=== PATIENT | male | born 1945 | race Caucasian/White ===

== ENCOUNTER 2023-05-15 14:44 | Outpatient (AMB) | payer MEDICARE, SELFPAY ==
[2023-05-15 14:51] VITALS: BP 114/64; PULSE 66; O2SAT 95; BMI 27.2
--- NOTE | 2023-05-15 14:51 | A.OFFVIS_ITS ---
Intake Vital Signs 05/15/23 14:51 Height 5 ft 9 in Weight 184 lb 1.376 oz BMI 27.2 BP 114/64 Blood Pressure Location Rt brachial Position Sitting Pulse 66 Pulse Source Pulse Oximeter Pulse Oximetry (%) 95 Oxygen Delivery Method Room Air Intake Visit Reasons: Abnormal CT scan Regional Director Of Admissions Required: No Transportation Maintenance Specialist: Transportation Maintenance Specialist offered & declined Accompanied by: Self / Same As Patient Allergies No Known Allergies Allergy (Verified 05/15/23 14:55) Medication List - Last Reconciled 05/15/23 by Jana Simpson LPN albuterol sulfate 90 mcg/actuation (ProAir HFA) 2 puffs inhalation Q4H PRN azathioprine 100 mg PO DAILY budesonide-formoterol 80-4.5 mcg/actuation (Symbicort) 2 puffs inhalation BID doxycycline hyclate 100 mg PO BID loratadine (Children's Claritin) 5 mg PO DAILY pantoprazole 40 mg PO DAILY HPI HPI Comments History of Present Illness Details The patient is here for pulmonary evaluation. 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 back in 2017 the patient developed worsening respiratory symptoms after surgery did require 2 bronchoscopy done at [facility]. He did have a endobronchial biopsy demonstrating evidence of eosinophilia along with chronic inflammation with Charcot layden crystals suggestive of the diagnosis of asthma. Over the summer the patient worsening respiratory symptoms. finally his symptoms became so significant that he decided to go to the ER back in March 2023 to be assess for the worsening symptoms. The patient states that this is the 1st time that he is actually seat urgent medical care for his respiratory status because he was so concerned. He did undergo a chest x-ray demonstrating his chronic findings primarily with parenchymal disease in the left hemithorax. Evidence of hyperinflation as well. He was treated with doxycycline and also prednisone. Overall the patient is doing better. Right now he is back to his baseline. In the meantime I did review his last CT scan from January 2023 demonstrating the cystic like area on his left hemithorax associated with bronchiectasis and he also has evidence of chronic bronchitis throughout. As far as his blood work his eosinophils were significantly elevated at 900. patient is known to have significant allergies although he has not had allergy testing some time. Base of the bronchiectatic changes need to consider conditions such as allergic bronchopulmonary mycosis. Will go ahead and request blood work in addition to allergy testing. The patient also undergo pulmonary function studies. In view of his bronchiectatic changes the patient does need a nebulizer for both bronchodilation also pulmonary hygiene. The patient also has a flutter valve already. Therefore he will start the nebulized therapy once or twice a day followed by the flutter valve for pulmonary toilet. He will try to provide a sputum both AFB and Gram staining culture. If the patient continues to be symptomatic and we can not provide a sputum then will consider bronchoscopy at that point. 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 Asthma Allergies Chronic allergic rhinitis Bronchiectasis Social History (Updated 05/15/23 @ 14:56 by Jana Simpson LPN) Patient Tobacco Use Status: Former Tobacco user Tobacco use type: Cigarette Cigarette Packs Per Day: 1 Years Smoked: 20 Review of Systems Const Denies fatigue and Denies fever(s) Eyes Denies change in vision ENT Reports nasal congestion and Reports nasal discharge Card Denies chest pain and Reports dyspnea on exertion Resp Reports chest congestion, Reports cough, Reports dyspnea on exertion and Reports wheezing GI Reports no additional complaints Musc Reports no additional complaints Skin/Breast Denies rash Neuro Reports no additional complaints Endo Denies fatigue Rob/Lymph Denies lymphadenopathy Aller/Immun Reports wheezing Physical Exam Vital Signs: Last Vital Signs Pulse 66 05/15/23 14:51 BP 114/64 05/15/23 14:51 Pulse Ox 95 05/15/23 14:51 Oxygen Delivery Method Room Air 05/15/23 14:51 BMI result Body Mass Index 27.2 Const General: comfortable HEENT Head: Yes normocephalic Neck Neck: Yes supple Chest Chest palpation & inspection: normal inspection of the chest Resp Effort & Inspection: normal respiratory effort Auscultation: no rhonchi, wheezes and diminished lung sounds Cardio Rate: regular rate Rhythm: regular rhythm Heart sounds: S1 normal heart sound present and S2 normal heart sound present GI Palpation (GI): Soft to palpation Skin General skin exam: no rashes or lesions noted Extrem General: Yes no clubbing, cyanosis or edema Office Procedures Flu Questionnaire Does the patient have a severe egg allergy?: No Does the patient have severe life threatening allergies?: No Does the patient have a fever or illness today?: No Has the patient ever had Guillain-[place] Syndrome?: No Has the patient ever had any past reaction to a flu shot?: No Immunizations flu vacc [id number] 6mos up(PF) 60 mcg(15 mcgx4)/0.5 mL IM syringe Performing Provider: Davide Guerrero MD Performing Location: [facility] Administered by: Radha Marcano LPN on 05/15/23 15:42 Dose Route Admin Location Dispensed Lot Number Expiration Date NDC Campaign Marketing Manager 0.5 mL IM Right Deltoid 0.5 mL [id number] 01/18/24 31925-399-69 [employer] VIS Given Date VIS Provided VIS Publication Date 05/15/23 Single Vaccine 21 Eligibility Eligibility Date Funding Source Not [facility] Eligible 05/15/23 Private Results Reviewed Results Reviewed: personally reviewed CT chest 02/09 with cystic lung disease and bronchiectasis; CXR 04/12 unchanged Assessment & Plan Assessment & Plan (1) Bronchiectasis: Code(s): J47.9 - Bronchiectasis, uncomplicated Qualifiers: Bronchiectasis type: uncomplicated Qualified Code(s): J47.9 - Bronchiectasis, uncomplicated (2) Chronic allergic rhinitis: Code(s): J30.9 - Allergic rhinitis, unspecified (3) Allergies: Code(s): T78.40XA - Allergy, unspecified, initial encounter Qualifiers: Encounter type: initial encounter Qualified Code(s): T78.40XA - Allergy, unspecified, initial encounter (4) Asthma: Code(s): J45.909 - Unspecified asthma, uncomplicated Qualifiers: Asthma severity: severe Asthma persistence: persistent Asthma complication type: uncomplicated Qualified Code(s): J45.50 - Severe persistent asthma, uncomplicated (5) Congenital cystic disease of lung: Code(s): Q33.0 - Congenital cystic lung Plan Nebulizer provided Albuterol BID followed by flutter valve for CPT continue symbicort Sputum cx for gs and afb bloodwork/allergy testing PFTs alpha 1 testing consider sweat test in the future F/U 2 months Orders: Orders Sputum Cult + Gram stain Today J47.9 - Bronchiectasis, uncomplicated Acid-fast Culture + Smear Today J47.9 - Bronchiectasis, uncomplicated Erythrocyte Sedimentation Rate Today J30.9 - Allergic rhinitis, unspecified, J45.909 - Unspecified asthma, uncomplicated, J47.9 - Bronchiectasis, uncomplicated, T78.40XA - Allergy, unspecified, initial encounter T Spot TB Today J30.9 - Allergic rhinitis, unspecified, J45.909 - Unspecified asthma, uncomplicated, J47.9 - Bronchiectasis, uncomplicated, T78.40XA - Allergy, unspecified, initial encounter PFT pulmonary function test Today J47.9 - Bronchiectasis, uncomplicated Influenza [id number] Immunization Today Z23 - Encounter for immunization Rast Allergen Today J30.9 - Allergic rhinitis, unspecified, J45.909 - Unspecified asthma, uncomplicated, J47.9 - Bronchiectasis, uncomplicated, T78.40XA - Allergy, unspecified, initial encounter Complete Blood Count Auto Diff Today J30.9 - Allergic rhinitis, unspecified, J45.909 - Unspecified asthma, uncomplicated, J47.9 - Bronchiectasis, uncomplicated, T78.40XA - Allergy, unspecified, initial encounter Basic Metabolic Panel Today J30.9 - Allergic rhinitis, unspecified, J45.909 - Unspecified asthma, uncomplicated, J47.9 - Bronchiectasis, uncomplicated, T78.40XA - Allergy, unspecified, initial encounter Hypersensitive Pneumonitis Prf Today J30.9 - Allergic rhinitis, unspecified, J45.909 - Unspecified asthma, uncomplicated, J47.9 - Bronchiectasis, uncomplicated, R91.8 - Other nonspecific abnormal finding of lung field, T78.40XA - Allergy, unspecified, initial encounter Immunoglobulin E Today J30.9 - Allergic rhinitis, unspecified, J45.909 - Unspecified asthma, uncomplicated, J47.9 - Bronchiectasis, uncomplicated, T78.40XA - Allergy, unspecified, initial encounter Immunoglobulins,IgG IgA IgM Today J30.9 - Allergic rhinitis, unspecified, J45.909 - Unspecified asthma, uncomplicated, J47.9 - Bronchiectasis, uncomplicated, T78.40XA - Allergy, unspecified, initial encounter NAIDA Reflex Titer and Pattern Today J30.9 - Allergic rhinitis, unspecified, J45.909 - Unspecified asthma, uncomplicated, J47.9 - Bronchiectasis, uncomplicated, T78.40XA - Allergy, unspecified, initial encounter Medications: New albuterol sulfate 2.5 mg (3 mL) inhalation BID 30 days 180 mL 11RF J44.89 - Other specified chronic obstructive pulmonary disease Coding Level of Care Code New Pt Level 5 (33300) Diagnoses Bronchiectasis without complication J47.9 Bronchiectasis type: uncomplicated Chronic allergic rhinitis J30.9 Allergy, initial encounter T78.40XA Encounter type: initial encounter Severe persistent asthma without complication J45.50 Asthma severity: severe Asthma persistence: persistent Asthma complication type: uncomplicated Congenital cystic disease of lung Q33.0 Time Spent (min) 60
== END 2023-05-15 15:31 | disposition home or self-care (01) ==
PROVIDERS: PCP Internal Medicine; Referring Provider Internal Medicine; Visit Provider Hospitalist
DX: J45.50 Severe persistent asthma, uncomplicated (principal); J30.9 Allergic rhinitis, unspecified; T78.40XA Allergy, unspecified, initial encounter; Q33.0 Congenital cystic lung
CPT/HCPCS: 99205

== ENCOUNTER → 2023-05-15 14:44 | Outpatient (BNVA) | payer MEDICARE, SELFPAY | PROVIDERS: PCP Internal Medicine; Referring Provider Internal Medicine; Visit Provider Hospitalist | DX: Z23 Encounter for immunization (principal); Q33.0 Congenital cystic lung; J47.9 Bronchiectasis, uncomplicated; J30.9 Allergic rhinitis, unspecified; J45.50 Severe persistent asthma, uncomplicated; T78.40XD Allergy, unspecified, subsequent encounter | CPT/HCPCS: 90471; 90686 ==

== ENCOUNTER 2023-05-16 10:10 | Outpatient (REF) | payer MEDICARE, SELFPAY ==
[2023-05-16 10:33] LABS: MANUAL DIFF FLAG NO
[2023-05-16 10:55] LABS: Basophils Percent Auto 0.6 % (0-2); Eosinophils Absolute Auto 0.4 X10*3/uL (0.0-0.4); Eosinophils Percent Auto 7.2 % (0-4); Hematocrit 37.2 % (42.0-52.0); Hemoglobin 12.5 g/dl (14.0-18.0); Imm Gran Abs Auto 0.03 X10*3/uL (0.00-0.03); Imm Gran Pct Auto 0.6 % (0.0-0.4); Lymphocytes Absolute Auto 0.6 X10*3/uL (1.2-4.9); Lymphocytes Percent Auto 12.8 % (20-40); Mean Corpuscular HGB Conc 33.6 g/dl (31.0-36.0); Mean Corpuscular Hemoglobin 31.4 pg (27.0-33.0); Mean Corpuscular Volume 93.5 fL (80.0-98.0); Mean Platelet Volume 9.3 fL (9.4-12.4); Monocytes Absolute Auto 0.4 X10*3/uL (0.1-1.2); Neutrophils Absolute Auto 3.4 x10*3/uL (2.0-8.3); Neutrophils Percent Auto 70.8 % (45-73); Platelet Count 218 X10*3/uL (160-400); Red Blood Count 3.98 X10*6/uL (4.60-5.80); Red Cell Distribution Width 13.7 % (11.0-16.0); White Blood Count 4.9 X10*3/uL (4.8-10.8)
[2023-05-16 11:37] LABS: Erythrocyte Sedimentation Rate 14 MM/HR (0-15)
[2023-05-16 11:41] LABS: Anion Gap 12 (12-20); Blood Urea Nitrogen 25 mg/dL (9-16); Calcium 8.7 mg/dL (8.4-10.2); Carbon Dioxide 24 mmol/L (22-29); Chloride 110 mmol/L (96-108); Estimated Glomerular Filt Rate > 60; Glucose Random 152 mg/dL (60-115); Potassium 3.8 mmol/L (3.3-5.1); Sodium 142 mmol/L (135-145)
[2023-05-18 19:34] LABS: TS Negative Control Passed; TS Panel A 0; TS Panel B 0; TS Positive Control Passed; TSpotTB Negative (Negative)
[2023-05-19 15:33] LABS: Anti Nuclear Antibody Screen NEGATIVE (NEGATIVE)
[2023-05-20 06:44] LABS: Immunoglobulin E 287 kU/L (<OR=114)
[2023-05-20 10:53] LABS: IgA 166 mg/dL (70-320); IgG 1087 mg/dL (600-1540); IgM 21 mg/dL (50-300)
[2023-05-23 13:14] LABS: Asperg fumigatus Precip Abs NEGATIVE (NEGATIVE); Micropoly faeni Abs NEGATIVE (NEGATIVE); Pigeon serum Abs NEGATIVE (NEGATIVE); Saccharo pora viridis Abs NEGATIVE (NEGATIVE); Thermo candidus Abs NEGATIVE (NEGATIVE); Thermoa vulgaris #1 NEGATIVE (NEGATIVE)
== END 2023-05-16 10:11 | disposition home or self-care (01) ==
LOC: HO.LAB 10:10
PROVIDERS: PCP Internal Medicine; Visit Provider Hospitalist
DX: J47.9 Bronchiectasis, uncomplicated (principal); T78.40XA Allergy, unspecified, initial encounter; J45.909 Unspecified asthma, uncomplicated; R91.8 Other nonspecific abnormal finding of lung field
CPT/HCPCS: 36415; 80048; 82784; 82785; 85025; 85652; 86003; 86038; 86331; 86481; 86606; 86609; 87070; 87116; 87205; 87206

== ENCOUNTER → 2023-06-18 14:24 | Outpatient (REF) | payer MEDICARE, SELFPAY ==
--- NOTE | 2023-06-18 14:28 | CA_ITS ---
Transthoracic Echocardiogram Amended Patient (Last, First, Middle): Vinicio Shahid, Gender: Male Date of : 1945 Age: 77 Procedure Date: 06/18/2023 Procedure Type: Transthoracic Echocardiogram Location: OP Height: 172.72 cm Weight: 86.18 kg BSA: 2.00 m2 Heart Rate: bpm BP: 116 / 68 mmHg Dividend Clerk: SB Referring MD: Davide Guerrero MD Detector Car Operator: Elan Puri MD Symptoms: I27.20 - Pulmonary hypertension, unspecified Study Quality: Adequate ECG Rhythm: NSR with atrial flutter Conclusions: - 1. Severe LV systolic dysfunction with LVEF of 25-30% with pseudonormal filling pattern 2. Mild aortic regurgitation 3. Mildly dilated ascending aorta at 4 cm 4. Trivial pericardial effusion Findings Left Ventricle Normal left ventricular cavity size. There is normal left ventricular wall thickness. The left ventricular systolic function is severely decreased. The visually estimated ejection fraction is between 25-30%. There is severe global hypokinesis. Spectral Doppler is indicative of a pseudonormal filling pattern. Peak GLS is -10.3% which is severely reduced. Right Ventricle Normal right ventricular cavity size. There is borderline right ventricular systolic function. Atria The left atrium is normal in size. Interatrial shunt cannot be excluded. The right atrium is normal in size. Aortic Valve Normal aortic valve structure and function. There is no aortic valve stenosis. There is mild aortic valve regurgitation. Mitral Valve There is mild anterior mitral leaflet thickening. There is mild mitral annular calcification. There is mild mitral valve regurgitation. There is no mitral valve stenosis. Pulmonic Valve The pulmonic valve is likely normal. Tricuspid Valve Normal tricuspid valve structure. Tricuspid regurgitation envelope is inadequate for calculation of right ventricular systolic pressure. Normal right atrial pressure. Great Vessels The pulmonary artery was not well visualized. There is mild dilatation of the ascending aorta measuring 4.00 cm. Venous The inferior vena cava is normal in size and collapses greater than 50% with inspiration. Pericardium/Pleural There is a trivial loculated pericardial effusion overlying the left ventricle. Prior Study Comparison No prior study available for comparison. Intermittent atrial flutter noted during the study. . Dr. Guerrero informed of the results Measurements 2D Linear Measurements IVSd: 1.23 0.6-0.9/0.6-1.0 cm LVIDd: 5.28 3.9-5.3/4.2-5.9 cm LVIDd Index: 2.64 2.4-3.2/2.2-3.1 cm/m2 LVIDs: 3.60 2.0-3.6 cm LVPWd: 0.89 0.7-1.1 cm LA Diam: 4.60 2.7-3.8/3.0-4.0 cm LAIDs Index: 2.30 1.5-2.3 cm/m2 LV Mass: 268.52 67-162/88-224 g LV Mass Index: 134.26 43-95/49-115 g/m2 LVOT Diam: 2.30 3.0+(-)1.3 cm 2D Volumes LA Vol: 24.10 2D Systolic Function EF 4C: 29.80 >55% EF 2C: 31.30 >55% EF BiP: 29.70 >55% Mitral Valve MV Pk E: 1.11 MV PK A: 0.83 MV Decel Time: 135.00 E/A: 1.30 E'Lateral: 4.68 E'Medial: 4.35 E/E' Med: 25.50 E/E' Lat: 23.70 PHT: 40.00 MVA PHT: 5.50 Decel Rolette: 8.23 Aortic Valve AoV Pk Aston: 1.05 AoV Pk Grad: 4.00 ARUN: 3.52 LVOT LVOT Pk Aston: 0.84 LVOT Mn Aston: 0.63 LVOT VTI: 0.20 LVOT Pk Grad: 3.00 LVOT Mn Grad: 2.00 LVOT Diam: 2.30 LVOT Area: 4.15 Diastolic Function MV Pk E: 1.11 MV Pk A: 0.83 E/A: 1.30 E'Medial: 4.35 E/E' Med: 25.50 E' Laterial: 4.68 E/E' Lat: 23.70 Right Ventricle TAPSE (mm): 17.80 TVS' Aston: 10.70 Tricuspid Valve TR Pk Aston: 2.76 TR Pk Grad: 31.00 RA Press: 3.00 Great Vessels Aorta Sinus of Valsalva: 3.50 2.0-3.5 cm Ao Asc: 4.00 2.1-3.4 cm Pulmonary Valve PV Pk Aston: 1.06 Peak PV Grad: 4.00 Updated in Other Vendor System with Status of Final Elan Puri MD electronically signed on 06/19/2023 12:48:38 PM with status of Final
== END ==
LOC: HO.CARD 14:24
PROVIDERS: PCP Internal Medicine; Visit Provider Hospitalist
DX: I27.20 Pulmonary hypertension, unspecified (principal)
CPT/HCPCS: 93306; 93356

== ENCOUNTER → 2023-06-18 14:28 | Outpatient (BNV) | payer MEDICARE, SELFPAY | PROVIDERS: PCP Internal Medicine; Visit Provider Internal Medicine Cardiovascular Disease | DX: I35.1 Nonrheumatic aortic (valve) insufficiency (principal); I34.0 Nonrheumatic mitral (valve) insufficiency; I48.92 Unspecified atrial flutter | CPT/HCPCS: 93306 ==

== ENCOUNTER 2023-06-20 09:56 | Outpatient (REF) | payer MEDICARE, SELFPAY ==
--- NOTE | 2023-06-20 11:41 | PFT_ITS ---
Indication: Bronchiectasis Spirometry [FEV1 to FVC 53%; FEV1 1.71 L which is 107% predicted; FVC 3.22 L which is not wearing 5% predicted. No significant response to bronchodilators noted. Maximum voluntary ventilation 53% predicted] Lung Volumes [Total lung capacity 91% predicted; residual volume 114% predicted] Diffusion Capacity [DLCO 70% predicted] Comparison [None] Interpretation [There is an obstructive ventilatory defect consistent with mild COPD. No significant response to bronchodilators noted. Moderate decrease in the maximum voluntary ventilation secondary to likely deconditioning. Lung volumes with a trend of air trapping noted. There is also mild diffusion impairment. Clinical correlation warranted.] MTDD
== END 2023-06-20 09:57 | disposition home or self-care (01) ==
LOC: HO.RESP 09:56
PROVIDERS: PCP Internal Medicine; Visit Provider Hospitalist
DX: J47.9 Bronchiectasis, uncomplicated (principal)
CPT/HCPCS: 94010; 94727; 94729

== ENCOUNTER 2023-06-24 13:45 | Outpatient (REF) | payer MEDICARE, SELFPAY ==
[2023-06-24 15:39] LABS: INTERNATIONAL NORM RATIO 0.9 (0.9-1.1); Prothrombin Time 11.1 SEC (11.1-13.3)
[2023-06-24 15:43] LABS: Hematocrit 40.5 % (42.0-52.0); Hemoglobin 13.3 g/dl (14.0-18.0); Mean Corpuscular HGB Conc 32.8 g/dl (31.0-36.0); Mean Corpuscular Hemoglobin 30.7 pg (27.0-33.0); Mean Corpuscular Volume 93.5 fL (80.0-98.0); Mean Platelet Volume 9.1 fL (9.4-12.4); Platelet Count 240 X10*3/uL (160-400); Red Blood Count 4.33 X10*6/uL (4.60-5.80); Red Cell Distribution Width 13.2 % (11.0-16.0)
[2023-06-24 15:49] LABS: Anion Gap 12 (12-20); Blood Urea Nitrogen 21 mg/dL (9-16); Calcium 9.2 mg/dL (8.4-10.2); Carbon Dioxide 28 mmol/L (22-29); Chloride 106 mmol/L (96-108); Estimated Glomerular Filt Rate > 60; Glucose Random 110 mg/dL (60-115); Potassium 4.3 mmol/L (3.3-5.1); Sodium 142 mmol/L (135-145)
== END 2023-06-24 13:46 | disposition home or self-care (01) ==
LOC: HO.LAB 13:45
PROVIDERS: PCP Internal Medicine; Visit Provider Internal Medicine Cardiovascular Disease
DX: I42.9 Cardiomyopathy, unspecified (principal)
CPT/HCPCS: 36415; 80048; 85027; 85610; 93005; 99202

== ENCOUNTER 2023-06-24 13:45 | Outpatient (AMB) | payer MEDICARE, SELFPAY ==
[2023-06-24 13:57] VITALS: BP 130/82; PULSE 83; BMI 27.3
--- NOTE | 2023-06-24 13:57 | MHC.OFFVIS ---
Intake Vital Signs 06/24/23 13:57 Height 5 ft 9 in Weight 185 lb 3.013 oz BMI 27.3 BP 130/82 Blood Pressure Location Lt brachial Position Sitting Pulse 83 Intake Visit Reasons: PATENTS EXAMINER/ Cesar/ severe LV dysfunction Intake Note: New patient severe LV Dysfunction c/o sob Cardiothoracic Anesthesia Technician Required: No Allergies No Known Allergies Allergy (Verified 05/15/23 14:55) Medication List - Last Reconciled 06/24/23 by Elan Puri MD albuterol sulfate 90 mcg/actuation (ProAir HFA) 2 puffs inhalation Q4H PRN albuterol sulfate 2.5 mg (3 mL) inhalation BID 30 days azathioprine 100 mg PO DAILY budesonide-formoterol 80-4.5 mcg/actuation (Symbicort) 2 puffs inhalation BID loratadine (Children's Claritin) 5 mg PO DAILY pantoprazole 40 mg PO DAILY HPI HPI Comments History of Present Illness Details Thank you for referring Vinicio in cardiology consultation today for abnormal echocardiogram showing severe LV systolic dysfunction. Patient is a 77-year-old male with prior history of asthma/COPD overlap syndrome for long time he says since he was very young and did not have access to medications. He has had chronic shortness of breath for many many years. More recently was started on nebulizer treatment although he does not notice any improvement in his symptoms. He has no recent worsening in his symptoms but was advised echocardiogram to evaluate for pulmonary hypertension which showed severe LV systolic dysfunction with LVEF of 25-30% with pseudonormal filling pattern mild aortic regurgitation. There is no significant pulmonary hypertension noted. Patient has not noticed any heart failure symptoms. Denies any orthopnea, PND, abdominal distension, leg edema. He continues to have exertional shortness of breath doing activities in the yd. NYHA class 2. He denies any exertional chest pain. Although he says that since knowing about the findings he has notice that his heart rate often is elevated on his smart watch without any apparent reason. Does not have any symptoms of palpitations. He does not recall having prior cardiac issues including prior myocardial infarction. He said he had workup done with stress test more than 6 years ago which was as per him normal. No family history of cardiomyopathy or congestive heart failure although his father had CT at age 47. He drinks about 1 beer a day. 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 Asthma Allergies Chronic allergic rhinitis Bronchiectasis Social History Patient Tobacco Use Status: Former Tobacco user Tobacco use type: Cigarette Cigarette Packs Per Day: 1 Years Smoked: 20 Review of Systems Const Denies chills, Denies daytime sleepiness, Denies fatigue, Denies fever(s), Denies frequent falls, Denies poor appetite, Denies snoring, Denies stops breathing during sleep, Denies weakness, Denies weight gain and Denies weight loss Eyes Denies loss of vision ENT Denies dizziness and Denies hearing loss Card Denies chest pain, Denies claudication, Denies leg edema, Denies lightheadedness, Denies palpitations, Denies dyspnea, Denies dyspnea on exertion and Denies orthopnea Resp Denies cough, Denies excessive phlegm production, Denies dyspnea, Denies dyspnea on exertion, Denies snoring and Denies wheezing GI Denies abdominal pain, Denies hematochezia, Denies change in bowel habits, Denies nausea and Denies vomiting Denies dysuria and Denies urinary frequency Musc Denies arthralgias, Denies muscle weakness, Denies numbness and Denies other (frequent falls) Skin/Breast Denies nail changes and Denies rash Neuro Denies Abnormal speech present, Denies dizziness, Denies frequent falls, Denies loss of vision, Denies memory loss, Denies numbness and Denies weakness Psych Denies depression and Denies memory loss Endo Denies fatigue and Denies palpitations Rob/Lymph Reports easy bruising and Reports other (anemia) Aller/Immun Denies wheezing Physical Exam Vital Signs: Last Vital Signs Pulse 83 06/24/23 13:57 BP 130/82 06/24/23 13:57 BMI result Body Mass Index 27.3 Const General: cooperative, comfortable, no acute distress, alert, awake and Physically active Nutritional Appearance: overweight Orientation/consciousness: patient oriented x3 Limitations: no limitations HEENT Head: Yes normocephalic and Yes atraumatic Neck Neck: Yes trachea midline, Yes supple and Yes no JVD Resp Effort & Inspection: normal respiratory effort Auscultation: clear to auscultation bilaterally and diminished lung sounds Cardio Jugular venous distension: no JVD Rate: regular rate Rhythm: regular rhythm Heart sounds: S1 normal heart sound present, S2 normal heart sound present, no click, no gallops, no murmurs and no rubs GI Auscultation: normal bowel sounds Skin General skin exam: no rashes or lesions noted Neuro General: patient oriented x3 and no focal motor deficits Speech: No Abnormal speech present Extrem General: Yes no clubbing, cyanosis or edema Office Procedures EKG Details: EKG shows normal sinus rhythm with isolated Q-wave in lead 3 which could be due to body habitus with no acute ST wave changes. [id number], Complete Assessment & Plan Assessment & Plan (1) Cardiomyopathy: Code(s): I42.9 - Cardiomyopathy, unspecified Plan: Patient with newly detected severe LV systolic dysfunction consistent with cardiomyopathy and appears to be more of a diffuse process. Cause of his cardiomyopathy is unknown however ischemic etiology needs to be completely ruled out. Given his risk factors to suggest to undergo cardiac catheterization with full hemodynamic evaluation to evaluate for coronary artery disease as well as filling pressures. Further treatment based on the findings. Clinically does appear to have significant fluid overload findings. Signs and symptoms of heart failure were discussed. Advised to call me with any new symptoms. Meanwhile will start him on neurohormonal modulation as per guideline recommendations. Will start him on Coreg 3.125 mg b.i.d. as well as valsartan 40 mg b.i.d.. Possible exacerbation of underlying pulmonary disease was discussed with carvedilol therapy. He understands. Follow-up lab work next week. Follow up in the clinic after cardiac catheterization in 3 weeks time to further uptitrate his medications. If his cardiac catheterization shows nonobstructive CAD further evaluation with cardiac MRI could be pursued at that point in time. Importance of neurohormonal modulation was discussed. Follow-up echocardiogram in 3 months time and if he has persistent LV systolic dysfunction at that time consideration for ICD placement was discussed. Will continue maximize medical therapy. Continue treat his underlying pulmonary disease. Will follow up in the clinic in 3 weeks time. Orders: Orders Complete Blood Count no Diff Today I42.9 - Cardiomyopathy, unspecified Basic Metabolic Panel Today I42.9 - Cardiomyopathy, unspecified Cardiac Cath SHILPA Diagnostic 2 Weeks I42.9 - Cardiomyopathy, unspecified Prothrombin Time INR Today I42.9 - Cardiomyopathy, unspecified Medications: New valsartan 40 mg PO BID 60 tabs 1RF carvedilol (Coreg) must administer with a meal/food 3.125 mg PO BID 60 tabs 1RF Coding Level of Care Code New Pt Level 4 (39999) Diagnoses Cardiomyopathy I42.9 CPT Codes EKG - CPT: 69723-[id number], Complete ([id number])
== END 2023-06-24 14:37 | disposition home or self-care (01) ==
PROVIDERS: PCP Internal Medicine; Visit Provider Internal Medicine Cardiovascular Disease
DX: I42.9 Cardiomyopathy, unspecified (principal)
CPT/HCPCS: 93010; 99204

== ENCOUNTER 2023-07-04 09:01 | Outpatient (AMB) | payer MEDICARE, SELFPAY ==
[2023-07-04 09:13] VITALS: BP 118/68; PULSE 92; O2SAT 95; BMI 26.3
--- NOTE | 2023-07-04 09:13 | A.OFFVIS_ITS ---
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 back in 2017 the patient developed worsening respiratory symptoms after surgery did require 2 bronchoscopy done at [place]. He did have a endobronchial biopsy demonstrating evidence of eosinophilia along with chronic inflammation with Charcot layden crystals suggestive of the diagnosis of asthma. Over the summer the patient worsening respiratory symptoms. finally his symptoms became so significant that he decided to go to the ER back in March 2023 to be assess for the worsening symptoms. The patient states that this is the 1st time that he is actually seat urgent medical care for his respiratory status because he was so concerned. He did undergo a chest x-ray demonstrating his chronic findings primarily with parenchymal disease in the left hemithorax. Evidence of hyperinflation as well. He was treated with doxycycline and also prednisone. Overall the patient is doing better. Right now he is back to his baseline. In the meantime I did review his last CT scan from January 2023 demonstrating the cystic like area on his left hemithorax associated with bronchiectasis and he also has evidence of chronic bronchitis throughout. As far as his blood work his eosinophils were significantly elevated at 900. patient is known to have significant allergies although he has not had allergy testing some time. Base of the bronchiectatic changes need to consider conditions such as allergic bronchopulmonary mycosis. Will go ahead and request blood work in addition to allergy testing. The patient also undergo pulmonary function studies. In view of his bronchiectatic changes the patient does need a nebulizer for both bronchodilation also pulmonary hygiene. The patient also has a flutter valve already. Therefore he will start the nebulized therapy once or twice a day followed by the flutter valve for pulmonary toilet. He will try to provide a sputum both AFB and Gram staining culture. If the patient continues to be symptomatic and we can not provide a sputum then will consider bronchoscopy at that point. 07/04/2023 the patient is here for a pul [facility] follow-up visit. Overall he is doing well from a respiratory status. He did have his echocardiogram and it was noted that he was having some SVT in addition to that a decreased ejection fracture. Therefore concern for cardiomyopathy and cardiac arrhythmia. He was referred to Cardiology. Currently going to get a Holter and based on his abnormal echo he is scheduled to undergo a heart catheterization. Additional respiratory status the patient is doing better. He is using the Symbicort. He gets up from cannula. Seems to be helping well. He has significant allergies both with eosinophilia and elevated IgE. Explained to him that because of his significant allergies including mold allergies in the fact that he has now or in SVT that will make it difficult for him to tolerate the beta agonist he may be a great candidate for biologics. At this point however the patient is doing well so we can just let him get his cardiac workup and when he returns in the springtime will consider biologics. We did talk about Dupixent be a good option for her. In addition to that we did check his alpha-1 genotype which was normal, mm. And his PFTs were also reviewed demonstrating any obstructive physiology consistent with his obstructive airway disease. 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 Asthma Allergies Chronic allergic rhinitis Bronchiectasis Social History Patient Tobacco Use Status: Former Tobacco user Tobacco use type: Cigarette Cigarette Packs Per Day: 1 Years Smoked: 20 Review of Systems Const Denies fatigue and Denies fever(s) Eyes Denies change in vision ENT Reports nasal congestion and Reports nasal discharge Card Denies chest pain and Reports dyspnea on exertion Resp Reports chest congestion, Reports cough, Reports dyspnea on exertion and Reports wheezing GI Reports no additional complaints Musc Reports no additional complaints Skin/Breast Denies rash Neuro Reports no additional complaints Endo Denies fatigue Rob/Lymph Denies lymphadenopathy Aller/Immun Reports wheezing Physical Exam Vital Signs: Last Vital Signs Pulse 92 07/04/23 09:13 BP 118/68 07/04/23 09:13 Pulse Ox 95 07/04/23 09:13 Oxygen Delivery Method Room Air 07/04/23 09:13 BMI result Body Mass Index 26.3 Const General: comfortable HEENT Head: Yes normocephalic Neck Neck: Yes supple Chest Chest palpation & inspection: normal inspection of the chest Resp Effort & Inspection: normal respiratory effort Auscultation: no rhonchi, no wheezes and diminished lung sounds Cardio Rate: regular rate Rhythm: regular rhythm Heart sounds: S1 normal heart sound present and S2 normal heart sound present GI Palpation (GI): Soft to palpation Skin General skin exam: no rashes or lesions noted Extrem General: Yes no clubbing, cyanosis or edema Assessment & Plan Assessment & Plan (1) Bronchiectasis: Code(s): J47.9 - Bronchiectasis, uncomplicated Qualifiers: Bronchiectasis type: uncomplicated Qualified Code(s): J47.9 - Bronchiectasis, uncomplicated (2) Chronic allergic rhinitis: Code(s): J30.9 - Allergic rhinitis, unspecified (3) Allergies: Code(s): T78.40XA - Allergy, unspecified, initial encounter Qualifiers: Encounter type: initial encounter Qualified Code(s): T78.40XA - Allergy, unspecified, initial encounter (4) Asthma: Code(s): J45.909 - Unspecified asthma, uncomplicated Qualifiers: Asthma severity: severe Asthma persistence: persistent Asthma complication type: uncomplicated Qualified Code(s): J45.50 - Severe persistent asthma, uncomplicated (5) Congenital cystic disease of lung: Code(s): Q33.0 - Congenital cystic lung (6) Cardiomyopathy: Code(s): I42.9 - Cardiomyopathy, unspecified Qualifiers: Cardiomyopathy type: unspecified Qualified Code(s): I42.9 - Cardiomyopathy, unspecified Plan Albuterol BID as needed flutter valve for CPT continue symbicort AM cardiac eval pending: Holter and cardiac cath consider sweat test in the future consider Biologic therapy: Dupixent Allergy avoidence F/U 3 months Coding Level of Care Code Est Pt Level 4 (19902) Diagnoses Bronchiectasis without complication J47.9 Bronchiectasis type: uncomplicated Chronic allergic rhinitis J30.9 Allergy, initial encounter T78.40XA Encounter type: initial encounter Severe persistent asthma without complication J45.50 Asthma severity: severe Asthma persistence: persistent Asthma complication type: uncomplicated Congenital cystic disease of lung Q33.0 Cardiomyopathy, unspecified type I42.9 Cardiomyopathy type: unspecified Time Spent (min) 17
== END 2023-07-04 09:35 | disposition home or self-care (01) ==
PROVIDERS: PCP Internal Medicine; Visit Provider Hospitalist
DX: J47.9 Bronchiectasis, uncomplicated (principal); J30.9 Allergic rhinitis, unspecified; T78.40XA Allergy, unspecified, initial encounter; J45.50 Severe persistent asthma, uncomplicated; Q33.0 Congenital cystic lung; I42.9 Cardiomyopathy, unspecified
CPT/HCPCS: 99214

== ENCOUNTER → 2023-07-04 09:36 | Outpatient (REF) | payer MEDICARE, SELFPAY ==
--- NOTE | 2023-07-04 09:39 | HM_ITS ---
Conclusion: 1. Patient was monitored for total period of 3 days 2. Baseline rhythm is normal sinus rhythm with intermittent atrial fibrillation, 47% of time with longest episode lasting about 4 minutes with the fastest heart of 156 beats per minute 3. No significant pauses noted 4. Frequent PACs noted and 1.25% 5. Frequent PVCs noted with total burden of 3% with 2 episodes of nonsustained VT noted, longest 3 beats at 178 beats per minute 6. Patient marked 1 counter event with no associated symptoms reported correlating with atrial fibrillation MTDD
== END ==
LOC: HO.CARD 09:36
PROVIDERS: PCP Internal Medicine; Visit Provider Internal Medicine Cardiovascular Disease
DX: I42.9 Cardiomyopathy, unspecified (principal); J47.9 Bronchiectasis, uncomplicated; T78.40XA Allergy, unspecified, initial encounter; J45.50 Severe persistent asthma, uncomplicated; Q33.0 Congenital cystic lung; I48.92 Unspecified atrial flutter
CPT/HCPCS: 93242; 99212

== ENCOUNTER → 2023-07-04 09:39 | Outpatient (BNV) | payer MEDICARE, SELFPAY | PROVIDERS: PCP Internal Medicine; Visit Provider Internal Medicine Cardiovascular Disease | DX: I48.0 Paroxysmal atrial fibrillation (principal) | CPT/HCPCS: 93244 ==

== ENCOUNTER → 2023-07-08 23:59 | Outpatient (BNV) | payer MEDICARE, SELFPAY | PROVIDERS: PCP Internal Medicine; Visit Provider Internal Medicine Cardiovascular Disease | DX: I42.9 Cardiomyopathy, unspecified (principal); I50.20 Unspecified systolic (congestive) heart failure | CPT/HCPCS: 93460; 99152 ==

== ENCOUNTER 2023-07-11 14:05 | Outpatient (AMB) | payer MEDICARE, SELFPAY ==
--- NOTE | 2023-07-11 14:06 | A.OFFVIS_ITS ---
Intake Vital Signs 07/11/23 14:07 Height 5 ft 9 in Weight 188 lb 7.924 oz BMI 27.8 BP 120/60 Blood Pressure Location Lt brachial Position Sitting Pulse 77 Pulse Source Pulse Oximeter Intake Visit Reasons: follow up Allergies No Known Allergies Allergy (Verified 07/04/23 09:15) Medication List - Last Reconciled 07/11/23 by Cherie Meyer, DEICER FINISHER-C albuterol sulfate 90 mcg/actuation (ProAir HFA) 2 puffs inhalation Q4H PRN albuterol sulfate 2.5 mg (3 mL) inhalation BID 30 days apixaban (Eliquis) 5 mg PO BID azathioprine 100 mg PO DAILY budesonide-formoterol 80-4.5 mcg/actuation (Symbicort) 2 puffs inhalation BID carvedilol (Coreg) 3.125 mg PO BID loratadine (Children's Claritin) 5 mg PO DAILY nebulizers As directed pantoprazole 40 mg PO DAILY valsartan 40 mg PO BID HPI follow up HPI Details Vinicio is a 77-year-old male with past medical history asthma/COPD overlap who recently had an echocardiogram to due to increased shortness of breath. He was found to have significant cardiomyopathy which led to cardiac catheterization showing no significant coronary artery disease. He had recent Holter monitor showing paroxysmal atrial fibrillation. He also had AFib noted during cardiac catheterization procedure. He has been started on Eliquis for anticoagulation and now presents for follow-up. Today he reports that he can see on his Apple watch that he has spikes seen his heart rate. He looked back and this has been occurring over the last year and half. He does not notice any rapid heartbeats or heart palpitations clinically. He has intermittent shortness of breath from asthma. He follows with Dr. Guerrero. No known diagnosis of interstitial lung disease. No chest discomfort at rest or with activity No presyncope, syncope, falls, PND, orthopnea or edema. He reports good activity tolerance. No bleeding issues with Eliquis use. Right radial catheterization site is feeling good. is present. 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 Asthma Allergies Chronic allergic rhinitis Bronchiectasis Social History Patient Tobacco Use Status: Former Tobacco user Tobacco use type: Cigarette Cigarette Packs Per Day: 1 Years Smoked: 20 Review of Systems Const All systems reviewed & are unremarkable except as noted in HPI and below ENT Denies dizziness Card Denies chest pain, Denies chest pain at rest, Denies chest pain with activity, Denies rapid heart rate, Denies pedal edema, Denies edema, Denies leg edema, Denies lightheadedness, Denies palpitations, Denies dyspnea, Denies dyspnea on exertion and Denies orthopnea Resp Denies cough, Denies dyspnea and Denies dyspnea on exertion GI Denies hematochezia and Denies change in stool character Musc Denies abnormal gait, Denies limited range of motion, Denies muscle cramps, Denies muscle weakness, Denies numbness, Denies radiating pain into limb, Denies stiffness and Denies tingling Neuro Denies abnormal gait, Denies dizziness, Denies numbness and Denies tingling Endo Denies palpitations Physical Exam Vital Signs: Last Vital Signs Pulse 77 07/11/23 14:07 BP 120/60 07/11/23 14:07 BMI result Body Mass Index 27.8 Const General: cooperative, healthy appearing, comfortable and no acute distress Orientation/consciousness: patient oriented x3 Neck Neck: Yes normal visual inspection Resp Effort & Inspection: normal respiratory effort Auscultation: clear to auscultation bilaterally, no crackles, no rales, no rhonchi and no wheezes Cardio Jugular venous distension: no JVD Rate: regular rate Rhythm: regular rhythm Heart sounds: S1 normal heart sound present, S2 normal heart sound present, no murmurs and no rubs Neuro General: patient oriented x3 Extrem Other: right radial cath site with ecchimosis proximal to site. easily palpable right radial pulse, right hand assessment normal General: Yes normal to inspection and No no pedal edema Psych Appearance: grossly normal Mental Status: mental status grossly normal Speech and movement: Normal speech and movement present Assessment & Plan Assessment & Plan (1) Cardiomyopathy: Code(s): I42.9 - Cardiomyopathy, unspecified Qualifiers: Cardiomyopathy type: unspecified Qualified Code(s): I42.9 - Cardiomyopathy, unspecified Plan: Newer finding of cardiomyopathy with echocardiogram done 06/18/2023 showing EF 25-30%, mild aortic regurgitation, mildly dilated ascending aorta 4 cm, right and left atriums of normal size. On last visit he was seen in consultation and started on carvedilol and valsartan for neurohormonal modulation. He did not have signs of heart failure on examination. NYHA class 2. He underwent cardiac catheterization on 07/08/2023 showing only minimal to mild luminal irregularities. He did have episode of paroxysmal AFib during cardiac catheterization. He was started on Eliquis at that time. His cardiomyopathy is nonischemic. At present with this new finding of paroxysmal AFib it is likely related to AFib RVR. Reviewed case with Dr. Puri, and Dr. Guerrero. Continue carvedilol and valsartan for neurohormonal modulation. No need for diuretics at this time. Will plan for recheck of limited echo once AFib has been controlled. Diagnosis of cardiomyopathy, Congestive heart failure risk reviewed with him. (2) S/P cardiac cath: Comment: 07/08/2023, left main normal, lad and left circumflex minimal luminal irregularities, RCA mild luminal irregularities Code(s): Z98.890 - Other specified postprocedural states (3) PAF (paroxysmal atrial fibrillation): Code(s): I48.0 - Paroxysmal atrial fibrillation Plan: New finding of paroxysmal atrial fibrillation, seen at time of cardiac catheterization. Patient had also had outpatient Holter monitor on 07/04/2023 for 3 days showing sinus rhythm with paroxysmal atrial fibrillation, 47% of time, rates up to 156, longest episode 4 minutes, PACs 1.25% of time, PVCs 3% of time. He was recently put on carvedilol 3.125 mg b.i.d.. Eliquis was added at time of catheterization. Chads Vasc score of 2. PAF with RVR is likely the cause of his cardiomyopathy. He needs rhythm control. Reviewed case with Dr. Puri, and Dr. Guerrero. Will start on amiodarone 400 mg b.i.d. for 14 days then reduce dose down to 200 mg daily. Will plan for office EKG in 4 days. Chest x-ray today. Pre cath labs recently completed and reviewed. Diagnosis of atrial fibrillation, stroke risk with AFib, need for rhythm control reviewed with patient and . Reviewed risks of amiodarone use and need for monitoring. Cardiology office visit in 1 month, sooner if needed (4) Sleep apnea: Code(s): G47.30 - Sleep apnea, unspecified Plan: reports that patient has witnessed apnea during sleep. He has never been diagnosed with sleep apnea in the past. It is possible that he has sleep apnea which is contributing to his paroxysmal AFib. Will check home sleep study. (5) Asthma-COPD overlap syndrome: Code(s): J44.89 - Other specified chronic obstructive pulmonary disease Plan: Stable at present. No wheezes noted on examination. Will check baseline chest x-ray today prior to amiodarone use. Follows with Dr. Guerrero. Plan Time spent on chart review, documentation, interview, assessment, MD communication Orders: Orders XR chest 2V Today J44.89 - Other specified chronic obstructive pulmonary disease RT home sleep study Today G47.30 - Sleep apnea, unspecified Medications: New amiodarone 200 mg orally 400mg ( 2 tabs) BID for 14 days then reduce to 200mg ( 1 tab) daily; 30 days 70 tabs 1RF Coding Level of Care Code Est Pt Level 4 (56885) Diagnoses Cardiomyopathy, unspecified type I42.9 Cardiomyopathy type: unspecified S/P cardiac cath Z98.890 PAF (paroxysmal atrial fibrillation) I48.0 Sleep apnea G47.30 Asthma-COPD overlap syndrome J44.89 Time Spent (min) 40
[2023-07-11 14:07] VITALS: BP 120/60; PULSE 77; BMI 27.8
== END 2023-07-11 15:11 | disposition home or self-care (01) ==
PROVIDERS: PCP Internal Medicine; Visit Provider Nurse Practitioner Family
DX: I42.9 Cardiomyopathy, unspecified (principal); Z98.890 Other specified postprocedural states; I48.0 Paroxysmal atrial fibrillation; G47.30 Sleep apnea, unspecified; J44.89 Other specified chronic obstructive pulmonary disease
CPT/HCPCS: 99214

== ENCOUNTER 2023-07-11 14:05 | Outpatient (REF) | payer MEDICARE, SELFPAY | END 2023-07-11 14:06 | disposition home or self-care (01) | LOC: HO.XRAY 14:05 | PROVIDERS: PCP Internal Medicine; Visit Provider Nurse Practitioner Family | DX: J44.89 Other specified chronic obstructive pulmonary disease (principal); I42.9 Cardiomyopathy, unspecified; I48.0 Paroxysmal atrial fibrillation; G47.30 Sleep apnea, unspecified; Z98.890 Other specified postprocedural states | CPT/HCPCS: 71046; 99212 ==

== ENCOUNTER → 2023-07-15 09:56 | Outpatient (BNVA) | payer MEDICARE, SELFPAY | PROVIDERS: PCP Internal Medicine; Visit Provider Nurse Practitioner Family ==

== ENCOUNTER 2023-07-22 09:43 | Outpatient (AMB) | payer MEDICARE, SELFPAY ==
--- NOTE | 2023-07-22 10:34 | AM.OFFVISNUR ---
Intake Intake Visit Reasons: ekg off carvidelol Intake Note: EKG - Pt had increased SOB on Amiodarone, so this was held and pt was to start carvedilol as directed, however his HR went down into low 40's after dose, Per Cherie, allow AMi to wash out and then restart Carvedilol after 2 days. Pt held 3 days, today rhythm is breaking in and out of afib captured on EKG. Costume Maker Required: No Accompanied by: Self / Same As Patient Allergies No Known Allergies Allergy (Verified 07/04/23 09:15) Followed by:: Cherie Meyer, CRM SPECIALIST Nursing Note Pt here for f/up EKG. H/O afib - feels good. Usually asymptomatic. EKG completed, auto-reading sinus rhythm at Afib w RVR low 130's - conversion pause to NSR 86 bpm. EKG on ------'s desk for review and signature. Cherie reviewed EKG. Pt needs to restart carvedilol. Pt verbalizes understanding and agrees to plan. Office Procedures EKG [id number], Complete Coding Level of Care Code Est Pt Level 1 (23180) CPT Codes EKG - CPT: 91634-[id number], Complete ([id number]) Time Spent (min) 20 Comment EKG, Medication Reconciliation, Questions, Documentation, Education
== END 2023-07-22 10:11 | disposition home or self-care (01) ==
PROVIDERS: PCP Internal Medicine; Visit Provider Internal Medicine Cardiovascular Disease
DX: I44.4 Left anterior fascicular block (principal); R94.31 Abnormal electrocardiogram [ECG] [EKG]
CPT/HCPCS: 93010

== ENCOUNTER → 2023-07-22 09:43 | Outpatient (BNVA) | payer MEDICARE, SELFPAY | PROVIDERS: PCP Internal Medicine; Visit Provider Internal Medicine Cardiovascular Disease | DX: I48.91 Unspecified atrial fibrillation (principal) | CPT/HCPCS: 93005 ==

== ENCOUNTER 2023-07-28 13:36 | Outpatient (REF) | payer MEDICARE, SELFPAY ==
--- NOTE | ~2023-07-28 | XR_ITS ---
EXAMINATION: XR CHEST CLINICAL INFORMATION: Pneumonia, unspecified organism COMPARISON: None available. TECHNIQUE: 2 views of the chest were obtained. FINDINGS: Slight streaky density in the lingula is unchanged and likely represents atelectasis and/or scar, less likely pneumonia. Probable left pericardial fat pad. No interstitial pulmonary edema or pneumothorax. There is stable mild enlargement of the heart. No pleural effusion. No acute osseous abnormality. XR/XR chest 2V IMPRESSION: No significant change in lingular atelectasis and/or scar, less likely pneumonia.
== END 2023-07-28 13:37 | disposition home or self-care (01) ==
LOC: HO.XRAY 13:36
PROVIDERS: PCP Internal Medicine; Visit Provider Hospitalist
DX: J18.9 Pneumonia, unspecified organism (principal); J47.9 Bronchiectasis, uncomplicated
CPT/HCPCS: 71046; 99212

== ENCOUNTER 2023-07-28 13:36 | Outpatient (AMB) | payer MEDICARE, SELFPAY ==
--- NOTE | 2023-07-28 14:19 | MHC.OFFVIS ---
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 back in 2017 the patient developed worsening respiratory symptoms after surgery did require 2 bronchoscopy done at [facility]. He did have a endobronchial biopsy demonstrating evidence of eosinophilia along with chronic inflammation with Charcot layden crystals suggestive of the diagnosis of asthma. Over the summer the patient worsening respiratory symptoms. finally his symptoms became so significant that he decided to go to the ER back in March 2023 to be assess for the worsening symptoms. The patient states that this is the 1st time that he is actually seat urgent medical care for his respiratory status because he was so concerned. He did undergo a chest x-ray demonstrating his chronic findings primarily with parenchymal disease in the left hemithorax. Evidence of hyperinflation as well. He was treated with doxycycline and also prednisone. Overall the patient is doing better. Right now he is back to his baseline. In the meantime I did review his last CT scan from January 2023 demonstrating the cystic like area on his left hemithorax associated with bronchiectasis and he also has evidence of chronic bronchitis throughout. As far as his blood work his eosinophils were significantly elevated at 900. patient is known to have significant allergies although he has not had allergy testing some time. Base of the bronchiectatic changes need to consider conditions such as allergic bronchopulmonary mycosis. Will go ahead and request blood work in addition to allergy testing. The patient also undergo pulmonary function studies. In view of his bronchiectatic changes the patient does need a nebulizer for both bronchodilation also pulmonary hygiene. The patient also has a flutter valve already. Therefore he will start the nebulized therapy once or twice a day followed by the flutter valve for pulmonary toilet. He will try to provide a sputum both AFB and Gram staining culture. If the patient continues to be symptomatic and we can not provide a sputum then will consider bronchoscopy at that point. 07/04/2023 the patient is here for a pulmonary follow-up visit. Overall he is doing well from a respiratory status. He did have his echocardiogram and it was noted that he was having some SVT in addition to that a decreased ejection fracture. Therefore concern for cardiomyopathy and cardiac arrhythmia. He was referred to Cardiology. Currently going to get a Holter and based on his abnormal echo he is scheduled to undergo a heart catheterization. Additional respiratory status the patient is doing better. He is using the Symbicort. He gets up from cannula. Seems to be helping well. He has significant allergies both with eosinophilia and elevated IgE. Explained to him that because of his significant allergies including mold allergies in the fact that he has now or in SVT that will make it difficult for him to tolerate the beta agonist he may be a great candidate for biologics. At this point however the patient is doing well so we can just let him get his cardiac workup and when he returns in the springtime will consider biologics. We did talk about Dupixent be a good option for her. In addition to that we did check his alpha-1 genotype which was normal, mm. And his PFTs were also reviewed demonstrating any obstructive physiology consistent with his obstructive airway disease. 07/28/2023 the patient is here for sick visit. Apparently he has had worsening shortness of breath. He was evaluated from a cardiac standpoint and had significant atrial fibrillation. He was placed on amiodarone had adverse reaction therefore. He was taken off it. He was placed on Coreg. Unfortunately he does have wheezing on the beta-vamsi effect can indeed worsen the breathing. The patient also had a chest x-ray prior to starting the amiodarone found to have a left lower lobe opacities suggesting pneumonia. He had called the office and will place on doxycycline. His breathing has improved a little but he is still coughing and having some shortness of breath. Also having some wheezing. We did repeat his chest x-ray today demonstrating some slight improvement of the left lower lobe process. He is also scheduled for CT scan sometime in August. The patient will be switched over to Augmentin to see if we can treat him further for a lower respiratory infection. In the meantime will continue with the Coreg for now as it is a cardioprotective medication and he does have significant cardiac disease. His heart rate continues to be significantly elevated. Unfortunately again could not tolerate the antiarrhythmic agent. 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 At this point we will hold off on any therapy for this and will discuss during his next follow-up after his CT scan. If the patient develops any worsening respiratory symptoms he is to call the office for evaluation. 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 Asthma Allergies Chronic allergic rhinitis Bronchiectasis Social History Patient Tobacco Use Status: Former Tobacco user Tobacco use type: Cigarette Cigarette Packs Per Day: 1 Years Smoked: 20 Review of Systems Const Denies fatigue and Denies fever(s) Eyes Denies change in vision ENT Reports nasal congestion and Reports nasal discharge Card Denies chest pain and Reports dyspnea on exertion Resp Reports chest congestion, Reports cough, Reports dyspnea on exertion and Reports wheezing GI Reports no additional complaints Musc Reports no additional complaints Skin/Breast Denies rash Neuro Reports no additional complaints Endo Denies fatigue Rob/Lymph Denies lymphadenopathy Aller/Immun Reports wheezing Physical Exam Vital Signs: Last Vital Signs Pulse 69 07/28/23 14:20 Pulse Ox 94 07/28/23 14:20 Oxygen Delivery Method Room Air 07/28/23 14:20 BMI result Body Mass Index 27.8 Const General: comfortable HEENT Head: Yes normocephalic Neck Neck: Yes supple Chest Chest palpation & inspection: normal inspection of the chest Resp Effort & Inspection: normal respiratory effort Auscultation: no rhonchi, no wheezes, diminished lung sounds and bronchial breath sounds on the left Cardio Rate: regular rate Rhythm: regular rhythm Heart sounds: S1 normal heart sound present and S2 normal heart sound present GI Palpation (GI): Soft to palpation Skin General skin exam: no rashes or lesions noted Extrem General: Yes no clubbing, cyanosis or edema Assessment & Plan Assessment & Plan (1) Pneumonia: Code(s): J18.9 - Pneumonia, unspecified organism Qualifiers: Pneumonia type: due to unspecified organism Laterality: left Lung location: lower lobe of lung Qualified Code(s): J18.9 - Pneumonia, unspecified organism (2) Bronchiectasis: Code(s): J47.9 - Bronchiectasis, uncomplicated Qualifiers: Bronchiectasis type: uncomplicated Qualified Code(s): J47.9 - Bronchiectasis, uncomplicated (3) Chronic allergic rhinitis: Code(s): J30.9 - Allergic rhinitis, unspecified (4) Allergies: Code(s): T78.40XA - Allergy, unspecified, initial encounter Qualifiers: Encounter type: initial encounter Qualified Code(s): T78.40XA - Allergy, unspecified, initial encounter (5) Asthma: Code(s): J45.909 - Unspecified asthma, uncomplicated Qualifiers: Asthma complication type: uncomplicated Asthma persistence: persistent Asthma severity: severe Qualified Code(s): J45.50 - Severe persistent asthma, uncomplicated (6) Congenital cystic disease of lung: Code(s): Q33.0 - Congenital cystic lung (7) Cardiomyopathy: Code(s): I42.9 - Cardiomyopathy, unspecified Qualifiers: Cardiomyopathy type: unspecified Qualified Code(s): I42.9 - Cardiomyopathy, unspecified (8) Nontuberculous mycobacterial disease of lung: Code(s): A31.0 - Pulmonary mycobacterial infection Plan start Augmentin Albuterol BID as needed, xopenex best for the heart CXR flutter valve for CPT continue symbicort AM continue low dose coreg for now consider sweat test in the future consider Biologic therapy: Dupixent Allergy avoidence F/U 2 months Orders: Orders XR chest 2V Today J18.9 - Pneumonia, unspecified organism Medications: New amoxicillin-pot clavulanate 875-125 mg 1 tab PO BID 10 days 20 tabs 0RF levalbuterol HCl 1.25 mg (3 mL) inhalation BID 30 days 180 mL 0RF J44.9 - Chronic obstructive pulmonary disease, unspecified Coding Level of Care Code Est Pt Level 4 (69605) Diagnoses Pneumonia of left lower lobe due to infectious organism J18.9 Pneumonia type: due to unspecified organism Laterality: left Lung location: lower lobe of lung Bronchiectasis without complication J47.9 Bronchiectasis type: uncomplicated Chronic allergic rhinitis J30.9 Allergy, initial encounter T78.40XA Encounter type: initial encounter Severe persistent asthma without complication J45.50 Asthma complication type: uncomplicated Asthma persistence: persistent Asthma severity: severe Congenital cystic disease of lung Q33.0 Cardiomyopathy, unspecified type I42.9 Cardiomyopathy type: unspecified Nontuberculous mycobacterial disease of lung A31.0 Time Spent (min) 17
[2023-07-28 14:20] VITALS: PULSE 69; O2SAT 94; BMI 27.8
== END 2023-07-28 14:38 | disposition home or self-care (01) ==
PROVIDERS: PCP Internal Medicine; Visit Provider Hospitalist
DX: J18.9 Pneumonia, unspecified organism (principal); J47.9 Bronchiectasis, uncomplicated; J30.9 Allergic rhinitis, unspecified; T78.40XA Allergy, unspecified, initial encounter; J45.50 Severe persistent asthma, uncomplicated; Q33.0 Congenital cystic lung; I42.9 Cardiomyopathy, unspecified; A31.0 Pulmonary mycobacterial infection
CPT/HCPCS: 99214

== ENCOUNTER 2023-08-04 14:03 | Outpatient (AMB) | payer MEDICARE, SELFPAY ==
[2023-08-04 14:42] VITALS: BP 120/62; PULSE 70; BMI 27.7
--- NOTE | 2023-08-04 14:42 | A.OFFVIS_ITS ---
Intake Vital Signs 08/04/23 14:42 Height 5 ft 9 in Weight 187 lb 6.287 oz BMI 27.7 BP 120/62 Blood Pressure Location Lt brachial Position Sitting Pulse 70 Pulse Source Pulse Oximeter Intake Visit Reasons: 1 month follow up Allergies No Known Allergies Allergy (Verified 08/04/23 14:44) Medication List - Last Reconciled 08/04/23 by SANYA Steele albuterol sulfate 90 mcg/actuation (ProAir HFA) 2 puffs inhalation Q4H PRN albuterol sulfate 2.5 mg (3 mL) inhalation BID 30 days amoxicillin-pot clavulanate 875-125 mg 1 tab PO BID 10 days apixaban (Eliquis) 5 mg PO BID azathioprine 100 mg PO DAILY budesonide-formoterol 80-4.5 mcg/actuation (Symbicort) 2 puffs inhalation BID carvedilol (Coreg) 3.125 mg PO BID 90 days levalbuterol HCl 1.25 mg (3 mL) inhalation BID 30 days loratadine (Children's Claritin) 5 mg PO DAILY nebulizers As directed pantoprazole 40 mg PO DAILY valsartan 40 mg PO BID 90 days HPI 1 month follow up HPI Details Vinicio is a 77-year-old male with past medical history of asthma/COPD overlap who did have echocardiogram for evaluation of shortness of breath and found to have significant cardiomyopathy. This led to cardiac catheterization showing no significant coronary artery disease. He underwent Holter monitoring showing paroxysmal atrial fibrillation. AFib was also noted during cardiac catheterization procedure. He was started on Eliquis for anticoagulation and carvedilol for heart rate control. On last visit he was put on amiodarone to suppress AFib and he developed increased shortness of breath. He now presents for follow-up. Today he reports that he was having shortness of breath and was treated by Dr. Guerrero for pneumonia. He still believes that the amiodarone caused him increased shortness of breath at that time. He is not noticing any heart palpitations. He has no chest discomfort at rest or with activity. No presyncope, syncope, falls. No PND, orthopnea or edema. Overall feels generally well. No bleeding issues reported with Eliquis use. is present. 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 Asthma Allergies Chronic allergic rhinitis Bronchiectasis Social History Patient Tobacco Use Status: Former Tobacco user Tobacco use type: Cigarette Cigarette Packs Per Day: 1 Years Smoked: 20 Review of Systems Const All systems reviewed & are unremarkable except as noted in HPI and below ENT Denies dizziness Card Denies chest pain, Denies chest pain at rest, Denies chest pain with activity, Denies rapid heart rate, Denies pedal edema, Denies edema, Denies leg edema, Denies lightheadedness, Denies palpitations, Denies dyspnea, Reports dyspnea on exertion and Denies orthopnea Resp Denies cough, Denies dyspnea and Reports dyspnea on exertion GI Denies hematochezia and Denies change in stool character Musc Denies abnormal gait, Denies limited range of motion, Denies muscle cramps, Denies muscle weakness, Denies numbness, Denies radiating pain into limb, Denies stiffness and Denies tingling Neuro Denies abnormal gait, Denies dizziness, Denies numbness and Denies tingling Endo Denies palpitations Physical Exam Vital Signs: Last Vital Signs Pulse 70 08/04/23 14:42 BP 120/62 08/04/23 14:42 BMI result Body Mass Index 27.7 Const General: cooperative, healthy appearing, comfortable and no acute distress Orientation/consciousness: patient oriented x3 Neck Neck: Yes normal visual inspection Resp Effort & Inspection: normal respiratory effort Auscultation: clear to auscultation bilaterally, no rales, no rhonchi and no wheezes Cardio Jugular venous distension: no JVD Rate: regular rate Rhythm: abnormal rhythm Heart sounds: S1 normal heart sound present, S2 normal heart sound present, no murmurs and no rubs Neuro General: patient oriented x3 Extrem General: Yes normal to inspection and No no pedal edema Psych Appearance: grossly normal Mental Status: mental status grossly normal Speech and movement: Normal speech and movement present Assessment & Plan Assessment & Plan (1) Cardiomyopathy: Code(s): I42.9 - Cardiomyopathy, unspecified Qualifiers: Cardiomyopathy type: unspecified Qualified Code(s): I42.9 - Cardiomyopathy, unspecified Plan: Newer finding of cardiomyopathy with echocardiogram done 06/18/2023 showing EF 25-30%, mild aortic regurgitation, mildly dilated ascending aorta 4 cm, right and left atriums of normal size. He was then started on carvedilol and valsartan for neurohormonal modulation. He did not have signs of heart failure on examination. NYHA class 2. He underwent cardiac catheterization on 07/08/2023 showing only minimal to mild luminal irregularities. He did have episode of paroxysmal AFib during cardiac catheterization. He was started on Eliquis at that time. His cardiomyopathy is nonischemic. At present with this new finding of paroxysmal AFib the cardiomyopathy is likely related to AFib RVR. Continue carvedilol and valsartan for neurohormonal modulation. No need for diuretics at this time. Signs and symptoms of heart failure reviewed with him. Will plan for limited echo 3 months after the start of medical management. Cardiology follow-up in 3 months for clinical evaluation and to go over echo results. (2) S/P cardiac cath: Comment: 07/08/2023, left main normal, lad and left circumflex minimal luminal irregularities, RCA mild luminal irregularities Code(s): Z98.890 - Other specified postprocedural states Plan: No significant CAD (3) PAF (paroxysmal atrial fibrillation): Code(s): I48.0 - Paroxysmal atrial fibrillation Plan: New finding of paroxysmal atrial fibrillation, seen at time of cardiac catheterization. Patient had also had outpatient Holter monitor on 07/04/2023 for 3 days showing sinus rhythm with paroxysmal atrial fibrillation, 47% of time, rates up to 156, longest episode 4 minutes, PACs 1.25% of time, PVCs 3% of time. He was recently put on carvedilol 3.125 mg b.i.d.. Eliquis was added at time of catheterization. Chads Vasc score of 2. PAF with RVR is likely the cause of his cardiomyopathy. He will best benefit from rhythm control. On last visit he was started on amiodarone which days later he said caused him increased shortness of breath and he was instructed to stop it. He was continued on carvedilol. Case had been discussed with Dr. Puri and Titeresitan was recommended. Patient declined as he did not want hospital admission and cause that it would incur. Today on examination his heart rate seems controlled however pulse is irregularly irregular. He does not notice any heart palpitations or shortness of breath. Last EKG done in the office on 07/22/2023 had shown atrial flutter with variable AV block, rate 131 followed by EKG minutes later showing sinus rhythm with left anterior fascicular block, rate 86. He does have COPD and recent pneumonia with wheezing. No wheezes noted on my exam. Will continue carvedilol at current dose and further discuss med management with his primary direct service provider Dr. Puri. If Tikosyn is the only option, to control his AFib then patient may consider. (4) Sleep apnea: Code(s): G47.30 - Sleep apnea, unspecified Plan: reports that patient has witnessed apnea during sleep. He has never been diagnosed with sleep apnea in the past. It is possible that he has sleep apnea which is contributing to his paroxysmal AFib. Will check home sleep study. - patient states appointment as scheduled next month (5) Asthma-COPD overlap syndrome: Code(s): J44.89 - Other specified chronic obstructive pulmonary disease Plan: Stable at present. No wheezes noted on examination. Follows with Dr. Guerrero. Plan Time spent on chart review, documentation, interview, assessment, MD communication Orders: Orders CA echo limited 09/22/23 I42.9 - Cardiomyopathy, unspecified Coding Level of Care Code Est Pt Level 4 (55828) Diagnoses Cardiomyopathy, unspecified type I42.9 Cardiomyopathy type: unspecified S/P cardiac cath Z98.890 PAF (paroxysmal atrial fibrillation) I48.0 Sleep apnea G47.30 Asthma-COPD overlap syndrome J44.89 Time Spent (min) 28
== END 2023-08-04 15:20 | disposition home or self-care (01) ==
PROVIDERS: PCP Internal Medicine; Visit Provider Nurse Practitioner Family
DX: I42.9 Cardiomyopathy, unspecified (principal); Z98.890 Other specified postprocedural states; I48.0 Paroxysmal atrial fibrillation; G47.30 Sleep apnea, unspecified; J44.89 Other specified chronic obstructive pulmonary disease
CPT/HCPCS: 99214

== ENCOUNTER → 2023-08-04 14:03 | Outpatient (BNVA) | payer MEDICARE, SELFPAY | PROVIDERS: PCP Internal Medicine; Visit Provider Nurse Practitioner Family | DX: I42.9 Cardiomyopathy, unspecified (principal); I48.0 Paroxysmal atrial fibrillation; J44.89 Other specified chronic obstructive pulmonary disease; G47.30 Sleep apnea, unspecified; Z98.890 Other specified postprocedural states | CPT/HCPCS: 99212 ==

== ENCOUNTER 2023-08-22 13:51 | Outpatient (REF) | payer MEDICARE, SELFPAY ==
--- NOTE | ~2023-08-22 | CT_ITS ---
EXAMINATION: CT CHEST WITHOUT CONTRAST CLINICAL INFORMATION: Prior abnormal imaging. COMPARISON: Chest radiographs 07/28/2023 TECHNIQUE: Multidetector volumetric CT imaging of the chest was done. Axial MIP volume rendering provided. Sagittal and coronal reformatted images were obtained. This CT examination was performed using dose optimization techniques as appropriate, variously including the following: *Automated exposure control *Adjustment of mA and/or kV according to patient size (this includes techniques or standardized protocols for targeted exams where dose is matched to indication/reason for exam; i.e. extremities or head) *Use of iterative reconstruction technique DLP: 162 mGy-cm FINDINGS: LUNGS: Minimal scarring at the lung apices. Diffuse bronchiectasis. There is bronchial wall thickening and more severe bronchiectatic changes involving the left lower lobe with numerous peribronchiolar nodules/nodular consolidation. Central airways are patent. MEDIASTINUM: No bulky axillary, hilar or mediastinal lymphadenopathy. Dilated pulmonary trunk up to 4.6 cm. Ascending thoracic aorta measures 4.0 x 4.0 cm transaxially. Heart size is normal. Small pericardial effusion. CORONARY ARTERY CALCIFICATION: Marked. PLEURA: There is no pleural effusion. No pleural mass or thickening. UPPER ABDOMEN: 1.8 cm hepatic cyst. No adrenal mass. OSSEOUS STRUCTURES: No destructive bone lesions. CT/CT chest wo IV con IMPRESSION: Severe bronchiectasis with bronchial wall thickening and peribronchiolar nodules/nodular consolidation in the left lower lobe. This may represent an acute on chronic infectious or inflammatory process. Advise clinical correlation and short interval follow-up imaging. Dilated pulmonary trunk. This can be seen in the setting of pulmonary hypertension. Small pericardial effusion.
== END 2023-08-22 13:52 | disposition home or self-care (01) ==
LOC: HO.CT 13:51
PROVIDERS: PCP Internal Medicine; Visit Provider Hospitalist
DX: R93.89 Abnormal findings on diagnostic imaging of other specified body structures (principal); J18.9 Pneumonia, unspecified organism
CPT/HCPCS: 71250

== ENCOUNTER → 2023-08-25 09:50 | Outpatient (REF) | payer MEDICARE, SELFPAY | LOC: HO.SL 09:50 | PROVIDERS: PCP Internal Medicine; Visit Provider Nurse Practitioner Family | DX: G47.33 Obstructive sleep apnea (adult) (pediatric) (principal) | CPT/HCPCS: 95806 ==

== ENCOUNTER → 2023-08-25 10:08 | Outpatient (BNV) | payer MEDICARE, SELFPAY | PROVIDERS: PCP Internal Medicine; Visit Provider Internal Medicine | DX: G47.33 Obstructive sleep apnea (adult) (pediatric) (principal) | CPT/HCPCS: 95806 ==

== ENCOUNTER 2023-09-11 14:02 | Outpatient (AMB) | payer MEDICARE, SELFPAY ==
[2023-09-11 14:29] VITALS: PULSE 63; O2SAT 94; BMI 26.6
--- NOTE | 2023-09-11 14:29 | MHC.OFFVIS ---
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 back in 2017 the patient developed worsening respiratory symptoms after surgery did require 2 bronchoscopy done at [facility]. He did have a endobronchial biopsy demonstrating evidence of eosinophilia along with chronic inflammation with Charcot layden crystals suggestive of the diagnosis of asthma. Over the summer the patient worsening respiratory symptoms. finally his symptoms became so significant that he decided to go to the ER back in March 2023 to be assess for the worsening symptoms. The patient states that this is the 1st time that he is actually seat urgent medical care for his respiratory status because he was so concerned. He did undergo a chest x-ray demonstrating his chronic findings primarily with parenchymal disease in the left hemithorax. Evidence of hyperinflation as well. He was treated with doxycycline and also prednisone. Overall the patient is doing better. Right now he is back to his baseline. In the meantime I did review his last CT scan from January 2023 demonstrating the cystic like area on his left hemithorax associated with bronchiectasis and he also has evidence of chronic bronchitis throughout. As far as his blood work his eosinophils were significantly elevated at 900. patient is known to have significant allergies although he has not had allergy testing some time. Base of the bronchiectatic changes need to consider conditions such as allergic bronchopulmonary mycosis. Will go ahead and request blood work in addition to allergy testing. The patient also undergo pulmonary function studies. In view of his bronchiectatic changes the patient does need a nebulizer for both bronchodilation also pulmonary hygiene. The patient also has a flutter valve already. Therefore he will start the nebulized therapy once or twice a day followed by the flutter valve for pulmonary toilet. He will try to provide a sputum both AFB and Gram staining culture. If the patient continues to be symptomatic and we can not provide a sputum then will consider bronchoscopy at that point. 07/04/2023 the patient is here for a pulmonary follow-up visit. Overall he is doing well from a respiratory status. He did have his echocardiogram and it was noted that he was having some SVT in addition to that a decreased ejection fracture. Therefore concern for cardiomyopathy and cardiac arrhythmia. He was referred to Cardiology. Currently going to get a Holter and based on his abnormal echo he is scheduled to undergo a heart catheterization. Additional respiratory status the patient is doing better. He is using the Symbicort. He gets up from cannula. Seems to be helping well. He has significant allergies both with eosinophilia and elevated IgE. Explained to him that because of his significant allergies including mold allergies in the fact that he has now or in SVT that will make it difficult for him to tolerate the beta agonist he may be a great candidate for biologics. At this point however the patient is doing well so we can just let him get his cardiac workup and when he returns in the springtime will consider biologics. We did talk about Dupixent be a good option for her. In addition to that we did check his alpha-1 genotype which was normal, mm. And his PFTs were also reviewed demonstrating any obstructive physiology consistent with his obstructive airway disease. 07/28/2023 the patient is here for sick visit. Apparently he has had worsening shortness of breath. He was evaluated from a cardiac standpoint and had significant atrial fibrillation. He was placed on amiodarone had adverse reaction therefore. He was taken off it. He was placed on Coreg. Unfortunately he does have wheezing on the beta-vamsi effect can indeed worsen the breathing. The patient also had a chest x-ray prior to starting the amiodarone found to have a left lower lobe opacities suggesting pneumonia. He had called the office and will place on doxycycline. His breathing has improved a little but he is still coughing and having some shortness of breath. Also having some wheezing. We did repeat his chest x-ray today demonstrating some slight improvement of the left lower lobe process. He is also scheduled for CT scan sometime in August. The patient will be switched over to Augmentin to see if we can treat him further for a lower respiratory infection. In the meantime will continue with the Coreg for now as it is a cardioprotective medication and he does have significant cardiac disease. His heart rate continues to be significantly elevated. Unfortunately again could not tolerate the antiarrhythmic agent. 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 At this point we will hold off on any therapy for this and will discuss during his next follow-up after his CT scan. If the patient develops any worsening respiratory symptoms he is to call the office for evaluation. 09/11/2023 the patient is here for a pulmonary follow-up visit. Overall the patient has been doing better. Cardiac monson he did underwent his cardiac catheterization without any significant CAD. He has been monitor closely for the cardiomyopathy though in the atrial fibrillation. He is continued to undergo a repeat echo and Holter monitor. In the meantime he is also scheduled to undergo an in-lab sleep study. Will follow-up with those results. From a respiratory status doing better. The patient has been performing the chest PT. However, he still has a cough productive in nature [id number] severity. The patient did have a CT scan of the chest that was personally reviewed. Does have the cystic bronchiectatic changes primarily the left lung was significant mucus plugging tree-in-bud. If we look at his cultures was positive for and non tuberculosis mycobacterial infection although we do not have the species. View the significant bronchiectasis mucous plugging cough will go ahead and put him on azithromycin 3 times a week. Will have an EKG from Cardiology during his follow-up although I do 1 or cells. 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 Asthma Allergies Chronic allergic rhinitis Bronchiectasis Social History Patient Tobacco Use Status: Former Tobacco user Tobacco use type: Cigarette Cigarette Packs Per Day: 1 Years Smoked: 20 Review of Systems Const Denies fatigue and Denies fever(s) Eyes Denies change in vision ENT Reports nasal congestion and Reports nasal discharge Card Denies chest pain and Reports dyspnea on exertion Resp Reports chest congestion, Reports cough, Reports dyspnea on exertion and Reports wheezing GI Reports no additional complaints Musc Reports no additional complaints Skin/Breast Denies rash Neuro Reports no additional complaints Endo Denies fatigue Rob/Lymph Denies lymphadenopathy Aller/Immun Reports wheezing Physical Exam Vital Signs: Last Vital Signs Pulse 63 09/11/23 14:29 Pulse Ox 94 09/11/23 14:29 Oxygen Delivery Method Room Air 09/11/23 14:29 BMI result Body Mass Index 26.6 Const General: comfortable HEENT Head: Yes normocephalic Neck Neck: Yes supple Chest Chest palpation & inspection: normal inspection of the chest Resp Effort & Inspection: normal respiratory effort Auscultation: no rhonchi, no wheezes, diminished lung sounds and bronchial breath sounds on the left Cardio Rate: regular rate Rhythm: regular rhythm Heart sounds: S1 normal heart sound present and S2 normal heart sound present GI Palpation (GI): Soft to palpation Skin General skin exam: no rashes or lesions noted Extrem General: Yes no clubbing, cyanosis or edema Assessment & Plan Assessment & Plan (1) Bronchiectasis: Code(s): J47.9 - Bronchiectasis, uncomplicated Qualifiers: Bronchiectasis type: uncomplicated Qualified Code(s): J47.9 - Bronchiectasis, uncomplicated (2) Chronic allergic rhinitis: Code(s): J30.9 - Allergic rhinitis, unspecified (3) Allergies: Code(s): T78.40XA - Allergy, unspecified, initial encounter Qualifiers: Encounter type: initial encounter Qualified Code(s): T78.40XA - Allergy, unspecified, initial encounter (4) Asthma: Code(s): J45.909 - Unspecified asthma, uncomplicated Qualifiers: Asthma complication type: uncomplicated Asthma persistence: persistent Asthma severity: severe Qualified Code(s): J45.50 - Severe persistent asthma, uncomplicated (5) Congenital cystic disease of lung: Code(s): Q33.0 - Congenital cystic lung (6) Cardiomyopathy: Code(s): I42.9 - Cardiomyopathy, unspecified Qualifiers: Cardiomyopathy type: unspecified Qualified Code(s): I42.9 - Cardiomyopathy, unspecified (7) Nontuberculous mycobacterial disease of lung: Code(s): A31.0 - Pulmonary mycobacterial infection Plan start Azithromycin MWF for NTM Albuterol BID as needed stop xopenex best for the heart flutter valve for CPT continue symbicort AM continue low dose coreg for now consider sweat test in the future consider Biologic therapy: Dupixent Allergy avoidence F/U 3-4 months Medications: New azithromycin Friday, Friday, Friday 500 mg PO 3XW 28 days 12 tabs 4RF Coding Level of Care Code Est Pt Level 4 (75093) Diagnoses Bronchiectasis without complication J47.9 Bronchiectasis type: uncomplicated Chronic allergic rhinitis J30.9 Allergy, initial encounter T78.40XA Encounter type: initial encounter Severe persistent asthma without complication J45.50 Asthma complication type: uncomplicated Asthma persistence: persistent Asthma severity: severe Congenital cystic disease of lung Q33.0 Cardiomyopathy, unspecified type I42.9 Cardiomyopathy type: unspecified Nontuberculous mycobacterial disease of lung A31.0 Time Spent (min) 18
== END 2023-09-11 14:56 | disposition home or self-care (01) ==
PROVIDERS: PCP Internal Medicine; Visit Provider Hospitalist
DX: J47.9 Bronchiectasis, uncomplicated (principal); J30.9 Allergic rhinitis, unspecified; T78.40XA Allergy, unspecified, initial encounter; J45.50 Severe persistent asthma, uncomplicated; Q33.0 Congenital cystic lung; I42.9 Cardiomyopathy, unspecified; A31.0 Pulmonary mycobacterial infection
CPT/HCPCS: 99214

== ENCOUNTER → 2023-09-11 14:02 | Outpatient (BNVA) | payer MEDICARE, SELFPAY | PROVIDERS: PCP Internal Medicine; Visit Provider Hospitalist | DX: J47.9 Bronchiectasis, uncomplicated (principal); J30.9 Allergic rhinitis, unspecified; J45.50 Severe persistent asthma, uncomplicated; Q33.0 Congenital cystic lung; I42.9 Cardiomyopathy, unspecified; A31.0 Pulmonary mycobacterial infection | CPT/HCPCS: 99212 ==

== ENCOUNTER → 2023-09-14 20:30 | Outpatient (REF) | payer MEDICARE, SELFPAY | LOC: HO.SL 20:30 | PROVIDERS: PCP Internal Medicine; Visit Provider Nurse Practitioner Family | DX: G47.33 Obstructive sleep apnea (adult) (pediatric) (principal); G47.34 Idiopathic sleep related nonobstructive alveolar hypoventilation; R06.83 Snoring | CPT/HCPCS: 95811 ==

== ENCOUNTER → 2023-09-14 21:01 | Outpatient (BNV) | payer MEDICARE, SELFPAY | PROVIDERS: PCP Internal Medicine; Visit Provider Internal Medicine | DX: G47.33 Obstructive sleep apnea (adult) (pediatric) (principal) | CPT/HCPCS: 95811 ==

== ENCOUNTER → 2023-09-17 13:46 | Outpatient (REF) | payer MEDICARE, SELFPAY ==
--- NOTE | 2023-09-17 13:49 | CA_ITS ---
Transthoracic Echocardiogram Patient (Last, First, Middle): Vinicio Shahid, Gender: Male Date of : 1945 Age: 78 Procedure Date: 09/17/2023 Procedure Type: Transthoracic Echocardiogram Location: OP Height: 172.72 cm Weight: 80.74 kg BSA: 1.95 m2 Heart Rate: bpm BP: 130 / 72 mmHg Airfield Manager: TO Referring MD: Cherie Meyer CONTINUOUS TOWEL ROLLER-C Symptoms: I42.9 - Cardiomyopathy, unspecified Study Quality: Fair/Contrast Conclusions: - The left ventricular systolic function is moderately decreased. The visually estimated ejection fraction is between 35-40%. Findings Procedure Information Contrast agent, definity, is being given per protocol without apparent complications. Left Ventricle Normal left ventricular cavity size. There is mildly increased left ventricular wall thickness. The left ventricular systolic function is moderately decreased. The visually estimated ejection fraction is between 35 40%. There is moderate global hypokinesis. Venous The inferior vena cava is normal in size and collapses greater than 50% with inspiration. Pericardium/Pleural There is a small loculated pericardial effusion overlying the left ventricle. Prior Study Comparison Changes noted compared to prior study dated: 06/18/2023. Improved LVEF. Measurements 2D Linear Measurements IVSd: 1.15 0.6-0.9/0.6-1.0 cm LVIDd: 5.80 3.9-5.3/4.2-5.9 cm LVIDd Index: 2.97 2.4-3.2/2.2-3.1 cm/m2 LVIDs: 4.31 2.0-3.6 cm LVPWd: 1.15 0.7-1.1 cm LV Mass: 349.78 67-162/88-224 g LV Mass Index: 179.38 43-95/49-115 g/m2 LVOT Diam: 2.40 3.0+(-)1.3 cm 2D Systolic Function EF 4C: 44.30 >55% EF 2C: 37.80 >55% EF BiP: 40.70 >55% LVOT LVOT Pk Aston: 0.93 LVOT Mn Aston: 0.53 LVOT VTI: 0.20 LVOT Pk Grad: 3.00 LVOT Mn Grad: 1.00 LVOT Diam: 2.40 LVOT Area: 4.52 Tricuspid Valve RA Press: 8.00 Updated in Other Vendor System with Status of Final Jaison Manzo MD electronically signed on 09/18/2023 7:45:48 AM with status of Final
--- NOTE | 2023-09-17 13:49 | HM_ITS ---
Conclusion: 1. Patient was monitored for total period of 2 days 2. Baseline was predominantly sinus rhythm with average heart of 75 beats per minute 3. Intermittent episodes of atrial fibrillation with total burden of 6.2%, with episode lasting 1 hour and 15 minutes with fastest heart of 151 beats per minute 4. No significant pauses noted 5. Frequent isolated PACs and PVCs noted 6. No patient reported events MTDD
== END ==
LOC: HO.CARD 13:46
PROVIDERS: PCP Internal Medicine; Visit Provider Nurse Practitioner Family
DX: I48.0 Paroxysmal atrial fibrillation (principal); I42.9 Cardiomyopathy, unspecified
CPT/HCPCS: 93242; 93308; Q9957

== ENCOUNTER → 2023-09-17 13:49 | Outpatient (BNV) | payer MEDICARE, SELFPAY | PROVIDERS: PCP Internal Medicine; Visit Provider Internal Medicine | DX: I48.0 Paroxysmal atrial fibrillation (principal) | CPT/HCPCS: 93244; 93308 ==

== ENCOUNTER → 2023-10-06 11:02 | Outpatient (BNVA) | payer MEDICARE, SELFPAY | PROVIDERS: PCP Internal Medicine; Visit Provider Internal Medicine Cardiovascular Disease | DX: I42.9 Cardiomyopathy, unspecified (principal); I48.0 Paroxysmal atrial fibrillation | CPT/HCPCS: 99212 ==

== ENCOUNTER 2023-10-06 11:03 | Outpatient (AMB) | payer MEDICARE, SELFPAY ==
[2023-10-06 11:06] VITALS: BP 120/70; PULSE 68; BMI 27.7
--- NOTE | 2023-10-06 11:06 | MHC.OFFVIS ---
Intake Vital Signs 10/06/23 11:06 Height 5 ft 9 in Weight 187 lb 6.287 oz BMI 27.7 BP 120/70 Blood Pressure Location Lt brachial Position Sitting Pulse 68 Intake Visit Reasons: follow-up after echo and holter Intake Note: Follow-up after echo and holter feeling good today to went back to 3.125 carvedilol felt the higher dose was making him sob Chopped Strand Operator Required: No Allergies amiodarone Adverse Reaction (Verified 09/11/23 14:30) Difficulty Breathing Medication List - Last Reconciled 10/06/23 by Elan Puri MD albuterol sulfate 90 mcg/actuation (ProAir HFA) 2 puffs inhalation Q4H PRN albuterol sulfate 2.5 mg (3 mL) inhalation BID 30 days apixaban (Eliquis) 5 mg PO BID 30 days azathioprine 100 mg PO DAILY azithromycin 500 mg PO 3XW 28 days budesonide-formoterol 80-4.5 mcg/actuation (Symbicort) 2 puffs inhalation BID carvedilol 3.125 mg PO BID levalbuterol HCl 1.25 mg (3 mL) inhalation BID 90 days loratadine (Children's Claritin) 5 mg PO DAILY nebulizers As directed pantoprazole 40 mg PO DAILY valsartan 40 mg PO BID 90 days HPI HPI Comments History of Present Illness Details Vinicio comes for follow-up. His recent echocardiogram shows improved LV ejection fraction to 35-40%. Patient's Holter monitor shows intermittent atrial fibrillation with total burden of 6%. He is taking his oral anticoagulation. However he could not tolerate higher dose of carvedilol as he had worsening respiratory symptoms along with chest pressure and increased requirement for inhaler therapy. He therefore is back down to 3.125 mg twice a day of carvedilol and is tolerating this well. He denies any bleeding issues or neurologic events. Denies any lightheadedness, syncope. No orthopnea, PND, leg edema. 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 Asthma Allergies Chronic allergic rhinitis Bronchiectasis Social History Patient Tobacco Use Status: Former Tobacco user Tobacco use type: Cigarette Cigarette Packs Per Day: 1 Years Smoked: 20 Review of Systems Const Denies chills, Denies fatigue, Denies fever(s), Denies frequent falls, Denies weakness, Denies weight gain and Denies weight loss ENT Denies dizziness Card Denies chest pain, Denies leg edema, Denies lightheadedness, Denies palpitations, Denies dyspnea, Denies dyspnea on exertion, Denies orthopnea and Denies other (loss of consciousness) Resp Denies cough, Denies dyspnea and Denies dyspnea on exertion GI Denies hematochezia and Denies change in stool character Musc Denies abnormal gait, Denies muscle weakness, Denies numbness, Denies radiating pain into limb and Denies tingling Neuro Denies abnormal gait, Denies dizziness, Denies frequent falls, Denies numbness, Denies tingling and Denies weakness Endo Denies fatigue and Denies palpitations Physical Exam Vital Signs: Last Vital Signs Pulse 68 10/06/23 11:06 BP 120/70 10/06/23 11:06 BMI result Body Mass Index 27.7 Const General: cooperative, healthy appearing, comfortable and no acute distress Orientation/consciousness: patient oriented x3 Neck Neck: Yes normal visual inspection Resp Effort & Inspection: normal respiratory effort Auscultation: clear to auscultation bilaterally, no rales, no rhonchi and no wheezes Cardio Jugular venous distension: no JVD Rate: regular rate Rhythm: abnormal rhythm Heart sounds: S1 normal heart sound present, S2 normal heart sound present, no murmurs and no rubs Neuro General: patient oriented x3 Extrem General: Yes normal to inspection and No no pedal edema Psych Appearance: grossly normal Mental Status: mental status grossly normal Speech and movement: Normal speech and movement present Assessment & Plan Assessment & Plan (1) Cardiomyopathy: Code(s): I42.9 - Cardiomyopathy, unspecified Qualifiers: Cardiomyopathy type: unspecified Qualified Code(s): I42.9 - Cardiomyopathy, unspecified Plan: Nonischemic cardiomyopathy improved LV ejection fraction to the moderate LV systolic dysfunction at this point time current neurohormonal modulation. He could not tolerate uptitration carvedilol therapy with symptoms of worsening bronchospasm. At this point time back to 3.125 mg of carvedilol and tolerating well. In the future if this becomes an issue consider switching to bisoprolol therapy. Will switch his valsartan to Entresto therapy for better neurohormonal modulation risk of reduction of hospitalization related to congestive heart failure. Follow-up basic metabolic profile in 1 weeks time. Advised to monitor blood pressure at home and maintain a log and advised to call me with any side effects related to therapy. Follow up in the clinic in 4 weeks time we will further uptitrate his therapy. Follow-up limited echocardiogram in 3 months time. No indication for ICD therapy at this point in time. (2) PAF (paroxysmal atrial fibrillation): Code(s): I48.0 - Paroxysmal atrial fibrillation Plan: Paroxysmal atrial fibrillation which has remained suppressed. He did not tolerate amiodarone therapy with pulmonary complications. If he requires rhythm control approach may need to pursue therapy with Tikosyn. Continue full oral anticoagulation with Eliquis. Continue aggressive management of his asthma/COPD overlap syndrome. Continue CPAP therapy. Will follow up in the clinic in 4 weeks, sooner p.r.n.. Thank you for allowing me to partake in his care Orders: Orders Basic Metabolic Panel 1 Week I42.9 - Cardiomyopathy, unspecified Medications: New sacubitril-valsartan 24-26 mg (Entresto) 1 tab PO BID 60 tabs 5RF Discontinued valsartan Discontinued Reason: Doctor's Order 40 mg PO BID 90 days 180 tabs 1RF Coding Level of Care Code Est Pt Level 4 (33399) Diagnoses Cardiomyopathy, unspecified type I42.9 Cardiomyopathy type: unspecified PAF (paroxysmal atrial fibrillation) I48.0
== END 2023-10-06 11:27 | disposition home or self-care (01) ==
PROVIDERS: PCP Internal Medicine; Visit Provider Internal Medicine Cardiovascular Disease
DX: I42.9 Cardiomyopathy, unspecified (principal); I48.0 Paroxysmal atrial fibrillation
CPT/HCPCS: 99214

== ENCOUNTER 2023-10-16 11:10 | Outpatient (REF) | payer MEDICARE, SELFPAY ==
[2023-10-16 15:53] LABS: Anion Gap 11 (12-20); Blood Urea Nitrogen 25 mg/dL (9-16); Calcium 8.9 mg/dL (8.4-10.2); Carbon Dioxide 29 mmol/L (22-29); Chloride 108 mmol/L (96-108); Estimated Glomerular Filt Rate 51; Glucose Random 130 mg/dL (60-115); Potassium 4.6 mmol/L (3.3-5.1); Sodium 143 mmol/L (135-145)
== END 2023-10-16 11:11 | disposition home or self-care (01) ==
LOC: HO.WFDLDS 11:10
PROVIDERS: Visit Provider Internal Medicine Cardiovascular Disease
DX: I42.9 Cardiomyopathy, unspecified (principal)
CPT/HCPCS: 36415; 80048

== ENCOUNTER 2023-10-28 14:07 | Outpatient (AMB) | payer MEDICARE, SELFPAY ==
--- NOTE | 2023-10-28 14:28 | A.OFFVIS_ITS ---
Intake Vital Signs 10/28/23 14:29 Height 5 ft 9 in Weight 186 lb 8.177 oz BMI 27.5 BP 120/62 Blood Pressure Location Lt brachial Position Sitting Pulse 74 Pulse Source Monitor Intake Visit Reasons: 1 mth f/up Allergies sacubitril [From Entresto] Adverse Reaction (Intermediate, Verified 10/28/23 14:33) Palpitations/Afib amiodarone Adverse Reaction (Verified 10/28/23 14:33) Difficulty Breathing Medication List - Last Reconciled 10/28/23 by SANYA Steele albuterol sulfate 90 mcg/actuation (ProAir HFA) 2 puffs inhalation Q4H PRN albuterol sulfate 2.5 mg (3 mL) inhalation BID 30 days apixaban (Eliquis) 5 mg PO BID 30 days azathioprine 100 mg PO DAILY azithromycin 500 mg PO 3XW 28 days budesonide-formoterol 80-4.5 mcg/actuation (Symbicort) 2 puffs inhalation BID carvedilol 3.125 mg PO BID levalbuterol HCl 1.25 mg (3 mL) inhalation BID 90 days loratadine (Children's Claritin) 5 mg PO DAILY nebulizers As directed pantoprazole 40 mg PO DAILY sacubitril-valsartan 24-26 mg (Entresto) 1 tab PO BID valsartan 40 mg PO BID 90 days HPI 1 mth f/up HPI Details Vinicio is a 78-year-old male with past medical history of asthma/COPD overlap who did have echocardiogram for evaluation of shortness of breath and found to have significant cardiomyopathy. This led to cardiac catheterization showing no significant coronary artery disease. He underwent Holter monitoring showing paroxysmal atrial fibrillation. AFib was also noted during cardiac catheterization procedure. He was started on Eliquis for anticoagulation and carvedilol for heart rate control. He was put on amiodarone to suppress AFib and he developed increased shortness of breath. He was found to have sleep apnea. He is now presents for follow-up. Today he reports that he was having episodes of elevated heart rate mostly during the night. He monitors his heart rate on his Fitbit. He shows me only rare episodes during the daytime. However during the night he can have up to 16 episodes of rapid heart rates up to 150. He is completely asymptomatic with his elevated heart rates. He has his CPAP mask however is still waiting for the machine. It is due to arrive on 11/04/2023. Has not had any chest discomfort at rest or with activity. He has his usual shortness of breath from COPD and follows with pulmonology. Recently his breathing has been stable. No presyncope, syncope, falls. No PND, orthopnea or edema. No bleeding issues reported with Eliquis use. 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 Asthma Allergies Chronic allergic rhinitis Bronchiectasis Social History Patient Tobacco Use Status: Former Tobacco user Tobacco use type: Cigarette Cigarette Packs Per Day: 1 Years Smoked: 20 Review of Systems Const All systems reviewed & are unremarkable except as noted in HPI and below ENT Denies dizziness Card Denies chest pain, Denies chest pain at rest, Denies chest pain with activity, Denies rapid heart rate, Denies pedal edema, Denies edema, Denies leg edema, Denies lightheadedness, Denies palpitations, Reports dyspnea, Denies dyspnea on exertion and Denies orthopnea Resp Denies cough, Reports dyspnea and Denies dyspnea on exertion GI Denies hematochezia and Denies change in stool character Musc Denies abnormal gait, Reports limited range of motion, Reports muscle cramps, Denies muscle weakness, Denies numbness, Denies radiating pain into limb, Denies stiffness and Denies tingling Neuro Denies abnormal gait, Denies dizziness, Denies numbness and Denies tingling Endo Denies palpitations Physical Exam Vital Signs: Last Vital Signs Pulse 74 10/28/23 14:29 BP 120/62 10/28/23 14:29 BMI result Body Mass Index 27.5 Const General: cooperative, healthy appearing, comfortable and no acute distress Orientation/consciousness: patient oriented x3 Neck Neck: Yes normal visual inspection and Yes no JVD Resp Effort & Inspection: normal respiratory effort Auscultation: clear to auscultation bilaterally, no crackles, no rales, no r honchi and no wheezes Cardio Jugular venous distension: no JVD Rate: regular rate Rhythm: regular rhythm Heart sounds: S1 normal heart sound present, S2 normal heart sound present, no murmurs and no rubs Neuro General: patient oriented x3 Extrem General: Yes normal to inspection, No no pedal edema and No calf tenderness Psych Appearance: grossly normal Mental Status: mental status grossly normal Speech and movement: Normal speech and movement present Office Procedures EKG Details: Today, read by me, normal sinus rhythm, left axis deviation, inferior infarct, rate 74, QTC 457 milliseconds [id number], Complete Assessment & Plan Assessment & Plan (1) Cardiomyopathy: Code(s): I42.9 - Cardiomyopathy, unspecified Qualifiers: Cardiomyopathy type: unspecified Qualified Code(s): I42.9 - Cardiomyopathy, unspecified Plan: Newer finding of cardiomyopathy with echocardiogram done 06/18/2023 showing EF 25-30%, mild aortic regurgitation, mildly dilated ascending aorta 4 cm, right and left atriums of normal size. He was then started on carvedilol and valsartan for neurohormonal modulation. He did not have signs of heart failure on examination. NYHA class 2. He underwent cardiac catheterization on 07/08/2023 showing only minimal to mild luminal irregularities. He did have episode of paroxysmal AFib during cardiac catheterization. He was started on Eliquis at that time. His cardiomyopathy is nonischemic. At present with this new finding of paroxysmal AFib the cardiomyopathy is likely related to AFib RVR. On follow-up his valsartan was changed to Entresto. Follow-up labs done 10/16/2023 showed potassium 4.6, creatinine 1.35, GFR 51. His GFR dropped from greater than 60. Will continue Entresto at current dose and not titrate further. He is on carvedilol 3.125 mg b.i.d.. He was not able to tolerate a higher dose of carvedilol due to shortness of breath. No need for diuretics at this time. Signs and symptoms of heart failure reviewed with him. Will plan for limited echo prior to his next visit to reassess EF. Cardiology follow-up in 2 months, sooner if needed (2) S/P cardiac cath: Comment: 07/08/2023, left main normal, lad and left circumflex minimal luminal irregularities, RCA mild luminal irregularities Code(s): Z98.890 - Other specified postprocedural states Plan: No significant CAD (3) PAF (paroxysmal atrial fibrillation): Code(s): I48.0 - Paroxysmal atrial fibrillation Plan: New finding of paroxysmal atrial fibrillation, seen at time of cardiac catheterization. Patient had also had outpatient Holter monitor on 07/04/2023 for 3 days showing sinus rhythm with paroxysmal atrial fibrillation, 47% of time, rates up to 156, longest episode 4 minutes, PACs 1.25% of time, PVCs 3% of time. He was put on carvedilol 3.125 mg b.i.d.. Eliquis was added at time of catheterization. Chads Vasc score of 2. PAF with RVR is likely the cause of his cardiomyopathy. He will best benefit from rhythm control. He was tried on amiodarone which caused him increased shortness of breath and needed to be stopped. Tikosyn was suggested however he declined due to hospital admission for the started this medicine. He has been on low-dose carvedilol only for heart rate control. Holter monitor done on 09/17/2023 showed sinus rhythm with average heart rate 75, atrial fibrillation 6.2% of the time. He has a Fitbit which shows him he is having paroxysmal episodes of atrial fibrillation assuming the device is reliable. The episodes are mostly occurring at night and are asymptomatic. He was recently found to have moderately severe obstructive sleep apnea on home sleep study 09/29/2023. He says he has his mask but is waiting for the machine which arrives on 11/04/2023. He will then be able to have treatment of sleep apnea which may help to reduce the frequency of his atrial fibrillation. At this time will continue on low-dose carvedilol. Continue Eliquis. Will check a Holter monitor 1 month after CPAP has been instituted. Cardiology follow-up when test results are available. (4) Sleep apnea: Code(s): G47.30 - Sleep apnea, unspecified Plan: Home sleep study done 09/29/2023 showing moderately severe sleep apnea with hypoxia, lowest oxygen saturation 57%, sat below 88% for 75 minutes. He has undergone sleep study titration study and is now awaiting CPAP machine arrival. (5) Asthma-COPD overlap syndrome: Code(s): J44.89 - Other specified chronic obstructive pulmonary disease Plan: Stable at present. No wheezes noted on examination. Follows with Dr. Guerrero. Plan Time spent on chart review, documentation, interview, assessment, MD communication Orders: Orders ECG 3 day holter monitor 12/08/23 G47.30 - Sleep apnea, unspecified, I48.0 - Paroxysmal atrial fibrillation CA echo limited 12/08/23 I42.9 - Cardiomyopathy, unspecified Coding Level of Care Code Est Pt Level 4 (66898) Diagnoses Cardiomyopathy, unspecified type I42.9 Cardiomyopathy type: unspecified S/P cardiac cath Z98.890 PAF (paroxysmal atrial fibrillation) I48.0 Sleep apnea G47.30 Asthma-COPD overlap syndrome J44.89 CPT Codes EKG - CPT: 20454-[id number], Complete ([id number]) Time Spent (min) 30
[2023-10-28 14:29] VITALS: BP 120/62; PULSE 74; BMI 27.5
== END 2023-10-28 15:31 | disposition home or self-care (01) ==
PROVIDERS: PCP Internal Medicine; Visit Provider Nurse Practitioner Family
DX: I42.9 Cardiomyopathy, unspecified (principal); Z98.890 Other specified postprocedural states; I48.0 Paroxysmal atrial fibrillation; G47.30 Sleep apnea, unspecified; J44.89 Other specified chronic obstructive pulmonary disease
CPT/HCPCS: 93010; 99214

== ENCOUNTER → 2023-10-28 14:07 | Outpatient (BNVA) | payer MEDICARE, SELFPAY | PROVIDERS: PCP Internal Medicine; Visit Provider Nurse Practitioner Family | DX: I42.9 Cardiomyopathy, unspecified (principal); I48.0 Paroxysmal atrial fibrillation; J44.89 Other specified chronic obstructive pulmonary disease; G47.30 Sleep apnea, unspecified; Z98.890 Other specified postprocedural states | CPT/HCPCS: 93005; 99212 ==

== ENCOUNTER 2023-11-11 14:58 | Outpatient (AMB) | payer MEDICARE, SELFPAY ==
--- NOTE | 2023-11-11 15:03 | A.OFFVIS_ITS ---
Vital Signs 11/11/23 15:04 Height 5 ft 9 in Weight 189 lb 9.561 oz BMI 28.0 BP 110/66 Blood Pressure Location Lt brachial Position Sitting Pulse 80 Intake Visit Reasons: trouble with afib Intake Note: Follow-up c/o high heart rates on watch Lead Portfolio Manager Required: No Allergies sacubitril [From Entresto] Adverse Reaction (Intermediate, Verified 10/28/23 14:33) Palpitations/Afib amiodarone Adverse Reaction (Verified 10/28/23 14:33) Difficulty Breathing Medication List - Last Reconciled 11/11/23 by Elan Puri MD albuterol sulfate 90 mcg/actuation (ProAir HFA) 2 puffs inhalation Q4H PRN albuterol sulfate 2.5 mg (3 mL) inhalation BID 30 days apixaban (Eliquis) 5 mg PO BID 30 days azathioprine 100 mg PO DAILY azithromycin 500 mg PO 3XW 28 days budesonide-formoterol 80-4.5 mcg/actuation (Symbicort) 2 puffs inhalation BID carvedilol 3.125 mg PO BID levalbuterol HCl 1.25 mg (3 mL) inhalation BID 90 days loratadine (Children's Claritin) 5 mg PO DAILY nebulizers As directed pantoprazole 40 mg PO DAILY valsartan 40 mg PO BID 90 days HPI Comments Details: Vinicio comes for follow-up as his watch monitor shows elevated heart rate. He and his are very concerned about this. He has had in the past on monitor atrial fibrillation intermittent for about a burden of 6.2%. These mostly fast heart rate are probably consistent with atrial fibrillation or artifact monitored by his smart wrist device. However he has no symptoms whatsoever during these episodes. Denies any palpitations, lightheadedness, syncope. Denies any worsening shortness of breath orthopnea. Could not tolerate higher dose of carvedilol due to pulmonary issues. He has cut down his Xopenex to 1.25 mg and has noticed no significant difference. He denies any orthopnea, PND, leg edema. Currently taking valsartan 40 mg b.i.d.. He could not tolerate Entresto as he did not feel well, not specifying it better. No bleeding issues or neurologic events. 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 Asthma Allergies Chronic allergic rhinitis Bronchiectasis Social History Patient Tobacco Use Status: Former Tobacco user Tobacco use type: Cigarette Cigarette Packs Per Day: 1 Years Smoked: 20 Review of Systems Const Denies chills, Denies fatigue, Denies fever(s), Denies frequent falls, Denies weakness, Denies weight gain and Denies weight loss ENT Denies dizziness Card Denies chest pain, Denies leg edema, Denies lightheadedness, Denies palpitations, Denies dyspnea, Denies dyspnea on exertion, Denies orthopnea and Denies other (loss of consciousness) Resp Denies cough, Denies dyspnea and Denies dyspnea on exertion GI Denies hematochezia and Denies change in stool character Musc Denies abnormal gait, Denies muscle weakness, Denies numbness, Denies radiating pain into limb and Denies tingling Neuro Denies abnormal gait, Denies dizziness, Denies frequent falls, Denies numbness, Denies tingling and Denies weakness Endo Denies fatigue and Denies palpitations Physical Exam Vital Signs: Last Vital Signs Pulse 80 11/11/23 15:04 BP 110/66 11/11/23 15:04 BMI result Body Mass Index 28.0 Const General: cooperative, healthy appearing, comfortable and no acute distress Orientation/consciousness: patient oriented x3 Neck Neck: Yes normal visual inspection and Yes no JVD Resp Effort & Inspection: normal respiratory effort Auscultation: clear to auscultation bilaterally, no crackles, no rales, no rhonchi, no wheezes and diminished lung sounds Cardio Jugular venous distension: no JVD Rate: regular rate Rhythm: regular rhythm Heart sounds: S1 normal heart sound present, S2 normal heart sound present, no murmurs and no rubs Neuro General: patient oriented x3 Extrem General: Yes normal to inspection, No no pedal edema and No calf tenderness Psych Appearance: grossly normal Mental Status: mental status grossly normal Speech and movement: Normal speech and movement present Office Procedures EKG Details: EKG shows normal sinus rhythm with occasional PACs with Q-waves in lead 3 most likely due to body habitus [id number], Complete Assessment & Plan Assessment & Plan (1) PAF (paroxysmal atrial fibrillation): Code(s): I48.0 - Paroxysmal atrial fibrillation Category: Medical Plan: Paroxysmal atrial fibrillation with his smart watch detecting intermittent episodes of fast elevated heart rate, without any obvious symptoms. He does have episodes of atrial fibrillation Holter monitor. We discussed about management of atrial fibrillation. This is not a persistent problem at this point time and should not cause any worsening of his cardiac function. He is asymptomatic. If he truly wants to suppress this he will most likely require antiarrhythmic drug although he has not tolerated amiodarone due to pulmonary side effects. Options would be to use Tikosyn but will require inpatient admission for 3 days. He does not want to do that due to cost issues. Continue carvedilol therapy can not maximize it due to pulmonary side effects. Continue full oral anticoagulation with Eliquis. Advised him not to bother about and monitor frequently his smart watch device. (2) Cardiomyopathy: Code(s): I42.9 - Cardiomyopathy, unspecified Category: Medical Qualifiers: Cardiomyopathy type: unspecified Qualified Code(s): I42.9 - Cardiomyopathy, unspecified Plan: Moderate LV systolic dysfunction without overt signs of heart failure. Continue current neurohormonal modulation. Could not tolerate Entresto therapy. Will maximize valsartan to 80 mg b.i.d.. Continue carvedilol therapy at current dose. Signs and symptoms of heart failure were discussed. Encouraged to continue to participate in physical activity as tolerated. Follow-up after recent echocardiogram. Will follow up in the clinic in 3 months time, sooner p.r.n.. Thank you for allowing me to partake in his care Medications: Changed From valsartan 40 mg PO BID 90 days 180 tabs 1RF To valsartan 80 mg (2 x 40 mg) PO BID 90 days 360 tabs 1RF Coding Level of Care Code Est Pt Level 4 (98991) Diagnoses PAF (paroxysmal atrial fibrillation) I48.0 Cardiomyopathy, unspecified type I42.9 Cardiomyopathy type: unspecified CPT Codes EKG - CPT: 24578-[id number], Complete ([id number])
[2023-11-11 15:04] VITALS: BP 110/66; PULSE 80; BMI 28.0
== END 2023-11-11 15:34 | disposition home or self-care (01) ==
PROVIDERS: PCP Internal Medicine; Visit Provider Internal Medicine Cardiovascular Disease
DX: I48.0 Paroxysmal atrial fibrillation (principal); I42.9 Cardiomyopathy, unspecified
CPT/HCPCS: 93010; 99214

== ENCOUNTER → 2023-11-11 14:58 | Outpatient (BNVA) | payer MEDICARE, SELFPAY | PROVIDERS: PCP Internal Medicine; Visit Provider Internal Medicine Cardiovascular Disease | DX: I48.0 Paroxysmal atrial fibrillation (principal); I42.9 Cardiomyopathy, unspecified; Z79.899 Other long term (current) drug therapy | CPT/HCPCS: 93005; 99212 ==

== ENCOUNTER → 2023-12-03 10:46 | Outpatient (REF) | payer MEDICARE, SELFPAY ==
--- NOTE | 2023-12-03 10:49 | HM_ITS ---
* Total monitoring time 3 days. * Underlying rhythm is sinus as well as atrial fibrillation. * Atrial fibrillation burden is 53%. Longest episode 20 hours. Fastest 169/Min. * Frequent ventricular ectopy with a burden of 5%. Evidence of couplets, triplets, bigeminy and trigeminy. Multiple morphologies. Two short runs, longest 3 beats. * Rare supraventricular ectopy. * No significant pauses or AV blocks. * No patient markers or diary events. MTDD
--- NOTE | 2023-12-03 10:49 | CA_ITS ---
Transthoracic Echocardiogram Patient (Last, First, Middle): Vinicio Shahid, Gender: Male Date of : 1945 Age: 78 Procedure Date: 12/03/2023 Procedure Type: Transthoracic Echocardiogram Location: OP Height: 172.72 cm Weight: 81.65 kg BSA: 1.95 m2 Heart Rate: 65 bpm BP: 116 / 70 mmHg Building Construction Professor: SB Referring MD: Cherie Meyer [employer] [employer] Facility Security Officer: Elan Puri MD Symptoms: I42.9 - Cardiomyopathy, unspecified Study Quality: Adequate ECG Rhythm: Sinus Conclusions: - Ocys-wh-lqirexpl LV systolic dysfunction with LVEF of 40-45% Findings Left Ventricle Mildly increased left ventricular cavity size. There is normal left ventricular wall thickness. The left ventricular systolic function is mild to moderately decreased. The visually estimated ejection fraction is between 40-45%. There is moderate global hypokinesis. Spectral Doppler is indicative of an impaired relaxation filling pattern. Peak GLS is -13.0%, moderately reduced. Prior Study Comparison Changes noted compared to prior study. LV systolic function has marginally improved Measurements 2D Linear Measurements LVIDd: 5.97 3.9-5.3/4.2-5.9 cm LVIDd Index: 3.06 2.4-3.2/2.2-3.1 cm/m2 LVIDs: 4.69 2.0-3.6 cm LVOT Diam: 2.20 3.0+(-)1.3 cm 2D Systolic Function EF 4C: 40.40 >55% EF 2C: 42.80 >55% EF BiP: 42.90 >55% Mitral Valve MV Pk E: 0.90 MV PK A: 0.48 MV Decel Time: 183.00 E/A: 1.90 E'Lateral: 6.31 E'Medial: 4.68 E/E' Med: 19.20 E/E' Lat: 14.30 PHT: 54.00 MVA PHT: 4.07 Decel [place]: 4.92 LVOT LVOT Pk Aston: 0.82 LVOT Mn Aston: 0.54 LVOT VTI: 0.19 LVOT Pk Grad: 3.00 LVOT Mn Grad: 1.00 LVOT Diam: 2.20 LVOT Area: 3.80 Diastolic Function MV Pk E: 0.90 MV Pk A: 0.48 E/A: 1.90 E'Medial: 4.68 E/E' Med: 19.20 E' Laterial: 6.31 E/E' Lat: 14.30 Right Ventricle TAPSE (mm): 18.30 TVS' Aston: 9.68 Tricuspid Valve RA Press: 3.00 Updated in Other Vendor System with Status of Final Elan Puri MD electronically signed on 12/03/2023 1:29:23 PM with status of Final
== END ==
LOC: HO.CARD 10:46
PROVIDERS: PCP Internal Medicine; Visit Provider Nurse Practitioner Family
DX: I48.0 Paroxysmal atrial fibrillation (principal); I42.9 Cardiomyopathy, unspecified; G47.30 Sleep apnea, unspecified
CPT/HCPCS: 93242; 93308; 93356

== ENCOUNTER → 2023-12-03 10:49 | Outpatient (BNV) | payer MEDICARE, SELFPAY | PROVIDERS: PCP Internal Medicine; Visit Provider Internal Medicine Cardiovascular Disease | DX: I48.91 Unspecified atrial fibrillation (principal) | CPT/HCPCS: 93244; 93308; 93321; 93356 ==

== ENCOUNTER 2023-12-23 12:49 | Outpatient (AMB) | payer MEDICARE, SELFPAY ==
--- NOTE | 2023-12-23 12:59 | MHC.OFFVIS ---
Vital Signs 12/23/23 13:00 Height 5 ft 9 in Weight 182 lb 15.739 oz BMI 27.0 BP 114/62 Blood Pressure Location Lt brachial Position Sitting Pulse 82 Pulse Source Pulse Oximeter Intake Visit Reasons: 2 mth f/up Computer Operator Required: No Allergies sacubitril [From Entresto] Adverse Reaction (Intermediate, Verified 12/23/23 13:01) Palpitations/Afib amiodarone Adverse Reaction (Verified 12/23/23 13:01) Difficulty Breathing Medication List - Last Reconciled 12/23/23 by Cherie Meyer NP-C albuterol sulfate 90 mcg/actuation (ProAir HFA) 2 puffs inhalation Q4H PRN albuterol sulfate 2.5 mg (3 mL) inhalation BID 30 days apixaban (Eliquis) 5 mg PO BID 30 days azathioprine 100 mg PO DAILY azithromycin 500 mg PO 3XW 28 days budesonide-formoterol 80-4.5 mcg/actuation (Symbicort) 2 puffs inhalation BID carvedilol 3.125 mg PO BID doxycycline monohydrate 100 mg PO DAILY levalbuterol HCl 1.25 mg (3 mL) inhalation BID 90 days loratadine (Children's Claritin) 5 mg PO DAILY nebulizers As directed valsartan 80 mg (2 x 40 mg) PO BID 90 days HPI HPI 2 mth f/up: Details: Vinicio is a 78-year-old male with past medical history of asthma/COPD overlap who did have echocardiogram for evaluation of shortness of breath and found to have significant cardiomyopathy. This led to cardiac catheterization showing no significant coronary artery disease. He underwent Holter monitoring showing paroxysmal atrial fibrillation. AFib was also noted during cardiac catheterization procedure. He was started on Eliquis for anticoagulation and carvedilol for heart rate control. He was put on amiodarone to suppress AFib and he developed increased shortness of breath. He was found to have sleep apnea and is using CPAP. He recently wore a holter monitor and now presents for follow-up. Today he reports that he does not feel the heart palpitations of atrial fibrillation. He continues to monitor his heart rate using his Fitbit. He shows me that heart rate does go up to 169 at times. He is using CPAP but tells me that he is having trouble sleeping with it. Has not had any chest discomfort at rest or with activity. He has his usual shortness of breath from COPD and follows with pulmonology. Recently his breathing has been stable. No presyncope, syncope, falls. No PND, orthopnea or edema. No bleeding issues reported with Eliquis use. 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 Asthma Allergies Chronic allergic rhinitis Bronchiectasis Social History Patient Tobacco Use Status: Former Tobacco user Tobacco use type: Cigarette Cigarette Packs Per Day: 1 Years Smoked: 20 Review of Systems Const All systems reviewed & are unremarkable except as noted in HPI and below ENT Denies dizziness Card Denies chest pain, Denies chest pain at rest, Denies chest pain with activity, Denies rapid heart rate, Denies pedal edema, Denies edema, Denies leg edema, Denies lightheadedness, Denies palpitations, Denies dyspnea, Denies dyspnea on exertion and Denies orthopnea Resp Denies cough, Denies dyspnea and Denies dyspnea on exertion GI Denies hematochezia and Denies change in stool character Musc Denies abnormal gait, Denies limited range of motion, Denies muscle cramps, Denies muscle weakness, Denies numbness, Denies radiating pain into limb, Denies stiffness and Denies tingling Neuro Denies abnormal gait, Denies dizziness, Denies numbness and Denies tingling Endo Denies palpitations Physical Exam Vital Signs: Last Vital Signs Pulse 82 12/23/23 13:00 BP 114/62 12/23/23 13:00 BMI result Body Mass Index 27.0 Const General: cooperative, healthy appearing, comfortable and no acute distress Orientation/consciousness: patient oriented x3 Neck Neck: Yes normal visual inspection and Yes no JVD Resp Effort & Inspection: normal respiratory effort Auscultation: clear to auscultation bilaterally, no crackles, no rales, no rhonchi and no wheezes Cardio Jugular venous distension: no JVD Rate: regular rate Rhythm: abnormal rhythm Heart sounds: S1 normal heart sound present, S2 normal heart sound present, no murmurs and no rubs Skin General skin exam: no rashes or lesions noted Neuro General: patient oriented x3 Extrem General: Yes normal to inspection and No no pedal edema Psych Appearance: grossly normal Mental Status: mental status grossly normal Speech and movement: Normal speech and movement present Assessment & Plan Assessment & Plan (1) PAF (paroxysmal atrial fibrillation): Code(s): I48.0 - Paroxysmal atrial fibrillation Category: Medical Plan: New finding of paroxysmal atrial fibrillation, seen at time of recent cardiac catheterization. Patient had also had outpatient Holter monitor on 07/04/2023 for 3 days showing sinus rhythm with paroxysmal atrial fibrillation, 47% of time, rates up to 156, longest episode 4 minutes, PACs 1.25% of time, PVCs 3% of time. He was put on carvedilol 3.125 mg b.i.d.. Eliquis was added at time of catheterization. Chads Vasc score of 2. PAF with RVR is likely the cause of his cardiomyopathy. He will best benefit from rhythm control. He was tried on amiodarone which caused him increased shortness of breath and needed to be stopped. Tikosyn was suggested however he declined due to hospital admission for the started this medicine. He had increased sob with higher dose Carvedilol so he remains on low dose. A Holter monitor was done on 12/03/2023 for 3 days showing sinus rhythm and atrial fibrillation, AF burden 53%, longest episode 20 hours, fastest rate 169, PVCs burden 5%, multiple morphologies, longest run 3 beats. Echocardiogram done 12/03/2023 shows EF 40-45% which is mild improvement. It would be best if rhythm control was pursued. At this time will start on digoxin 0.125 mg daily to help with heart rate control when he is in AFib. Will plan for digoxin level in 10-14 days. Continue carvedilol and Eliquis. Will refer to electrophysiology for possible AFib ablation. He is somewhat reluctant as he said his son had an ablation and it did not work. Benefit of AFib control rate viewed with him. His cardiomyopathy is likely tachycardia related. He was recently found to have moderately severe obstructive sleep apnea on home sleep study 09/29/2023. He is wearing a mask now but states he is having difficulty with compliance as he has not able to sleep well with it. Encouraged ongoing use of CPAP apnea treatment and discuss with his pulmonary provider if having ongoing issues. Cardiology follow-up in 3 months, sooner if needed. (2) Cardiomyopathy: Code(s): I42.9 - Cardiomyopathy, unspecified Category: Medical Qualifiers: Cardiomyopathy type: unspecified Qualified Code(s): I42.9 - Cardiomyopathy, unspecified Plan: Newer finding of cardiomyopathy with echocardiogram done 06/18/2023 showing EF 25-30%, mild aortic regurgitation, mildly dilated ascending aorta 4 cm, right and left atriums of normal size. He was then started on carvedilol and valsartan for neurohormonal modulation. He did not have signs of decompensated heart failure on examination. He underwent cardiac catheterization on 07/08/2023 showing only minimal to mild luminal irregularities. He did have episode of paroxysmal AFib during cardiac catheterization. He was started on Eliquis at that time. His cardiomyopathy is nonischemic. At present with this new finding of paroxysmal AFib the cardiomyopathy is likely related to AFib RVR. On follow-up his valsartan was changed to Entresto. Follow-up labs done 10/16/2023 showed potassium 4.6, creatinine 1.35, GFR 51. His GFR dropped from greater than 60. His Entresto was eventually changed back to valsartan which was then maximize last visit. No need for diuretics at this time. Most recent echo shows some improvement in EF up to 40-45%. Continue med management. Pursuing AFib rhythm control. Signs and symptoms of heart failure reviewed with him. (3) S/P cardiac cath: Comment: 07/08/2023, left main normal, lad and left circumflex minimal luminal irregularities, RCA mild luminal irregularities Code(s): Z98.890 - Other specified postprocedural states Category: Surgical Plan: No significant CAD (4) Sleep apnea: Code(s): G47.30 - Sleep apnea, unspecified Category: Medical Plan: Home sleep study done 09/29/2023 showing moderately severe sleep apnea with hypoxia, lowest oxygen saturation 57%, sat below 88% for 75 minutes. He has been evaluated by pulmonology and is now wearing CPAP mask. The importance of nightly compliance reviewed with him. (5) Asthma-COPD overlap syndrome: Code(s): J44.89 - Other specified chronic obstructive pulmonary disease Category: Medical Plan: Stable at present. No wheezes noted on examination. Follows with Dr. Guerrero. Plan Time spent on chart review, documentation, interview, assessment Orders: Orders Digoxin 1 Week I48.0 - Paroxysmal atrial fibrillation Referrals Cardiac Electrophysiology Referral I42.9 - Cardiomyopathy, unspecified, I48.0 - Paroxysmal atrial fibrillation Medications: New digoxin 125 mcg PO DAILY 30 tabs 3RF Coding Level of Care Code Est Pt Level 4 (25704) Diagnoses PAF (paroxysmal atrial fibrillation) I48.0 Cardiomyopathy, unspecified type I42.9 Cardiomyopathy type: unspecified S/P cardiac cath Z98.890 Sleep apnea G47.30 Asthma-COPD overlap syndrome J44.89 Time Spent (min) 30
[2023-12-23 13:00] VITALS: BP 114/62; PULSE 82; BMI 27.0
== END 2023-12-23 13:30 | disposition home or self-care (01) ==
PROVIDERS: PCP Internal Medicine; Visit Provider Nurse Practitioner Family
DX: I48.0 Paroxysmal atrial fibrillation (principal); I42.9 Cardiomyopathy, unspecified; Z98.890 Other specified postprocedural states; G47.30 Sleep apnea, unspecified; J44.89 Other specified chronic obstructive pulmonary disease
CPT/HCPCS: 99214

== ENCOUNTER → 2023-12-23 12:49 | Outpatient (BNVA) | payer MEDICARE, SELFPAY | PROVIDERS: PCP Internal Medicine; Visit Provider Nurse Practitioner Family | DX: I48.0 Paroxysmal atrial fibrillation (principal); I42.9 Cardiomyopathy, unspecified; G47.30 Sleep apnea, unspecified; J44.89 Other specified chronic obstructive pulmonary disease; Z79.01 Long term (current) use of anticoagulants; Z79.899 Other long term (current) drug therapy | CPT/HCPCS: 99212 ==

== ENCOUNTER 2023-12-30 13:29 | Outpatient (AMB) | payer MEDICARE, SELFPAY ==
[2023-12-30 13:33] VITALS: BP 124/70; PULSE 92; O2SAT 96; BMI 26.6
--- NOTE | 2023-12-30 13:33 | MHC.OFFVIS ---
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 back in 2017 the patient developed worsening respiratory symptoms after surgery did require 2 bronchoscopy done at [place]. He did have a endobronchial biopsy demonstrating evidence of eosinophilia along with chronic inflammation with Charcot layden crystals suggestive of the diagnosis of asthma. Over the summer the patient worsening respiratory symptoms. finally his symptoms became so significant that he decided to go to the ER back in March 2023 to be assess for the worsening symptoms. The patient states that this is the 1st time that he is actually seat urgent medical care for his respiratory status because he was so concerned. He did undergo a chest x-ray demonstrating his chronic findings primarily with parenchymal disease in the left hemithorax. Evidence of hyperinflation as well. He was treated with doxycycline and also prednisone. Overall the patient is doing better. Right now he is back to his baseline. In the meantime I did review his last CT scan from January 2023 demonstrating the cystic like area on his left hemithorax associated with bronchiectasis and he also has evidence of chronic bronchitis throughout. As far as his blood work his eosinophils were significantly elevated at 900. patient is known to have significant allergies although he has not had allergy testing some time. Base of the bronchiectatic changes need to consider conditions such as allergic bronchopulmonary mycosis. Will go ahead and request blood work in addition to allergy testing. The patient also undergo pulmonary function studies. In view of his bronchiectatic changes the patient does need a nebulizer for both bronchodilation also pulmonary hygiene. The patient also has a flutter valve already. Therefore he will start the nebulized therapy once or twice a day followed by the flutter valve for pulmonary toilet. He will try to provide a sputum both AFB and Gram staining culture. If the patient continues to be symptomatic and we can not provide a sputum then will consider bronchoscopy at that point. 07/04/2023 the patient is here for a pulmonary follow-up visit. Overall he is doing well from a respiratory status. He did have his echocardiogram and it was noted that he was having some SVT in addition to that a decreased ejection fracture. Therefore concern for cardiomyopathy and cardiac arrhythmia. He was referred to Cardiology. Currently going to get a Holter and based on his abnormal echo he is scheduled to undergo a heart catheterization. Additional respiratory status the patient is doing better. He is using the Symbicort. He gets up from cannula. Seems to be helping well. He has significant allergies both with eosinophilia and elevated IgE. Explained to him that because of his significant allergies including mold allergies in the fact that he has now or in SVT that will make it difficult for him to tolerate the beta agonist he may be a great candidate for biologics. At this point however the patient is doing well so we can just let him get his cardiac workup and when he returns in the springtime will consider biologics. We did talk about Dupixent be a good option for her. In addition to that we did check his alpha-1 genotype which was normal, mm. And his PFTs were also reviewed demonstrating any obstructive physiology consistent with his obstructive airway disease. 07/28/2023 the patient is here for sick visit. Apparently he has had worsening shortness of breath. He was evaluated from a cardiac standpoint and had significant atrial fibrillation. He was placed on amiodarone had adverse reaction therefore. He was taken off it. He was placed on Coreg. Unfortunately he does have wheezing on the beta-vamsi effect can indeed worsen the breathing. The patient also had a chest x-ray prior to starting the amiodarone found to have a left lower lobe opacities suggesting pneumonia. He had called the office and will place on doxycycline. His breathing has improved a little but he is still coughing and having some shortness of breath. Also having some wheezing. We did repeat his chest x-ray today demonstrating some slight improvement of the left lower lobe process. He is also scheduled for CT scan sometime in August. The patient will be switched over to Augmentin to see if we can treat him further for a lower respiratory infection. In the meantime will continue with the Coreg for now as it is a cardioprotective medication and he does have significant cardiac disease. His heart rate continues to be significantly elevated. Unfortunately again could not tolerate the antiarrhythmic agent. 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 At this point we will hold off on any therapy for this and will discuss during his next follow-up after his CT scan. If the patient develops any worsening respiratory symptoms he is to call the office for evaluation. 09/11/2023 the patient is here for a pulmonary follow-up visit. Overall the patient has been doing better. Cardiac monson he did underwent his cardiac catheterization without any significant CAD. He has been monitor closely for the cardiomyopathy though in the atrial fibrillation. He is continued to undergo a repeat echo and Holter monitor. In the meantime he is also scheduled to undergo an in-lab sleep study. Will follow-up with those results. From a respiratory status doing better. The patient has been performing the chest PT. However, he still has a cough productive in nature [id number] severity. The patient did have a CT scan of the chest that was personally reviewed. Does have the cystic bronchiectatic changes primarily the left lung was significant mucus plugging tree-in-bud. If we look at his cultures was positive for and non tuberculosis mycobacterial infection although we do not have the species. View the significant bronchiectasis mucous plugging cough will go ahead and put him on azithromycin 3 times a week. Will have an EKG from Cardiology during his follow-up although I do 1 or cells. 12/30/2023 the patient is here for a pulmonary follow-up visit. Overall he is doing much better from a respiratory status. He denies any significant chest congestion or cough. Continues his Symbicort typically in the morning. He had been using the albuterol or Xopenex twice a day followed by the CPT with flutter valve although he has not been doing that regularly now. The patient has been on the azithromycin 3 times a week for the mycobacterial infection. At this point though he was also having issues with atrial fibrillation where he is having more AFib at this time. He is having episodes of increased tachyarrhythmia as well. He had medication changes without any significant improvement. In addition to that he was referred to electrophysiology and was started on digoxin. Therefore, I did tell him to stop the azithromycin at this time because of the severe interaction with the digoxin that can result in a severe or life-threatening arrhythmia. Therefore he will stop it at this time. He did respond positively to the therapy and I hope that the 3-4 months that he was on it help them overall. We did review his last CT scan was back in August demonstrating a significant bronchiectasis and mucous plugging and pulmonary nodules. Will follow-up in the fall decide went to pursue a repeat CT scan. 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 Asthma Allergies Chronic allergic rhinitis Bronchiectasis Social History Patient Tobacco Use Status: Former Tobacco user Tobacco use type: Cigarette Cigarette Packs Per Day: 1 Years Smoked: 20 Review of Systems Const Denies fatigue and Denies fever(s) Eyes Denies change in vision ENT Reports nasal congestion and Reports nasal discharge Card Denies chest pain, Reports palpitations and Reports dyspnea on exertion Resp Denies chest congestion, Reports cough, Reports dyspnea on exertion and Denies wheezing GI Reports no additional complaints Musc Reports no additional complaints Skin/Breast Denies rash Neuro Reports no additional complaints Endo Denies fatigue and Reports palpitations Rob/Lymph Denies lymphadenopathy Aller/Immun Denies wheezing Physical Exam Vital Signs: Last Vital Signs Pulse 92 12/30/23 13:33 BP 124/70 12/30/23 13:33 Pulse Ox 96 12/30/23 13:33 Oxygen Delivery Method Room Air 12/30/23 13:33 BMI result Body Mass Index 26.6 Const General: comfortable HEENT Head: Yes normocephalic Neck Neck: Yes supple Chest Chest palpation & inspection: normal inspection of the chest Resp Effort & Inspection: normal respiratory effort Auscultation: no rhonchi, no wheezes and diminished lung sounds Cardio Rate: regular rate Rhythm: regular rhythm Heart sounds: S1 normal heart sound present and S2 normal heart sound present GI Palpation (GI): Soft to palpation Skin General skin exam: no rashes or lesions noted Extrem General: Yes no clubbing, cyanosis or edema Assessment & Plan Assessment & Plan (1) Bronchiectasis: Code(s): J47.9 - Bronchiectasis, uncomplicated Category: Medical Qualifiers: Bronchiectasis type: uncomplicated Qualified Code(s): J47.9 - Bronchiectasis, uncomplicated (2) Chronic allergic rhinitis: Code(s): J30.9 - Allergic rhinitis, unspecified Category: Medical (3) Allergies: Code(s): T78.40XA - Allergy, unspecified, initial encounter Category: Medical Qualifiers: Encounter type: initial encounter Qualified Code(s): T78.40XA - Allergy, unspecified, initial encounter (4) Asthma: Code(s): J45.909 - Unspecified asthma, uncomplicated Category: Medical Qualifiers: Asthma complication type: uncomplicated Asthma persistence: persistent Asthma severity: severe Qualified Code(s): J45.50 - Severe persistent asthma, uncomplicated (5) Congenital cystic disease of lung: Code(s): Q33.0 - Congenital cystic lung Category: Medical (6) Cardiomyopathy: Code(s): I42.9 - Cardiomyopathy, unspecified Category: Medical Qualifiers: Cardiomyopathy type: unspecified Qualified Code(s): I42.9 - Cardiomyopathy, unspecified (7) Nontuberculous mycobacterial disease of lung: Code(s): A31.0 - Pulmonary mycobacterial infection Category: Medical Plan stop Azithromycin MWF for NTM xopenex as needed flutter valve for CPT continue symbicort, decrease 1 puff BID continue low dose coreg for now consider sweat test in the future consider Biologic therapy: Dupixent Allergy avoidence F/U 3-4 months Medications: Discontinued azithromycin Friday, Friday, Friday Discontinued Reason: Doctor's Order 500 mg PO 3XW 28 days 12 tabs 4RF Coding Level of Care Code Est Pt Level 4 (70347) Diagnoses Bronchiectasis without complication J47.9 Bronchiectasis type: uncomplicated Chronic allergic rhinitis J30.9 Allergy, initial encounter T78.40XA Encounter type: initial encounter Severe persistent asthma without complication J45.50 Asthma complication type: uncomplicated Asthma persistence: persistent Asthma severity: severe Congenital cystic disease of lung Q33.0 Cardiomyopathy, unspecified type I42.9 Cardiomyopathy type: unspecified Nontuberculous mycobacterial disease of lung A31.0 Time Spent (min) 17
== END 2023-12-30 13:59 | disposition home or self-care (01) ==
PROVIDERS: PCP Internal Medicine; Visit Provider Hospitalist
DX: J47.9 Bronchiectasis, uncomplicated (principal); J30.9 Allergic rhinitis, unspecified; T78.40XA Allergy, unspecified, initial encounter; J45.50 Severe persistent asthma, uncomplicated; Q33.0 Congenital cystic lung; I42.9 Cardiomyopathy, unspecified; A31.0 Pulmonary mycobacterial infection
CPT/HCPCS: 99214

== ENCOUNTER → 2023-12-30 13:29 | Outpatient (BNVA) | payer MEDICARE, SELFPAY | PROVIDERS: PCP Internal Medicine; Visit Provider Hospitalist | DX: J47.9 Bronchiectasis, uncomplicated (principal); J45.50 Severe persistent asthma, uncomplicated; J30.9 Allergic rhinitis, unspecified; T78.40XA Allergy, unspecified, initial encounter; Q33.0 Congenital cystic lung; I42.9 Cardiomyopathy, unspecified; A31.0 Pulmonary mycobacterial infection | CPT/HCPCS: 99212 ==

== ENCOUNTER 2024-01-07 09:18 | Outpatient (REF) | payer MEDICARE, SELFPAY ==
[2024-01-07 12:52] LABS: Digoxin 0.3 ng/mL (0.8-2.0)
== END 2024-01-07 09:19 | disposition home or self-care (01) ==
LOC: HO.WFDLDS 09:18
PROVIDERS: Visit Provider Nurse Practitioner Family
DX: I48.0 Paroxysmal atrial fibrillation (principal)
CPT/HCPCS: 36415; 80162

== ENCOUNTER 2024-01-21 09:04 | Outpatient (REF) | payer MEDICARE, SELFPAY ==
[2024-01-21 13:10] LABS: MANUAL DIFF FLAG NO
[2024-01-21 13:13] LABS: Basophils Percent Auto 0.7 % (0-2); Eosinophils Absolute Auto 0.5 X10*3/uL (0.0-0.4); Eosinophils Percent Auto 10.1 % (0-4); Hematocrit 37.2 % (42.0-52.0); Hemoglobin 12.3 g/dl (14.0-18.0); Imm Gran Abs Auto 0.03 X10*3/uL (0.00-0.03); Imm Gran Pct Auto 0.7 % (0.0-0.4); Lymphocytes Absolute Auto 0.5 X10*3/uL (1.2-4.9); Lymphocytes Percent Auto 11.5 % (20-40); Mean Corpuscular HGB Conc 33.1 g/dl (31.0-36.0); Mean Corpuscular Hemoglobin 31.5 pg (27.0-33.0); Mean Corpuscular Volume 95.4 fL (80.0-98.0); Mean Platelet Volume 9.4 fL (9.4-12.4); Monocytes Absolute Auto 0.4 X10*3/uL (0.1-1.2); Monocytes Percent Auto 8.1 % (2-11); Neutrophils Absolute Auto 3.1 x10*3/uL (2.0-8.3); Neutrophils Percent Auto 68.9 % (45-73); Platelet Count 205 X10*3/uL (160-400); White Blood Count 4.4 X10*3/uL (4.8-10.8)
[2024-01-21 13:22] LABS: INTERNATIONAL NORM RATIO 1.1 (0.9-1.1); Prothrombin Time 13.4 SEC (11.1-13.3)
[2024-01-21 13:29] LABS: Anion Gap 10 (12-20); Blood Urea Nitrogen 19 mg/dL (9-16); Calcium 9.2 mg/dL (8.4-10.2); Carbon Dioxide 27 mmol/L (22-29); Chloride 108 mmol/L (96-108); Estimated Glomerular Filt Rate > 60; Glucose Random 103 mg/dL (60-115); Potassium 4.2 mmol/L (3.3-5.1); Sodium 141 mmol/L (135-145)
== END 2024-01-21 09:05 | disposition home or self-care (01) ==
LOC: HO.WFDLDS 09:04
PROVIDERS: PCP Internal Medicine; Visit Provider Internal Medicine Cardiovascular Disease
DX: I48.0 Paroxysmal atrial fibrillation (principal)
CPT/HCPCS: 36415; 80048; 85025; 85610

== ENCOUNTER 2024-03-30 11:03 | Outpatient (AMB) | payer MEDICARE, SELFPAY ==
[2024-03-30 11:20] VITALS: BP 120/70; PULSE 60; BMI 26.4
--- NOTE | 2024-03-30 11:20 | MHC.OFFVIS ---
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 Allergies sacubitril [From Entresto] Adverse Reaction (Intermediate, Verified 12/30/23 13:35) Palpitations/Afib amiodarone Adverse Reaction (Verified 12/30/23 13:35) Difficulty Breathing Medication List - Last Reconciled 03/30/24 by Elan Puri MD albuterol sulfate 90 mcg/actuation (ProAir HFA) 2 puffs inhalation Q4H PRN albuterol sulfate 2.5 mg (3 mL) inhalation BID 30 days apixaban (Eliquis) 5 mg PO BID 30 days azathioprine 100 mg PO DAILY budesonide-formoterol 80-4.5 mcg/actuation (Symbicort) 2 puffs inhalation BID PRN digoxin 125 mcg PO DAILY 90 days doxycycline monohydrate 100 mg PO DAILY levalbuterol HCl 1.25 mg (3 mL) inhalation BID 90 days loratadine (Children's Claritin) 5 mg PO DAILY metoprolol tartrate 50 mg PO BID nebulizers As directed valsartan 80 mg (2 x 40 mg) PO BID 90 days HPI Comments Details: Vinicio comes for follow-up after ablation procedure. He said 2 weeks after the procedure he stopped having his watch alerts telling him that he was having atrial fibrillation. He also notices that he is using his nebulizers and rescue inhalers a lot less as he is less short of breath. He denies any other cardiac symptoms of orthopnea, PND. Taking all his medications. No bleeding issues or neurologic events. No prolonged palpitation irregular heartbeat. No exertional chest pain. No lightheadedness, syncope. 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 Asthma Allergies Chronic allergic rhinitis Bronchiectasis Surgical History (Updated 03/30/24 @ 11:53 by Elan Puri MD) S/P cardiac cath Social History Patient Tobacco Use Status: Former Tobacco user Tobacco use type: Cigarette Cigarette Packs Per Day: 1 Years Smoked: 20 Review of Systems Const Denies chills, Denies fatigue, Denies fever(s), Denies frequent falls, Denies weakness, Denies weight gain and Denies weight loss ENT Denies dizziness Card Denies chest pain, Denies leg edema, Denies lightheadedness, Denies palpitations, Denies dyspnea, Denies dyspnea on exertion, Denies orthopnea and Denies other (loss of consciousness) Resp Denies cough, Denies dyspnea and Denies dyspnea on exertion GI Denies hematochezia and Denies change in stool character Musc Denies abnormal gait, Denies muscle weakness, Denies numbness, Denies radiating pain into limb and Denies tingling Neuro Denies abnormal gait, Denies dizziness, Denies frequent falls, Denies numbness, Denies tingling and Denies weakness Endo Denies fatigue and Denies palpitations Physical Exam Vital Signs: Last Vital Signs Pulse 60 03/30/24 11:20 BP 120/70 03/30/24 11:20 BMI result Body Mass Index 26.4 Const General: cooperative, healthy appearing, comfortable and no acute distress Orientation/consciousness: patient oriented x3 Neck Neck: Yes normal visual inspection and Yes no JVD Resp Effort & Inspection: normal respiratory effort Auscultation: clear to auscultation bilaterally, no crackles, no rales, no rhonchi, no wheezes and diminished lung sounds Cardio Jugular venous distension: no JVD Rate: regular rate Rhythm: regular rhythm Heart sounds: S1 normal heart sound present, S2 normal heart sound present, no murmurs and no rubs Neuro General: patient oriented x3 Extrem General: Yes normal to inspection, No no pedal edema and No calf tenderness Psych Appearance: grossly normal Mental Status: mental status grossly normal Speech and movement: Normal speech and movement present Office Procedures EKG Details: EKG shows normal sinus rhythm with Q-waves in lead 3 most likely due to body habitus [id number], Complete Assessment & Plan Assessment & Plan (1) PAF (paroxysmal atrial fibrillation): Code(s): I48.0 - Paroxysmal atrial fibrillation Category: Medical Plan: Paroxysmal atrial fibrillation with recurrent episodes status post ablation. He has had no obvious clinical atrial fibrillation episode although this is difficult to determine given that he has no obvious significant symptoms. At this point time there is no role for digoxin will discontinue as this interferes with his use of chronic pulmonary medicines. Continue full oral anticoagulation with Eliquis. Continue metoprolol therapy. Switch to Xopenex. Advised to call me with any new symptoms. Will follow up with Holter monitor in 3 months time. (2) Cardiomyopathy: Code(s): I42.9 - Cardiomyopathy, unspecified Category: Medical Qualifiers: Cardiomyopathy type: unspecified Qualified Code(s): I42.9 - Cardiomyopathy, unspecified Plan: Cardiomyopathy process new onset most likely due to recurrent atrial fibrillation rapid ventricular response. Status post ablation maintaining rhythm. Continue neurohormonal modulation with valsartan and metoprolol therapy. No signs or symptoms of heart failure. Encouraged to continue to participate in physical activity. Hoping if atrial fibrillation suppressed at his LV function will improve. Signs and symptoms of heart failure were discussed. Follow-up limited echocardiogram in 2 months time. Follow up in the clinic in 3 months time, sooner p.r.n.. Thank you for allowing me to partake in his care Coding Level of Care Code Est Pt Level 4 (28182) Diagnoses PAF (paroxysmal atrial fibrillation) I48.0 Cardiomyopathy, unspecified type I42.9 Cardiomyopathy type: unspecified CPT Codes EKG - CPT: 35903-[id number], Complete ([id number])
== END 2024-03-30 11:51 | disposition home or self-care (01) ==
PROVIDERS: PCP Internal Medicine; Visit Provider Internal Medicine Cardiovascular Disease
DX: I48.0 Paroxysmal atrial fibrillation (principal); I42.9 Cardiomyopathy, unspecified
CPT/HCPCS: 93010; 99214

== ENCOUNTER → 2024-03-30 11:03 | Outpatient (BNVA) | payer MEDICARE, SELFPAY | PROVIDERS: PCP Internal Medicine; Visit Provider Internal Medicine Cardiovascular Disease | DX: I48.0 Paroxysmal atrial fibrillation (principal); I42.9 Cardiomyopathy, unspecified | CPT/HCPCS: 93005; 99212 ==

== ENCOUNTER → 2024-05-25 09:55 | Outpatient (REF) | payer MEDICARE, SELFPAY ==
--- NOTE | 2024-05-25 10:01 | CA_ITS ---
Transthoracic Echocardiogram Patient (Last, First, Middle): Vinicio Shahid, Gender: Male Date of : 1945 Age: 78 Procedure Date: 05/25/2024 Procedure Type: Transthoracic Echocardiogram Location: OP Height: 172.72 cm Weight: 81.65 kg BSA: 1.95 m2 Heart Rate: bpm BP: 109 / 59 mmHg Braille Coder: PEÑA Referring MD: Elan Puri MD Twisting Frame Operator: Elan Puri MD Symptoms: I42.9 - Cardiomyopathy, unspecified Study Quality: Adequate ECG Rhythm: Sinus Conclusions: - Low normal LV systolic function. Findings Left Ventricle Normal left ventricular cavity size. There is normal left ventricular wall thickness. The left ventricular systolic function is low normal. The visually estimated ejection fraction is between 50-55%. Spectral Doppler is indicative of an impaired relaxation filling pattern. E/E prime ratio is between 8 and 15 consistent with indeterminate filling pressures. Pericardium/Pleural There is no evidence of pericardial effusion. Prior Study Comparison Changes noted compared to prior study dated: 12/03/2023. LV systolic function has improved. Measurements 2D Linear Measurements IVSd: 1.11 0.6-0.9/0.6-1.0 cm LVIDd: 4.61 3.9-5.3/4.2-5.9 cm LVIDd Index: 2.36 2.4-3.2/2.2-3.1 cm/m2 LVIDs: 2.93 2.0-3.6 cm LVPWd: 1.05 0.7-1.1 cm LA Diam: 4.10 2.7-3.8/3.0-4.0 cm LAIDs Index: 2.10 1.5-2.3 cm/m2 LV Mass: 220.81 67-162/88-224 g LV Mass Index: 113.24 43-95/49-115 g/m2 LVOT Diam: 2.20 3.0+(-)1.3 cm 2D Systolic Function EF 4C: 55.90 >55% EF 2C: 48.10 >55% EF BiP: 51.40 >55% Mitral Valve MV Pk E: 0.66 MV PK A: 1.01 MV Decel Time: 202.00 E/A: 0.70 E'Lateral: 5.44 E'Medial: 5.00 E/E' Med: 13.20 E/E' Lat: 12.20 PHT: 59.00 MVA PHT: 3.73 Decel George: 3.28 LVOT LVOT Pk Aston: 1.24 LVOT Mn Aston: 0.84 LVOT VTI: 0.28 LVOT Pk Grad: 6.00 LVOT Mn Grad: 3.00 LVOT Diam: 2.20 LVOT Area: 3.80 Diastolic Function MV Pk E: 0.66 MV Pk A: 1.01 E/A: 0.70 E'Medial: 5.00 E/E' Med: 13.20 E' Laterial: 5.44 E/E' Lat: 12.20 Right Ventricle TAPSE (mm): 20.30 TVS' Aston: 12.10 Tricuspid Valve RA Press: 8.00 Updated in Other Vendor System with Status of Final Elan Puri MD electronically signed on 05/26/2024 11:28:08 AM with status of Final
--- NOTE | 2024-05-25 10:01 | HM_ITS ---
* Total monitoring time 3 days. * Underlying rhythm is sinus with an average rate of 71/Min. * Supraventricular ectopy noted with a burden of 3.6%. Very brief runs noted. * Ventricular ectopy noted with a burden of 1.3%. No significant runs. * No significant pauses or high-grade AV blocks. * No patient markers or diary events. MTDD
== END ==
LOC: HO.CARD 09:55
PROVIDERS: PCP Internal Medicine; Visit Provider Internal Medicine Cardiovascular Disease
DX: I42.9 Cardiomyopathy, unspecified (principal); I48.0 Paroxysmal atrial fibrillation
CPT/HCPCS: 93242; 93308

== ENCOUNTER → 2024-05-25 10:01 | Outpatient (BNV) | payer MEDICARE, SELFPAY | PROVIDERS: PCP Internal Medicine; Visit Provider Internal Medicine Cardiovascular Disease | DX: I47.10 Supraventricular tachycardia, unspecified (principal) | CPT/HCPCS: 93244; 93308; 93321; 93325 ==

== ENCOUNTER 2024-06-29 14:21 | Outpatient (AMB) | payer MEDICARE, SELFPAY ==
--- NOTE | 2024-06-29 14:29 | MHC.OFFVIS ---
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 Allergies sacubitril [From Entresto] Adverse Reaction (Intermediate, Verified 07/02/24 10:53) Palpitations/Afib amiodarone Adverse Reaction (Verified 07/02/24 10:53) Difficulty Breathing Medication List - Last Reconciled 06/29/24 by Elan Puri MD albuterol sulfate 90 mcg/actuation (ProAir HFA) 2 puffs inhalation Q4H PRN albuterol sulfate 2.5 mg (3 mL) inhalation BID 30 days apixaban (Eliquis) 5 mg PO BID 30 days azathioprine 100 mg PO DAILY levalbuterol HCl 1.25 mg (3 mL) inhalation BID 90 days loratadine (Children's Claritin) 5 mg PO DAILY metoprolol tartrate 50 mg PO BID nebulizers As directed valsartan 80 mg (2 x 40 mg) PO BID 90 days HPI Comments Details: Vinicio comes for follow-up. His repeat limited echocardiogram May showed improved LV ejection fraction to 50-55%. His Holter monitor showed preserved sinus rhythm. He said he feels significantly better in sinus rhythm. He has symptoms of exertional shortness of breath has significantly improved and he only uses his respiratory therapy on a p.r.n. basis. He denies any orthopnea, PND, leg edema. Takes all his medications currently including metoprolol and valsartan at current doses. Questioning whether he can come off Eliquis therapy. Denies any prolonged palpitation irregular heartbeat and says his smart watch suggest maintain sinus rhythm. 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 Asthma Allergies Chronic allergic rhinitis Bronchiectasis Surgical History S/P cardiac cath Social History Patient Tobacco Use Status: Former Tobacco user Tobacco use type: Cigarette Cigarette Packs Per Day: 1 Years Smoked: 20 Review of Systems Const Denies chills, Denies fatigue, Denies fever(s), Denies frequent falls, Denies weakness, Denies weight gain and Denies weight loss ENT Denies dizziness Card Denies chest pain, Denies leg edema, Denies lightheadedness, Denies palpitations, Denies dyspnea, Denies dyspnea on exertion, Denies orthopnea and Denies other (loss of consciousness) Resp Denies cough, Denies dyspnea and Denies dyspnea on exertion GI Denies hematochezia and Denies change in stool character Musc Denies abnormal gait, Denies muscle weakness, Denies numbness, Denies radiating pain into limb and Denies tingling Neuro Denies abnormal gait, Denies dizziness, Denies frequent falls, Denies numbness, Denies tingling and Denies weakness Endo Denies fatigue and Denies palpitations Physical Exam Vital Signs: Last Vital Signs Pulse 67 06/29/24 14:31 BP 120/74 06/29/24 14:31 BMI result Body Mass Index 26.4 Const General: cooperative, healthy appearing, comfortable and no acute distress Orientation/consciousness: patient oriented x3 Neck Neck: Yes normal visual inspection and Yes no JVD Resp Effort & Inspection: normal respiratory effort Auscultation: clear to auscultation bilaterally, no crackles, no rales, no rhonchi, no wheezes and diminished lung sounds Cardio Jugular venous distension: no JVD Rate: regular rate Rhythm: regular rhythm Heart sounds: S1 normal heart sound present, S2 normal heart sound present, no murmurs and no rubs Neuro General: patient oriented x3 Extrem General: Yes normal to inspection, No no pedal edema and No calf tenderness Psych Appearance: grossly normal Mental Status: mental status grossly normal Speech and movement: Normal speech and movement present Assessment & Plan Assessment & Plan (1) PAF (paroxysmal atrial fibrillation): Code(s): I48.0 - Paroxysmal atrial fibrillation Category: Medical Plan: Highly symptomatic paroxysmal atrial fibrillation symptoms of heart failure. This has significantly improved with maintenance of rhythm with much improved pulmonary symptoms and requirement for pulmonary treatment as well. Continue rhythm control approach. At this point time will avoid antiarrhythmic drug therapy unless he has recurrent atrial fibrillation has had limitations to antiarrhythmic drug therapy for him. Avoidance of stimulants was discussed. Continue full oral anticoagulation for life, with Eliquis 5 mg b.i.d.. Semi annual renal function test is recommended. Switch to Xopenex (2) Cardiomyopathy: Code(s): I42.9 - Cardiomyopathy, unspecified Category: Medical Qualifiers: Cardiomyopathy type: unspecified Qualified Code(s): I42.9 - Cardiomyopathy, unspecified Plan: Cardiomyopathy with improved LV ejection fraction with rhythm management. Continue neurohormonal modulation with metoprolol and valsartan which is tolerating. No signs or symptoms of heart failure. These were discussed. Daily weight monitoring avoidance salt loading was discussed. No indication for diuretic therapy. Follow-up echocardiogram in 6 months time. Will follow up in the clinic in 6 months time, sooner p.r.n.. Thank you for allowing me to partake in his care Orders: Orders CA echo transthoracic complete 6 Months I42.9 - Cardiomyopathy, unspecified Medications: Refilled apixaban (Eliquis) 5 mg PO BID 30 days 60 tabs 5RF apixaban (Eliquis) 5 mg PO BID 30 days 60 tabs 5RF Coding Level of Care Code Est Pt Level 4 (05502) Complex EM visit Add On G2211 Diagnoses PAF (paroxysmal atrial fibrillation) I48.0 Cardiomyopathy, unspecified type I42.9 Cardiomyopathy type: unspecified
[2024-06-29 14:31] VITALS: BP 120/74; PULSE 67; BMI 26.4
== END 2024-06-29 14:54 | disposition home or self-care (01) ==
PROVIDERS: PCP Internal Medicine; Visit Provider Internal Medicine Cardiovascular Disease
DX: I48.0 Paroxysmal atrial fibrillation (principal); I42.9 Cardiomyopathy, unspecified
CPT/HCPCS: 99214; G2211

== ENCOUNTER → 2024-06-29 14:21 | Outpatient (BNVA) | payer MEDICARE, SELFPAY | PROVIDERS: PCP Internal Medicine; Visit Provider Internal Medicine Cardiovascular Disease | DX: I48.0 Paroxysmal atrial fibrillation (principal); I42.9 Cardiomyopathy, unspecified | CPT/HCPCS: 99212 ==

== ENCOUNTER 2024-07-02 10:23 | Outpatient (AMB) | payer MEDICARE, SELFPAY ==
[2024-07-02 10:50] VITALS: BP 130/52; PULSE 74; O2SAT 96; BMI 26.7
--- NOTE | 2024-07-02 10:50 | A.OFFVIS_ITS ---
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 back in 2017 the patient developed worsening respiratory symptoms after surgery did require 2 bronchoscopy done at [place]. He did have a endobronchial biopsy demonstrating evidence of eosinophilia along with chronic inflammation with Charcot layden crystals suggestive of the diagnosis of asthma. Over the summer the patient worsening respiratory symptoms. finally his symptoms became so significant that he decided to go to the ER back in March 2023 to be assess for the worsening symptoms. The patient states that this is the 1st time that he is actually seat urgent medical care for his respiratory status because he was so concerned. He did undergo a chest x-ray demonstrating his chronic findings primarily with parenchymal disease in the left hemithorax. Evidence of hyperinflation as well. He was treated with doxycycline and also prednisone. Overall the patient is doing better. Right now he is back to his baseline. In the meantime I did review his last CT scan from January 2023 demonstrating the cystic like area on his left hemithorax associated with bronchiectasis and he also has evidence of chronic bronchitis throughout. As far as his blood work his eosinophils were significantly elevated at 900. patient is known to have significant allergies although he has not had allergy testing some time. Base of the bronchiectatic changes need to consider conditions such as allergic bronchopulmonary mycosis. Will go ahead and request blood work in addition to allergy testing. The patient also undergo pulmonary function studies. In view of his bronchiectatic changes the patient does need a nebulizer for both bronchodilation also pulmonary hygiene. The patient also has a flutter valve already. Therefore he will start the nebulized therapy once or twice a day followed by the flutter valve for pulmonary toilet. He will try to provide a sputum both AFB and Gram staining culture. If the patient continues to be symptomatic and we can not provide a sputum then will consider bronchoscopy at that point. 07/04/2023 the patient is here for a pulmonary follow-up visit. Overall he is doing well from a respiratory status. He did have his echocardiogram and it was noted that he was having some SVT in addition to that a decreased ejection fracture. Therefore concern for cardiomyopathy and cardiac arrhythmia. He was referred to Cardiology. Currently going to get a Holter and based on his abnormal echo he is scheduled to undergo a heart catheterization. Additional respiratory status the patient is doing better. He is using the Symbicort. He gets up from cannula. Seems to be helping well. He has significant allergies both with eosinophilia and elevated IgE. Explained to him that because of his significant allergies including mold allergies in the fact that he has now or in SVT that will make it difficult for him to tolerate the beta agonist he may be a great candidate for biologics. At this point however the patient is doing well so we can just let him get his cardiac workup and when he returns in the springtime will consider biologics. We did talk about Dupixent be a good option for her. In addition to that we did check his alpha-1 genotype which was normal, mm. And his PFTs were also reviewed demonstrating any obstructive physiology consistent with his obstructive airway disease. 07/28/2023 the patient is here for sick visit. Apparently he has had worsening shortness of breath. He was evaluated from a cardiac standpoint and had significant atrial fibrillation. He was placed on amiodarone had adverse reaction therefore. He was taken off it. He was placed on Coreg. Unfortunately he does have wheezing on the beta-vamsi effect can indeed worsen the breathing. The patient also had a chest x-ray prior to starting the amiodarone found to have a left lower lobe opacities suggesting pneumonia. He had called the office and will place on doxycycline. His breathing has improved a little but he is still coughing and having some shortness of breath. Also having some wheezing. We did repeat his chest x-ray today demonstrating some slight improvement of the left lower lobe process. He is also scheduled for CT scan sometime in August. The patient will be switched over to Augmentin to see if we can treat him further for a lower respiratory infection. In the meantime will continue with the Coreg for now as it is a cardioprotective med ication and he does have significant cardiac disease. His heart rate continues to be significantly elevated. Unfortunately again could not tolerate the antiarrhythmic agent. 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 At this point we will hold off on any therapy for this and will discuss during his next follow-up after his CT scan. If the patient develops any worsening respiratory symptoms he is to call the office for evaluation. 09/11/2023 the patient is here for a pulmonary follow-up visit. Overall the patient has been doing better. Cardiac monson he did underwent his cardiac catheterization without any significant CAD. He has been monitor closely for the cardiomyopathy though in the atrial fibrillation. He is continued to undergo a repeat echo and Holter monitor. In the meantime he is also scheduled to undergo an in-lab sleep study. Will follow-up with those results. From a respiratory status doing better. The patient has been performing the chest PT. However, he still has a cough productive in nature [id number] severity. The patient did have a CT scan of the chest that was personally reviewed. Does have the cystic bronchiectatic changes primarily the left lung was significant mucus plugging tree-in-bud. If we look at his cultures was positive for and non tuberculosis mycobacterial infection although we do not have the species. View the significant bronchiectasis mucous plugging cough will go ahead and put him on azithromycin 3 times a week. Will have an EKG from Cardiology during his follow-up although I do 1 or cells. 12/30/2023 the patient is here for a pulmonary follow-up visit. Overall he is doing much better from a respiratory status. He denies any significant chest congestion or cough. Continues his Symbicort typically in the morning. He had been using the albuterol or Xopenex twice a day followed by the CPT with flutter valve although he has not been doing that regularly now. The patient has been on the azithromycin 3 times a week for the mycobacterial infection. At this point though he was also having issues with atrial fibrillation where he is having more AFib at this time. He is having episodes of increased tachyarrhythmia as well. He had medication changes without any significant improvement. In addition to that he was referred to electrophysiology and was started on digoxin. Therefore, I did tell him to stop the azithromycin at this time because of the severe interaction with the digoxin that can result in a severe or life-threatening arrhythmia. Therefore he will stop it at this time. He did respond positively to the therapy and I hope that the 3-4 months that he was on it help them overall. We did review his last CT scan was back in August demonstrating a significant bronchiectasis and mucous plugging and pulmonary nodules. Will follow-up in the fall decide went to pursue a repeat CT scan. 07/02/2024 the patient is here for a pulmonary follow-up visit. Overall he is doing very good. His respiratory symptoms have improved dramatically. He stopped using the Symbicort at this time. He has not required any respiratory medications. He also had been taken off the azithromycin because of the cardiac medications. At this point is off the antiarrhythmics and is able to go back on the azithromycin. However, since he is clinically doing well hold off. The patient did have a CT scan back in 09/09/2023 which we personally reviewed demonstrating evidence of bronchiectasis primarily in the left lower lobe with nodular densities. Will go ahead and plan to repeat the CT scan in 09/09/2024 to see if any of the nodules have changed. If there is any concerns of worsening non tuberculosis mycobacterial disease and will talk about going back on antimicrobial therapy. But my suspicion is that clinically is doing well and we can hold off at this time. 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 Asthma Allergies Chronic allergic rhinitis Bronchiectasis Surgical History S/P cardiac cath Social History Patient Tobacco Use Status: Former Tobacco user Tobacco use type: Cigarette Cigarette Packs Per Day: 1 Years Smoked: 20 Review of Systems Const Denies fatigue and Denies fever(s) Eyes Denies change in vision ENT Reports nasal congestion and Reports nasal discharge Card Denies chest pain, Denies palpitations and Reports dyspnea on exertion Resp Denies chest congestion, Reports cough, Reports dyspnea on exertion and Denies wheezing GI Reports no additional complaints Musc Reports no additional complaints Skin/Breast Denies rash Neuro Reports no additional complaints Endo Denies fatigue and Denies palpitations Rob/Lymph Denies lymphadenopathy Aller/Immun Denies wheezing Physical Exam Vital Signs: Last Vital Signs Pulse 74 07/02/24 10:50 BP 130/52 L 07/02/24 10:50 Pulse Ox 96 07/02/24 10:50 Oxygen Delivery Method Room Air 07/02/24 10:50 BMI result Body Mass Index 26.7 Const General: comfortable HEENT Head: Yes normocephalic Neck Neck: Yes supple Chest Chest palpation & inspection: normal inspection of the chest Resp Effort & Inspection: normal respiratory effort Auscultation: no rhonchi, no wheezes and diminished lung sounds Cardio Rate: regular rate Rhythm: regular rhythm Heart sounds: S1 normal heart sound present and S2 normal heart sound present GI Palpation (GI): Soft to palpation Skin General skin exam: no rashes or lesions noted Extrem General: Yes no clubbing, cyanosis or edema Assessment & Plan Assessment & Plan (1) Bronchiectasis: Code(s): J47.9 - Bronchiectasis, uncomplicated Category: Medical Qualifiers: Bronchiectasis type: uncomplicated Qualified Code(s): J47.9 - Bronchiectasis, uncomplicated (2) Chronic allergic rhinitis: Code(s): J30.9 - Allergic rhinitis, unspecified Category: Medical (3) Allergies: Code(s): T78.40XA - Allergy, unspecified, initial encounter Category: Medical Qualifiers: Encounter type: initial encounter Qualified Code(s): T78.40XA - Allergy, unspecified, initial encounter (4) Asthma: Code(s): J45.909 - Unspecified asthma, uncomplicated Category: Medical Qualifiers: Asthma complication type: uncomplicated Asthma persistence: persistent Asthma severity: severe Qualified Code(s): J45.50 - Severe persistent asthma, uncomplicated (5) Congenital cystic disease of lung: Code(s): Q33.0 - Congenital cystic lung Category: Medical (6) Cardiomyopathy: Code(s): I42.9 - Cardiomyopathy, unspecified Category: Medical Qualifiers: Cardiomyopathy type: unspecified Qualified Code(s): I42.9 - Cardiomyopathy, unspecified (7) Nontuberculous mycobacterial disease of lung: Code(s): A31.0 - Pulmonary mycobacterial infection Category: Medical (8) Pulmonary nodules: Code(s): R91.8 - Other nonspecific abnormal finding of lung field Category: Medical Plan stop Azithromycin MWF for NTM xopenex as needed flutter valve for CPT continue symbicort, decrease 1 puff BID as needed consider sweat test in the future Allergy avoidence CT chest 3 months F/U 3-4 months Orders: Orders CT chest wo IV con 3 Months R91.8 - Other nonspecific abnormal finding of lung field Coding Level of Care Code Est Pt Level 4 (44631) Diagnoses Bronchiectasis without complication J47.9 Bronchiectasis type: uncomplicated Chronic allergic rhinitis J30.9 Allergy, initial encounter T78.40XA Encounter type: initial encounter Severe persistent asthma without complication J45.50 Asthma complication type: uncomplicated Asthma persistence: persistent Asthma severity: severe Congenital cystic disease of lung Q33.0 Cardiomyopathy, unspecified type I42.9 Cardiomyopathy type: unspecified Nontuberculous mycobacterial disease of lung A31.0 Pulmonary nodules R91.8 Time Spent (min) 16
== END 2024-07-02 11:17 | disposition home or self-care (01) ==
PROVIDERS: PCP Internal Medicine; Visit Provider Hospitalist
DX: J47.9 Bronchiectasis, uncomplicated (principal); J30.9 Allergic rhinitis, unspecified; T78.40XA Allergy, unspecified, initial encounter; J45.50 Severe persistent asthma, uncomplicated; Q33.0 Congenital cystic lung; I42.9 Cardiomyopathy, unspecified; A31.0 Pulmonary mycobacterial infection; R91.8 Other nonspecific abnormal finding of lung field
CPT/HCPCS: 99214

== ENCOUNTER → 2024-07-02 10:23 | Outpatient (BNVA) | payer MEDICARE, SELFPAY | PROVIDERS: PCP Internal Medicine; Visit Provider Hospitalist | DX: J47.9 Bronchiectasis, uncomplicated (principal); J45.50 Severe persistent asthma, uncomplicated; J30.9 Allergic rhinitis, unspecified; Q33.0 Congenital cystic lung; I42.9 Cardiomyopathy, unspecified; R91.8 Other nonspecific abnormal finding of lung field; A31.0 Pulmonary mycobacterial infection; T78.40XD Allergy, unspecified, subsequent encounter | CPT/HCPCS: 99212 ==

== ENCOUNTER 2024-10-05 10:47 | Outpatient (REF) | payer MEDICARE, SELFPAY ==
--- NOTE | ~2024-10-05 | CT_ITS ---
CLINICAL HISTORY: R91.8 - Other nonspecific abnormal finding of lung field CT Chest WO Contrast COMPARISON: CT/MI/SR - CT CHEST WO IV CON - 08/22/23 14:07 EST FINDINGS: No pulmonary consolidation or mass. Mild scarring at the lung apices. Mild cylindrical bilateral lower lobe bronchiectasis. Mild bilateral bronchial wall thickening. Left lower lobe pulmonary fibrosis versus cystic bronchiectasis. Previously seen left lower lobe infiltrate has cleared. Mild atelectasis. No pleural effusion. No pneumothorax. No cardiomegaly. No pericardial effusion. No pathologically enlarged lymph nodes. No thoracic aortic aneurysm. Unchanged ectatic central pulmonary arteries. No acute fracture. Degenerative changes in the spine and shoulders. Chronic appearing left 8th rib deformity. Hepatic cyst. Status post cholecystectomy. IMPRESSION: Possible bronchitis. Nonemergent/incidental findings above. This document has been electronically signed by: Ming Mancini MD on 10/06/2024 21:36:00
--- OUTSIDE RECORDS SUMMARY | 2024-10-05 12:49 | XMS_ITS | Clinical Summary ---
Author Organization [facility] Address [address] [place] [address] Phone Care Team Providers Care Double End Tenoner Setter Name Role Phone Neva Raygoza MD Primary Care Provider Social History Tobacco Use Types Packs/Day Years Used Date Smoking Tobacco: Never Assessed Sex and Gender Information Value Date Recorded Sex Assigned at Not on file Legal Sex Male 10:56 AM EST Gender Identity Not on file Sexual Orientation Not on file Plan of Treatment Upcoming Encounters Date Type Department Care Team (Late st Contact Info) Description 10/11/2024 10:00 AM EDT Consult Orthopedics - [address] [address] Christoph Pennington PA [address] [place] [address] Health Maintenance Due Date Last Done Comments DTaP,Tdap,and Td Vaccines (1 - Tdap) 1964 Pneumococcal Vaccine: 50+ Ye ars (1 of 1 - PCV) 1994 Zoster Vaccines (1 of 2) 1994 RSV Immunization Patients 60 + Years Old (1 - 1-dose 75+ series) 2019 COVID-19 Vaccine (1 - 2023-2 5 season) 2024 Influenza Vaccine (#1) 2024 Cholesterol Screening (Lipid Panel) 09/28/2024 Depression Screening 09/28/2024 Falls Risk Assessment 09/28/2024 Medicare Annual Wellness Visit 09/28/2024 Social Influencers of Health Screening 09/28/2024 HIB Vaccines Aged Out No longer eligi ble based on patient's age to complete this topic HPV Vaccines Aged Out No longer eligi ble based on patient's age to complete this topic Hepatitis A Vaccines Aged Out No long er eligible based on patient's age to complete this topic Hepatitis B Vaccines Aged Out No long er eligible based on patient's age to complete this topic IPV Vaccines Aged Out No longer eligi ble based on patient's age to complete this topic MMR Vaccines Aged Out No longer eligi ble based on patient's age to complete this topic Meningococcal ACWY Vaccine Aged Out N o longer eligible based on patient's age to complete this topic Meningococcal B Vacine Aged Out No lo nger eligible based on patient's age to complete this topic RSV Immunization Patients Un ania 20 months Aged Out No longer eligible b ased on patient's age to complete this topic Varicella Vaccines Aged Out No longer eligible based on patient's age to complete this topic Insurance [employer] Care Teams Double End Tenoner Setter Relationship Specialty Start Date End Date Neva Raygoza MD [address] [place] [address] PCP - General Internal Medicine 09/28/24
--- OUTSIDE RECORDS SUMMARY | 2024-10-05 12:49 | XMS_ITS | Clinical Summary ---
Author Organization [facility] Address [address] [place] [address] Phone Care Team Providers Care Carpenter General Name Role Phone Neva Raygoza MD Primary Care Provider Encounters Date Type Department Care Team Description 08/25/2024 Telephone [facility] [address] [place] [address] Kaushal Fonseca MA 08/05/2024 Documentation Only [facility] [address] [place] [address] Kaushal Fonseca MA from Last 3 Months Social History Tobacco Use Types Packs/Day Years Used Date Smoking Tobacco: Never Assessed Sex and Gender Information Value Date Recorded Sex Assigned at Not on file Legal Sex Male 11:37 AM EST Gender Identity Not on file Sexual Orientation Not on file Plan of Treatment Health Maintenance Due Date Last Done Comments Pneumococcal Vaccine: 65+ Ye ars (1 of 2 - PCV) 1950 Influenza Vaccine (#1) 2024 Hepatitis B Vaccine Aged Out No longe r eligible based on patient's age to complete this topic Insurance [facility] [id number] [employer] Care Teams Carpenter General Relationship Specialty Start Date End Date Neva Raygoza MD [address] [place] [id number] PCP - General Internal Medicine 08/05/24
--- OUTSIDE RECORDS SUMMARY | 2024-10-05 12:49 | XMS_ITS | Encounter Summary ---
Author Organization [facility] Address [address] [place] [address] Phone Care Team Providers Care Staff Analyst Name Role Phone Neva Raygoza MD Primary Care Provider [phone] Encounter Details Date Type Department Care Team (Late st Contact Info) Description 08/05/2024 Documentation Only [facility] [place], [address] [place] [address] [place], [place] [address] [place] [address] Social History Tobacco Use Types Packs/Day Years Used Date Smoking Tobacco: Never Assessed Sex and Gender Information Value Date Recorded Sex Assigned at Not on file Legal Sex Male 11:37 AM EST Gender Identity Not on file Sexual Orientation Not on file documented as of this encounter Plan of Treatment Not on file documented as of this encounter Visit Diagnoses Not on filedocumented in this encounter Care Teams Staff Analyst Relationship Specialty Start Date End Date Neva Raygoza MD [address] [place] [address] PCP - General Internal Medicine 08/05/24 documented as of this encounter
== END 2024-10-05 10:48 | disposition home or self-care (01) ==
LOC: HO.CT 10:47
PROVIDERS: PCP Internal Medicine; Visit Provider Hospitalist
DX: R91.8 Other nonspecific abnormal finding of lung field (principal)
CPT/HCPCS: 71250

== ENCOUNTER → 2024-10-05 10:49 | Outpatient (BNV) | payer MEDICARE, SELFPAY | PROVIDERS: PCP Internal Medicine; Visit Provider Radiology Diagnostic Radiology | DX: R91.8 Other nonspecific abnormal finding of lung field (principal) | CPT/HCPCS: 71250 ==

== ENCOUNTER 2024-11-10 10:55 | Outpatient (AMB) | payer MEDICARE, SELFPAY ==
[2024-11-10 10:57] VITALS: BP 140/56; PULSE 63; O2SAT 95; BMI 26.9
--- NOTE | 2024-11-10 10:57 | A.OFFVIS_ITS ---
Vital Signs 11/10/24 10:57 Height 5 ft 9 in Weight 181 lb 14.102 oz BMI 26.9 BP 140/56 H Blood Pressure Location Rt brachial Position Sitting Pulse 63 Pulse Source Pulse Oximeter Pulse Oximetry (%) 95 Oxygen Delivery Method Room Air Intake Visit Reasons: Bronchiectasis Safety Instruction Police Officer Required: No Accompanied by: Self / Same As Patient Allergies sacubitril [From Entresto] Adverse Reaction (Intermediate, Verified 11/10/24 11:01) Palpitations/Afib amiodarone Adverse Reaction (Verified 11/10/24 11:01) Difficulty Breathing HPI Comments Details: The patient is a 79-year-old gentleman with a 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 back in 2017 the patient developed worsening respiratory symptoms after surgery did require 2 bronchoscopy done at [facility]. He did have a endobronchial biopsy demonstrating evidence of eosinophilia along with chronic inflammation with Charcot layden crystals suggestive of the diagnosis of asthma. Over the summer the patient worsening respiratory symptoms. finally his symptoms became so significant that he decided to go to the ER back in March 2023 to be assess for the worsening symptoms. The patient states that this is the 1st time that he is actually seat urgent medical care for his respiratory status because he was so concerned. He did undergo a chest x-ray demonstrating his chronic findings primarily with parenchymal disease in the left hemithorax. Evidence of hyperinflation as well. He was treated with doxycycline and also prednisone. Overall the patient is doing better. Right now he is back to his baseline. In the meantime I did review his last CT scan from January 2023 demonstrating the cystic like area on his left hemithorax associated with bronchiectasis and he also has evidence of chronic bronchitis throughout. As far as his blood work his eosinophils were significantly elevated at 900. patient is known to have significant allergies although he has not had allergy testing some time. Base of the bronchiectatic changes need to consider conditions such as allergic bronchopulmonary mycosis. Will go ahead and request blood work in addition to allergy testing. The patient also undergo pulmonary function studies. In view of his bronchiectatic changes the patient does need a nebulizer for both bronchodilation also pulmonary hygiene. The patient also has a flutter valve already. Therefore he will start the nebulized therapy once or twice a day followed by the flutter valve for pulmonary toilet. He will try to provide a sputum both AFB and Gram staining culture. If the patient continues to be symptomatic and we can not provide a sputum then will consider bronchoscopy at that point. 07/04/2023 the patient is here for a pulmonary follow-up visit. Overall he is doing well from a respiratory status. He did have his echocardiogram and it was noted that he was having some SVT in addition to that a decreased ejection fracture. Therefore concern for cardiomyopathy and cardiac arrhythmia. He was referred to Cardiology. Currently going to get a Holter and based on his abnormal echo he is scheduled to undergo a heart catheterization. Additional respiratory status the patient is doing better. He is using the Symbicort. He gets up from cannula. Seems to be helping well. He has significant allergies both with eosinophilia and elevated IgE. Explained to him that because of his significant allergies including mold allergies in the fact that he has now or in SVT that will make it difficult for him to tolerate the beta agonist he may be a great candidate for biologics. At this point however the patient is doing well so we can just let him get his cardiac workup and when he returns in the springtime will consider biologics. We did talk about Dupixent be a good option for her. In addition to that we did check his alpha-1 genotype which was normal, mm. And his PFTs were also reviewed demonstrating any obstructive physiology consistent with his obstructive airway disease. 07/28/2023 the patient is here for sick visit. Apparently he has had worsening shortness of breath. He was evaluated from a cardiac standpoint and had significant atrial fibrillation. He was placed on amiodarone had adverse reaction therefore. He was taken off it. He was placed on Coreg. Unfortunately he does have wheezing on the beta-vamsi effect can indeed worsen the breathing. The patient also had a chest x-ray prior to starting the amiodarone found to have a left lower lobe opacities suggesting pneumonia. He had called the office and will place on doxycycline. His breathing has improved a little but he is still coughing and having some shortness of breath. Also having some wheezing. We did repeat his chest x-ray today demonstrating some slight improvement of the left lower lobe process. He is also scheduled for CT scan sometime in August. The patient will be switched over to Augmentin to see if we can treat him further for a lower respiratory infection. In the meantime will continue with the Coreg for now as it is a cardioprotective medication and he does have significant cardiac disease. His heart rate continues to be significantly elevated. Unfortunately again could not tolerate the antiarrhythmic agent. 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 At this point we will hold off on any therapy for this and will discuss during his next follow-up after his CT scan. If the patient develops any worsening respiratory symptoms he is to call the office for evaluation. 09/11/2023 the patient is here for a pulmonary follow-up visit. Overall the patient has been doing better. Cardiac monson he did underwent his cardiac catheterization without any significant CAD. He has been monitor closely for the cardiomyopathy though in the atrial fibrillation. He is continued to undergo a repeat echo and Holter monitor. In the meantime he is also scheduled to undergo an in-lab sleep study. Will follow-up with those results. From a respiratory status doing better. The patient has been performing the chest PT. However, he still has a cough productive in nature [id number] severity. The patient did have a CT scan of the chest that was personally reviewed. Does have the cystic bronchiectatic changes primarily the left lung was significant mucus plugging tree-in-bud. If we look at his cultures was positive for and non tuberculosis mycobacterial infection although we do not have the species. View the significant bronchiectasis mucous plugging cough will go ahead and put him on azithromycin 3 times a week. Will have an EKG from Cardiology during his follow-up although I do 1 or cells. 12/30/2023 the patient is here for a pulmonary follow-up visit. Overall he is doing much better from a respiratory status. He denies any significant chest congestion or cough. Continues his Symbicort typically in the morning. He had been using the albuterol or Xopenex twice a day followed by the CPT with flutter valve although he has not been doing that regularly now. The patient has been on the azithromycin 3 times a week for the mycobacterial infection. At this point though he was also having issues with atrial fibrillation where he is having more AFib at this time. He is having episodes of increased tachyarrhythmia as well. He had medication changes without any significant improvement. In addition to that he was referred to electrophysiology and was started on digoxin. Therefore, I did tell him to stop the azithromycin at this time because of the severe interaction with the digoxin that can result in a severe or life-threatening arrhythmia. Therefore he will stop it at this time. He did respond positively to the therapy and I hope that the 3-4 months that he was on it help them overall. We did review his last CT scan was back in August demonstrating a significant bronchiectasis and mucous plugging and pulmonary nodules. Will follow-up in the fall decide went to pursue a repeat CT scan. 07/02/2024 the patient is here for a pulmonary follow-up visit. Overall he is doing very good. His respiratory symptoms have improved dramatically. He stopped using the Symbicort at this time. He has not required any respiratory medications. He also had been taken off the azithromycin because of the cardiac medications. At this point is off the antiarrhythmics and is able to go back on the azithromycin. However, since he is clinically doing well hold off. The patient did have a CT scan back in 09/09/2023 which we personally reviewed demonstrating evidence of bronchiectasis primarily in the left lower lobe with nodular densities. Will go ahead and plan to repeat the CT scan in 09/09/2024 to see if any of the nodules have changed. If there is any concerns of worsening non tuberculosis mycobacterial disease and will talk about going back on antimicrobial therapy. But my suspicion is that clinically is doing well and we can hold off at this time. 11/10/2024 the patient is here for pulmonary follow-up visit. Overall he is doing well from respiratory status. Denies any chest congestion or wheezing or chest tightness or mucus production. He feels a lot better after his cardiac medications with dealt with. He has been off the azithromycin and doing well. We did review his last CT scan of the chest that he had back in September 2024 demonstrating the bronchiectatic changes. Everything looks fairly stable. At this point he still holding off on antimycobacterial therapies since the patient is doing well. If he develops any chest congestion mucus production he can always provide us with a sputum sample and I did provide him with specimen cups. Will plan to follow-up in a year's time will request a repeat CT scan for that time. If he develops any worsening symptoms prior to that he will call for an earlier assessment. 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 Asthma Allergies Chronic allergic rhinitis Bronchiectasis Surgical History S/P cardiac cath Social History Patient Tobacco Use Status: Former Tobacco user Tobacco use type: Cigarette Cigarette Packs Per Day: 1 Years Smoked: 20 Review of Systems Const Denies chills, Denies fatigue, Denies fever(s), Denies weight gain and Denies weight loss Eyes Denies change in vision ENT Denies dizziness Card Denies chest pain, Denies leg edema, Denies lightheadedness, Denies palpitations, Reports dyspnea on exertion, Denies orthopnea and Denies other Resp Denies cough, Reports dyspnea on exertion and Denies wheezing GI Denies hematochezia and Denies change in stool character Musc Denies abnormal gait, Denies muscle weakness, Denies numbness, Denies radiating pain into limb and Denies tingling Skin/Breast Denies rash Neuro Denies abnormal gait, Denies dizziness, Denies numbness and Denies tingling Endo Denies fatigue and Denies palpitations Rob/Lymph Denies lymphadenopathy Aller/Immun Denies wheezing Physical Exam Vital Signs: Last Vital Signs Pulse 63 11/10/24 10:57 BP 140/56 H 11/10/24 10:57 Pulse Ox 95 11/10/24 10:57 Oxygen Delivery Method Room Air 11/10/24 10:57 BMI result Body Mass Index 26.9 Const General: comfortable HEENT Head: Yes normocephalic Neck Neck: Yes supple Chest Chest palpation & inspection: normal inspection of the chest Resp Effort & Inspection: normal respiratory effort Auscultation: no rhonchi, no wheezes and diminished lung sounds Cardio Rate: regular rate Rhythm: regular rhythm Heart sounds: S1 normal heart sound present and S2 normal heart sound present GI Palpation (GI): Soft to palpation Skin General skin exam: no rashes or lesions noted Extrem General: Yes no clubbing, cyanosis or edema Assessment & Plan Assessment & Plan (1) Bronchiectasis: Code(s): J47.9 - Bronchiectasis, uncomplicated Category: Medical Qualifiers: Bronchiectasis type: uncomplicated Qualified Code(s): J47.9 - Bronchiectasis, uncomplicated (2) Chronic allergic rhinitis: Code(s): J30.9 - Allergic rhinitis, unspecified Category: Medical (3) Allergies: Code(s): T78.40XA - Allergy, unspecified, initial encounter Category: Medical Qualifiers: Encounter type: initial encounter Qualified Code(s): T78.40XA - Allergy, unspecified, initial encounter (4) Asthma: Code(s): J45.909 - Unspecified asthma, uncomplicated Category: Medical Qualifiers: Asthma complication type: uncomplicated Asthma persistence: persistent Asthma severity: severe Qualified Code(s): J45.50 - Severe persistent asthma, uncomplicated (5) Congenital cystic disease of lung: Code(s): Q33.0 - Congenital cystic lung Category: Medical (6) Cardiomyopathy: Code(s): I42.9 - Cardiomyopathy, unspecified Category: Medical Qualifiers: Cardiomyopathy type: unspecified Qualified Code(s): I42.9 - Cardiomyopathy, unspecified (7) Nontuberculous mycobacterial disease of lung: Code(s): A31.0 - Pulmonary mycobacterial infection Category: Medical (8) Pulmonary nodules: Code(s): R91.8 - Other nonspecific abnormal finding of lung field Category: Medical Plan stop Azithromycin MWF for NTM xopenex as needed flutter valve for CPT continue symbicort, decrease 1 puff BID as needed Allergy avoidence CT chest 12 months Sputum cx if develops worsening congestion F/U 12 months Orders: Orders Acid-fast Culture + Smear Today R91.1 - Solitary pulmonary nodule Sputum Cult + Gram stain Today R91.1 - Solitary pulmonary nodule CT chest wo IV con 1 Year R91.8 - Other nonspecific abnormal finding of lung field Coding Level of Care Code Est Pt Level 4 (47283) Complex EM visit Add On G2211 Diagnoses Bronchiectasis without complication J47.9 Bronchiectasis type: uncomplicated Chronic allergic rhinitis J30.9 Allergy, initial encounter T78.40XA Encounter type: initial encounter Severe persistent asthma without complication J45.50 Asthma complication type: uncomplicated Asthma persistence: persistent Asthma severity: severe Congenital cystic disease of lung Q33.0 Cardiomyopathy, unspecified type I42.9 Cardiomyopathy type: unspecified Nontuberculous mycobacterial disease of lung A31.0 Pulmonary nodules R91.8 Time Spent (min) 17
--- OUTSIDE RECORDS SUMMARY | 2024-11-10 13:07 | XMS_ITS | Clinical Summary ---
Author Organization [address] [facility] Address [address] [place] [address] Phone Care Team Providers Care Clay Processing Labourer Name Role Phone Neva Raygoza MD Primary Care Provider Allergies No known active allergies Medications albuterol HFA (PROAIR HFA ; PROVENTIL HFA ; VENTOLIN HFA) 90 mcg/actuation inhaler Inhale 2 puffs by mouth every 4 (four) hours if needed. for wheezing 5 Active Eliquis 5 mg tablet As directed 5 Active azaTHIOprine (IMURAN) 50 mg tablet Take 2 tablets (100 mg total) by mouth 1 (one) time each day. 5 Active carvediloL (COREG) 3.125 mg tablet TAKE 1 TABLET BY MOUTH 2 TIMES A DAY FOR 90 DAYS MUST ADMINISTER WITH A MEAL/FOOD 4 Active metoprolol tartrate (LOPRESSOR) 50 mg tablet Take 1 tablet (50 mg total) by mouth 2 (two) times a day. 5 Active pantoprazole (PROTONIX) 40 mg EC tablet Take 1 tablet (40 mg total) by mouth 1 (one) time each day. 4 Active valsartan (DIOVAN) 40 mg tablet TAKE 2 TABLETS BY MOUTH TWICE A DAY X 90DAYS 5 Active ketoconazole (NIZORAL) 2 % shampoo PLEASE SEE ATTACHED FOR DETAILED DIRECTIONS 4 Active doxycycline (MONODOX) 100 mg capsule PLEASE SEE ATTACHED FOR DETAILED DIRECTIONS 4 Active digoxin (LANOXIN) 125 mcg (0.125 mg) tablet Take 1 tablet (125 mcg total) by mouth 1 (one) time each day. Active loratadine (CLARITIN) 5 mg tablet Take 1 split tablet (5 mg total) by mouth 1 (one) time each day. Active Active Problems No known active problems Encounters Date Type Department Care Team Description 10/11/2024 10:00 AM EDT Consult Orthopedics - [place] [address], [place] [phone] Christoph Pennington PA Primary osteoarthritis of left knee (Primary Dx); Left knee pain; Tendinitis of right quadriceps tendon 10/11/2024 9:30 AM EDT - 10/11/2024 11:59 PM EDT Hospital Encounter XRAY - [place] [address], [place] [phone] Left knee pain, unspecified chronicity Discharge Disposition: Home or Self Care from Last 3 Months Social History Tobacco Use Types Packs/Day Years Used Date Smoking Tobacco: Former Cigarettes Smokeless Tobacco: Never Tobacco Cessation:Counseling Given: Not Answered Comments:Quit over 30 years ago Alcohol Use Standard Drinks/Week Comments Yes 0 (1 standard drink = 0.6 oz pur e alcohol) Occassional Beer Sex and Gender Information Value Date Recorded Sex Assigned at Not on file Legal Sex Male 10:56 AM EST Gender Identity Not on file Sexual Orientation Not on file Obstetrics History Last Filed Vital Signs Vital Sign Reading Time Taken Comments Blood Pressure - - Pulse - - Temperature - - Respiratory Rate 16 10/11/2024 10:08 AM EDT Oxygen Saturation - - Inhaled Oxygen Concentration - - Weight 83.9 kg (185 lb) 10/11/2024 10:08 AM EDT Height 172.7 cm (5' 8 ) 10/11/2024 10:08 AM EDT Body Mass Index 28.13 10/11/2024 10:08 AM EDT Plan of Treatment Health Maintenance Due Date Last Done Comments DTaP,Tdap,and Td Vaccines (1 - Tdap) 1964 Zoster Vaccines (1 of 2) 1964 Cholesterol Screening (Lipid Panel) 09/28/2024 Depression Screening 09/28/2024 Falls Risk Assessment 09/28/2024 Medicare Annual Wellness Visit 09/28/2024 Social Influencers of Health Screening 09/28/2024 COVID-19 Vaccine (7 - Pfizer risk season) 2024 06/09/2024, 05/05/2023, 10/19/2021, Additional history exists Pneumococcal Vaccine: 50+ Years Completed 10/28/2022 RSV Immunization Adult Patients Completed 04/05/2023 Influenza Vaccine Completed 05/05/2024, , 04/05/2023, Additional history exists HIB Vaccines Aged Out No longer eligi [...] age to complete this topic Meningococcal B Vaccine Aged Out No l onger eligible based on patient's age to complete this topic RSV Immunization Patients Under 20 months Aged Out No longer eligible based on patient's age to complete this topic Varicella Vaccines Aged Out No longer eligible based on patient's age to complete this topic Procedures Procedure Name Priority Date/Time Associated Diagnosis Comments AZ ARTHROCENTESIS/ASP IRATION/INJECTION MAJOR JOINT/BURSA W/O U/S GUIDANCE Routine 10/11/2024 10:00 AM EDT Primary osteoarthritis of left knee XR KNEE 4+ VIEWS LEFT Routine 10/11/2024 9:47 AM EDT Left knee pain, unspecified chronicity from Last 3 Months Results * AZ ARTHROCENTESIS/ASPIRATION/INJECTION MAJOR JOINT/BURSA W/O U/S GUIDANCE (10/11/2024 10:00 AM EDT) Narrative Vinny Carter MD - 10/11/2024 10:00 AM EDT OPAL Baker ? 10/11/2024 10:30 AM L Inj/Asp: L knee Indications: pain Details: 22 G needle, anterolateral approach Medications: 4 mL lidocaine 1 %; 80 mg methylPREDNISolone acetate 80 mg/mL Outcome: tolerated well, no immediate complications Informed Consent: ??Site: ??Knee ??Laterality: ??Left ??Relevant images/test results available and reviewed: yes ?Health status cleared: ??Yes ??Procedure/treatment, purpose, treatment alternatives, risks/potential complications and benefits explained: yes ?Risk/complications/benefits details: ??Risks include but are not limited to: The treatment may not accomplish the desired results. ??Additionally bleeding, infection, damage to tendon, nerve, cartilage, muscle; thinning or lightening of the skin in the area of injection; flushing or redness of the face, elevated blood pressure or blood sugar, allergic reaction, rash, increased pain Benefits include relief of inflammation and pain ??Patient questions answered: yes ?Patient agrees, verbalizes understanding, and wants to proceed: yes ?Consent given by: ??Patient ??Informed consent discussion completed by Physician/ADAN with patient: ?? Verbal ??Pre-procedure timeout performed: yes ?? us Christoph JOSEPH IN CLINIC/BEDSIDE ORDERABLES Fin al Result * XR Knee 4+ Views Left (10/11/2024 9:47 AM EDT) Anatomical Region Laterality Modality Lower Extremities, Knee Left [facility] Imaging 10/11/2024 4:30 PM EDT Narrative 10/11/2024 4:31 PM EDT Left knee, 4 views. History pain. There is no evidence of fractures, dislocations or joint effusion. There is narrowing of the joint space medially. There are osteophytes arising from the anterior tibial spinous processes. CONCLUSIONS: Degenerative changes as detailed. No fractures, dislocations or effusion. -------- FINAL REPORT -------- Dictated By: Harini Wisdom Dictated Date: 10/11/2024 16:30 ET Assigned Physician: Harini Wisdom Reviewed and Electronically Signed By: Harini Wisdom Signed Date: 10/11/2024 16:31 ET Workstation ID: [id number] Transcribed By: Self Edit Transcribed Date: 10/11/2024 16:30 ET Procedure Note Harini Wisdom MD - 10/11/2024 Left knee, 4 views. History pain. There is no evidence of fractures, dislocations or joint effusion. Thereis narrowing of the joint space medially. There are osteophytes arisingfrom the anterior tibial spinous processes. CONCLUSIONS: Degenerative changes as detailed. No fractures, dislocationsor effusion. -------- FINAL REPORT -------- Dictated By: Harini Wisdom Dictated Date: 10/11/2024 16:30 ET Assigned Physician: Harini Wisdom Reviewed and Electronically Signed By: Harini Wisdom Signed Date: 10/11/2024 16:31 ET Workstation ID: [id number] Transcribed By: Self Edit Transcribed Date: 10/11/2024 16:30 ET Christoph JOSEPH IMG XR PROCEDURES Final Result from Last 3 Months Insurance [employer] Care Teams Clay Processing Labourer Relationship Specialty Start Date End Date Neva Raygoza MD [address] [place] [address] PCP - General Internal Medicine 09/28/24
--- OUTSIDE RECORDS SUMMARY | 2024-11-10 13:07 | XMS_ITS | Clinical Summary ---
Author Organization [facility] Address [address] [place] [address] Phone Care Team Providers Care Property And Supply Officer Name Role Phone Neva Raygoza MD Primary Care Provider Encounters Date Type Department Care Team Description 08/25/2024 Telephone [facility] [address] [place] [phone] Kaushal Fonseca [place] from Last 3 Months Social History Tobacco Use Types Packs/Day Years Used Date Smoking Tobacco: Never Assessed Sex and Gender Information Value Date Recorded Sex Assigned at Not on file Legal Sex Male 11:37 AM EST Gender Identity Not on file Sexual Orientation Not on file Plan of Treatment Health Maintenance Due Date Last Done Comments Pneumococcal Vaccine: 50+ Ye ars (1 of 2 - PCV) 1964 Influenza Vaccine (Season Ended) 2025 Hepatitis B Vaccine Aged Out No longe r eligible based on patient's age to complete this topic Insurance [employer] Care Teams Property And Supply Officer Relationship Specialty Start Date End Date Neva Raygoza MD [address] [place] [address] PCP - General Internal Medicine 08/05/24
--- OUTSIDE RECORDS SUMMARY | 2024-11-10 13:07 | XMS_ITS | Encounter Summary ---
Author Organization [facility] Address [address] [place] [address] Phone Care Team Providers Care Wind Development Director Name Role Phone Neva Raygoza MD Primary Care Provider [phone] Encounter Details Date Type Department Care Team (Late st Contact Info) Description 08/05/2024 Documentation Only [facility] [place], [address] [place] [address] [place] [address] [place] [address] Social History Tobacco Use Types [...] on filedocumented in this encounter Care Teams Wind Development Director Relationship Specialty Start Date End Date Neva Raygoza MD [address] [place] [address] PCP - General Internal Medicine 08/05/24 documented as of this encounter
== END 2024-11-10 11:14 | disposition home or self-care (01) ==
LOC: HO.HPS 10:55
PROVIDERS: PCP Internal Medicine; Visit Provider Hospitalist
DX: J47.9 Bronchiectasis, uncomplicated (principal); J30.9 Allergic rhinitis, unspecified; T78.40XA Allergy, unspecified, initial encounter; J45.50 Severe persistent asthma, uncomplicated; Q33.0 Congenital cystic lung; I42.9 Cardiomyopathy, unspecified; A31.0 Pulmonary mycobacterial infection; R91.8 Other nonspecific abnormal finding of lung field
CPT/HCPCS: 99214; G2211

== ENCOUNTER → 2024-11-10 10:55 | Outpatient (BNVA) | payer MEDICARE, SELFPAY | PROVIDERS: PCP Internal Medicine; Visit Provider Hospitalist | DX: J47.9 Bronchiectasis, uncomplicated (principal); J45.50 Severe persistent asthma, uncomplicated; J30.9 Allergic rhinitis, unspecified; R91.8 Other nonspecific abnormal finding of lung field; T78.40XA Allergy, unspecified, initial encounter; Q33.0 Congenital cystic lung; I42.9 Cardiomyopathy, unspecified; A31.0 Pulmonary mycobacterial infection | CPT/HCPCS: 99212 ==

== ENCOUNTER → 2024-12-24 10:42 | Outpatient (REF) | payer MEDICARE, SELFPAY ==
--- NOTE | 2024-12-24 10:46 | CA_ITS ---
Transthoracic Echocardiogram Patient (Last, First, Middle): Vinicio Shahid, Gender: Male Date of : 1945 Age: 79 Procedure Date: 12/24/2024 Procedure Type: Transthoracic Echocardiogram Location: OP Height: 172.72 cm Weight: 80.74 kg BSA: 1.95 m2 Heart Rate: bpm BP: 114 / 70 mmHg Manager Loss Prevention: TO Referring MD: Elan Puri MD Symptoms: I42.9 - Cardiomyopathy, unspecified Study Quality: Adequate ECG Rhythm: Sinus Conclusions: - The left ventricular systolic function is mildly decreased. The calculated ejection fraction is 51% by biplane method. - Evidence suggests grade II (moderate) diastolic dysfunction. - No obvious valvular pathology seen on this study. - There is mild dilatation of the ascending aorta measuring 4.00 cm. Findings Left Ventricle Normal left ventricular cavity size. There is normal left ventricular wall thickness. The left ventricular systolic function is mildly decreased. The calculated ejection fraction is 51% by biplane method. There is no evidence of regional wall motion abnormalities. Evidence suggests grade II (moderate) diastolic dysfunction. Right Ventricle Normal right ventricular cavity size. There is low normal right ventricular systolic function. Atria The left atrium is moderately dilated. The right atrium is normal in size. Aortic Valve There is a normal trileaflet aortic valve. There is no aortic valve stenosis. There is mild to moderate aortic valve regurgitation. Mitral Valve The mitral valve appears normal. There is mild mitral valve regurgitation. There is no mitral valve stenosis. Pulmonic Valve There is trace pulmonic valve regurgitation. Tricuspid Valve There is mild tricuspid valve regurgitation. There is no evidence of pulmonary hypertension. Great Vessels The sinuses of valsalva is normal in size. There is mild dilatation of the ascending aorta measuring 4.00 cm. Venous The inferior vena cava is mildly dilated and collapses greater than 50% with inspiration. Pericardium/Pleural There is no evidence of pericardial effusion. Prior Study Comparison No significant change compared to prior study dated: 05/25/2024. Recommendations, Care & Conclusions No obvious valvular pathology seen on this study. Measurements 2D Linear Measurements IVSd: 0.96 0.6-0.9/0.6-1.0 cm LVIDd: 5.97 3.9-5.3/4.2-5.9 cm LVIDd Index: 3.06 2.4-3.2/2.2-3.1 cm/m2 LVIDs: 3.95 2.0-3.6 cm LVPWd: 0.92 0.7-1.1 cm LA Diam: 4.40 2.7-3.8/3.0-4.0 cm LAIDs Index: 2.26 1.5-2.3 cm/m2 LV Mass: 281.41 67-162/88-224 g LV Mass Index: 144.32 43-95/49-115 g/m2 LVOT Diam: 2.50 3.0+(-)1.3 cm 2D Systolic Function EF 4C: 46.30 >55% EF 2C: 51.40 >55% EF BiP: 50.80 >55% Mitral Valve MV Pk E: 0.78 MV PK A: 0.60 MV Decel Time: 201.00 E/A: 1.30 E'Lateral: 6.20 E'Medial: 4.57 E/E' Med: 17.10 E/E' Lat: 12.60 PHT: 59.00 MVA PHT: 3.73 Decel [place]: 3.89 Aortic Valve AoV Pk Aston: 1.26 AoV Mn Atson: 0.88 AoV VTI: 0.30 AoV Pk Grad: 6.00 Aov Mn Grad: 4.00 ARUN Cont.VTI: 4.30 AI Pk Aston: 3.63 AI [place]: 2.77 LVOT LVOT Pk Aston: 1.12 LVOT Mn Aston: 0.69 LVOT VTI: 0.26 LVOT Pk Grad: 5.00 LVOT Mn Grad: 2.00 LVOT Diam: 2.50 LVOT Area: 4.91 Diastolic Function MV Pk E: 0.78 MV Pk A: 0.60 E/A: 1.30 E'Medial: 4.57 E/E' Med: 17.10 E' Laterial: 6.20 E/E' Lat: 12.60 Right Ventricle TAPSE (mm): 24.30 TVS' Aston: 10.00 Tricuspid Valve TR Pk Aston: 2.40 TR Pk Grad: 23.00 RA Press: 8.00 RVSP: 31.00 Great Vessels Aorta Sinus of Valsalva: 3.64 2.0-3.5 cm Ao Asc: 4.00 2.1-3.4 cm Updated in Other Vendor System with Status of Final Jaison Manzo MD electronically signed on 12/25/2024 1:14:38 PM with status of Final
--- OUTSIDE RECORDS SUMMARY | 2024-12-24 11:31 | XMS_ITS | Encounter Summary ---
Author Organization [facility] Address [address] [place] [address] Phone Care Team Providers Care Sound Designer Name Role Phone Neva Raygoza MD Primary Care Provider Encounter Details Date Type Department Care Team (Late st Contact Info) Description 08/05/2024 Documentation Only [facility] [place], [address] [place] [address] [place] [address] [place] [address] Social History Tobacco Use Types [...] on filedocumented in this encounter Care Teams Sound Designer Relationship Specialty Start Date End Date Neva Raygoza MD [address] [place] [address] PCP - General Internal Medicine 08/05/24 documented as of this encounter
== END ==
LOC: HO.CARD 10:42
PROVIDERS: PCP Internal Medicine; Visit Provider Internal Medicine Cardiovascular Disease
DX: I42.9 Cardiomyopathy, unspecified (principal)
CPT/HCPCS: 93306

== ENCOUNTER → 2024-12-24 10:46 | Outpatient (BNV) | payer MEDICARE, SELFPAY | PROVIDERS: PCP Internal Medicine; Visit Provider Internal Medicine | DX: I35.1 Nonrheumatic aortic (valve) insufficiency (principal); I34.0 Nonrheumatic mitral (valve) insufficiency | CPT/HCPCS: 93306 ==

== ENCOUNTER 2025-01-04 13:41 | Outpatient (AMB) | payer MEDICARE, SELFPAY ==
--- NOTE | 2025-01-04 13:49 | A.OFFVIS_ITS ---
Vital Signs 01/04/25 13:50 Height 5 ft 9 in Weight 178 lb 9.191 oz BMI 26.4 BP 120/82 Blood Pressure Location Lt brachial Position Sitting Pulse 56 Intake Visit Reasons: 6 mth f/up echo Intake Note: 6 month follow-up feelng good Petrophysical Engineer Required: No Allergies sacubitril [From Entresto] Adverse Reaction (Intermediate, Verified 11/10/24 11:01) Palpitations/Afib amiodarone Adverse Reaction (Verified 11/10/24 11:01) Difficulty Breathing Medication List - Last Reconciled 01/04/25 by Elan Puri MD albuterol sulfate 90 mcg/actuation (ProAir HFA) 2 puffs inhalation Q4H PRN albuterol sulfate 2.5 mg (3 mL) inhalation BID 30 days apixaban (Eliquis) 5 mg PO BID 90 days azathioprine 100 mg PO DAILY levalbuterol HCl 1.25 mg (3 mL) inhalation BID 90 days loratadine (Children's Claritin) 5 mg PO DAILY metoprolol tartrate 50 mg PO BID nebulizers As directed valsartan 80 mg (2 x 40 mg) PO BID 90 days HPI Comments Details: Vinicio comes for follow-up. He said he continues to feel well. He has shortness of breath has significantly improved. His most recent echocardiogram shows preserved LV ejection fraction 51% with grade 2 diastolic dysfunction without significant pulmonary hypertension significant valvular abnormalities. He said he has not noticed any significant episodes of atrial fibrillation. Denies any orthopnea, PND, leg edema. No bleeding issues or neurologic events. No exertional chest pain. 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 Asthma Allergies Chronic allergic rhinitis Bronchiectasis Surgical History S/P cardiac cath Social History Patient Tobacco Use Status: Former Tobacco user Tobacco use type: Cigarette Cigarette Packs Per Day: 1 Years Smoked: 20 Review of Systems Const Denies chills, Denies fatigue, Denies fever(s), Denies frequent falls, Denies weakness, Denies weight gain and Denies weight loss ENT Denies dizziness Card Denies chest pain, Denies leg edema, Denies lightheadedness, Denies palpitations, Denies dyspnea, Denies dyspnea on exertion, Denies orthopnea and Denies other (loss of consciousness) Resp Denies cough, Denies dyspnea and Denies dyspnea on exertion GI Denies hematochezia and Denies change in stool character Musc Denies abnormal gait, Denies muscle weakness, Denies numbness, Denies radiating pain into limb and Denies tingling Neuro Denies abnormal gait, Denies dizziness, Denies frequent falls, Denies numbness, Denies tingling and Denies weakness Endo Denies fatigue and Denies palpitations Physical Exam Vital Signs: Last Vital Signs Pulse 56 01/04/25 13:50 BP 120/82 01/04/25 13:50 BMI result Body Mass Index 26.4 Const General: cooperative, healthy appearing, comfortable and no acute distress Orientation/consciousness: patient oriented x3 Neck Neck: Yes normal visual inspection and Yes no JVD Resp Effort & Inspection: normal respiratory effort Auscultation: clear to auscultation bilaterally, no crackles, no rales, no rhonchi, no wheezes and diminished lung sounds Cardio Jugular venous distension: no JVD Rate: regular rate Rhythm: regular rhythm Heart sounds: S1 normal heart sound present, S2 normal heart sound present, no murmurs and no rubs Neuro General: patient oriented x3 Extrem General: Yes normal to inspection, No no pedal edema and No calf tenderness Psych Appearance: grossly normal Mental Status: mental status grossly normal Speech and movement: Normal speech and movement present Assessment & Plan Assessment & Plan (1) PAF (paroxysmal atrial fibrillation): Code(s): I48.0 - Paroxysmal atrial fibrillation Category: Medical Plan: Highly symptomatic paroxysmal atrial fibrillation with heart failure symptoms with loss of AV synchrony. Has significant improvement since maintenance rhythm. Will continue pursue rhythm control approach. Avoid antiarrhythmic drug therapy at this point time. Continue metoprolol therapy. Avoidance of stimulants was discussed. Continue full oral anticoagulation, currently on Eliquis 5 mg b.i.d.. Semi annual renal function test should be pursued. (2) Cardiomyopathy: Code(s): I42.9 - Cardiomyopathy, unspecified Category: Medical Qualifiers: Cardiomyopathy type: unspecified Qualified Code(s): I42.9 - Cardiomyopathy, unspecified Plan: Cardiomyopathy process in the setting of atrial fibrillation. This has improved. He does have underlying low normal LV EF with grade 2 diastolic dysfunction. Continue aggressive blood pressure control. Continue neurohormonal modulation with valsartan and metoprolol therapy. Avoidance of cardiotoxic agent was discussed. Will follow up in the clinic in 6 months time, sooner p.r.n.. Thank you for allowing me to partake in his care Coding Level of Care Code Est Pt Level 4 (19841) Complex EM visit Add On G2211 Diagnoses PAF (paroxysmal atrial fibrillation) I48.0 Cardiomyopathy, unspecified type I42.9 Cardiomyopathy type: unspecified
[2025-01-04 13:50] VITALS: BP 120/82; PULSE 56; BMI 26.4
--- OUTSIDE RECORDS SUMMARY | 2025-01-04 15:37 | XMS_ITS | Encounter Summary ---
Author Organization [facility] Address [address] [place] [address] Phone Care Team Providers Care It Support Engineer Name Role Phone Neva Raygoza MD Primary Care Provider [phone] Encounter Details Date Type Department Care Team (Late st Contact Info) Description 08/05/2024 Documentation Only [facility] [place], [address] [place] [place] [address] [place] [address] [place] [address] Social History Tobacco Use Types [...] on filedocumented in this encounter Care Teams It Support Engineer Relationship Specialty Start Date End Date Neva Raygoza MD [address] [place] [address] PCP - General Internal Medicine 08/05/24 documented as of this encounter
== END 2025-01-04 14:04 | disposition home or self-care (01) ==
PROVIDERS: PCP Internal Medicine; Visit Provider Internal Medicine Cardiovascular Disease
DX: I48.0 Paroxysmal atrial fibrillation (principal); I42.9 Cardiomyopathy, unspecified
CPT/HCPCS: 99214; G2211

== ENCOUNTER → 2025-01-04 13:41 | Outpatient (BNVA) | payer MEDICARE, SELFPAY | PROVIDERS: PCP Internal Medicine; Visit Provider Internal Medicine Cardiovascular Disease | DX: I48.0 Paroxysmal atrial fibrillation (principal); I42.9 Cardiomyopathy, unspecified | CPT/HCPCS: 99212 ==

== ENCOUNTER 2025-01-28 11:47 | Outpatient (REF) | payer MEDICARE, SELFPAY ==
--- OUTSIDE RECORDS SUMMARY | 2025-01-28 12:15 | XMS_ITS | Encounter Summary ---
Author Organization [facility] Address [address] [place] [address] Phone Care Team Providers Care Welcome Hostess Name Role Phone Neva Raygoza MD Primary Care Provider [phone] Encounter Details Date Type Department Care Team (Late st Contact Info) Description 08/05/2024 Documentation Only [facility] [place], [address] [place] [address] [place] [address] [place] [address] Social History Tobacco Use Types [...] on filedocumented in this encounter Care Teams Welcome Hostess Relationship Specialty Start Date End Date Neva Raygoza MD [address] [place] [address] PCP - General Internal Medicine 08/05/24 documented as of this encounter
== END 2025-01-28 11:48 | disposition home or self-care (01) ==
LOC: HO.LNP 11:47
PROVIDERS: Visit Provider Hospitalist
DX: R91.1 Solitary pulmonary nodule (principal)
CPT/HCPCS: 87070; 87077; 87116; 87205; 87206

== ENCOUNTER 2025-02-23 13:22 | Outpatient (REF) | payer MEDICARE, SELFPAY ==
[2025-02-23 13:43] LABS: MANUAL DIFF FLAG NO
--- OUTSIDE RECORDS SUMMARY | 2025-02-23 13:54 | XMS_ITS | Clinical Summary ---
Author Organization [facility] Address [address] [place] [id number] Phone Care Team Providers Care Regional Tanker Truck Driver Name Role Phone Lc Sheldon MD Primary Care Provider Chanellvai lable Allergies No known active allergies Medications LEVALBUTEROL TARTRATE (XOPENEX HFA INHL) Dose: Not available; Form: Not available; Route: INH; Frequency: Not available; Directions: As directed; Details: Not available; Date: 05/06/2013 05/06/2013 Active FLUTICASONE/SALM ETEROL (ADVAIR HFA INHL) Dose: Not available; Form: Not available; Route: INH; Frequency: Not available; Directions: As directed; Details: Not available; Date: 05/06/2013 05/06/2013 Active ALBUTEROL SULFATE (VENTOLIN HFA INHL) Inhale into the lungs. Active MESALAMINE (LIALDA ORAL) Take by mouth. Active Active Problems No known active problems Family History Medical History Relation Comments Bleeding Disorder Neg Hx Social History Tobacco Use Types Packs/Day Years Used Date Smoking Tobacco: Former Cigarettes Q uit: 05/23/1991 Alcohol Use Standard Drinks/Week Comments Yes 12 (1 standard drink = 0.6 oz pu re alcohol) Education Answer Date Recorded Are you interested in more education? Not on sandhya e 11/15/2022 Are you concerned about learning? Not on file 11/15/2022 No 11/15/2022 No 11/15/2022 Digital Access Answer Date Recorded No 12/10/2022 No 12/10/2022 No 12/10/2022 Reliable internet access at home? Not on file 12/10/2022 Device with a working camera? Not on file Sex and Gender Information Value Date Recorded Sex Assigned at Not on file Legal Sex Male 8:06 PM EST Gender Identity Not on file Sexual Orientation Not on file Last Filed Vital Signs Vital Sign Reading Time Taken Comments Blood Pressure 153/94 05/25/2013 11:30 AM EST Pulse 93 05/25/2013 11:30 AM EST Temperature - - Respiratory Rate - - Oxygen Saturation - - Inhaled Oxygen Concentration - - Weight - - Height - - Body Mass Index - - Plan of Treatment Health Maintenance Due Date Last Done Comments Adult Td,Tdap Booster 1945 LIPID PANEL 1945 DEPRESSION SCREENING 1956 SMOKING Hx and SMOKELESS TOBACCO SCREENING 1957 PNEUMOCOCCAL VACCINES (50+ years) (1 of 1 - PCV) 1994 ZOSTER VACCINES (1 of 2) 1994 RSV VACCINE (1 - 1-dose 75+ series) 2019 COVID-19 VACCINE (3 - 2023-2 5 season) 2024 09/18/2020, 08/28/2020 HEPATITIS A VACCINES Aged Out No long er eligible based on patient's age to complete this topic HIB VACCINES Aged Out No longer eligi ble based on patient's age to complete this topic MENINGOCOCCAL VACCINES (ACWY) Aged Out No longer eligible based on patient's age to complete this topic MENINGOCOCCAL VACCINES (B) Aged Out N o longer eligible based on patient's age to complete this topic Medical Devices Not on file Insurance [employer] RE[employer]AC[employer] Care Teams Regional Tanker Truck Driver Relationship Specialty Start Date End Date Lc Sheldon MD PCP - General Family Medicine 05/14/16 Additional Source Comments The information contained in this document represents components of the legal health record. It is not the complete legal health record.[facility]
--- OUTSIDE RECORDS SUMMARY | 2025-02-23 13:54 | XMS_ITS | Encounter Summary ---
Author Organization [facility] Address [address] [place] [address] Phone Care Team Providers Care Secondary English Teacher Name Role Phone Neva Raygoza MD Primary Care Provider [phone] Encounter Details Date Type Department Care Team (Late st Contact Info) Description 08/05/2024 Documentation Only [facility] [place], [address] [place] [address] [place] [address] [place] [address] Social History Tobacco Use Types [...] on filedocumented in this encounter Care Teams Secondary English Teacher Relationship Specialty Start Date End Date Neva Raygoza MD [address] [place] [address] PCP - General Internal Medicine 08/05/24 documented as of this encounter
--- OUTSIDE RECORDS SUMMARY | 2025-02-23 13:54 | XMS_ITS | Clinical Summary ---
Author Organization [facility] Address [address] [place] [address] Phone Care Team Providers Care Outfitter Cabin Name Role Phone Neva Raygoza MD Primary [...] mouth 1 (one) time each day. Active Hospital, Clinic, or Other Facility Administered Medication Ordered Dose Route Frequency Start Date End Date Status lidocaine (XYLOCAINE) 1 % injection 4 mLIndications:Primary osteoarthritis of left knee 4 mL inj Once PRN Procedure 01/26/2025 01/26/2025 Ended methylPREDNISolone acetate (DEPO-Medrol) injection 80 mgIndications:Primary osteoarthritis of left knee 80 mg IAtc Once PRN Procedure 01/26/2025 01/26/2025 Ended Active Problems No known active problems Encounters Date Type Department Care Team Description 01/26/2025 9:45 AM EDT Office Visit Orthopedics [address] [address] Christoph Pennington PA Primary osteoarthritis of left knee (Primary Dx) from Last 3 Months Social History Tobacco [...] - Inhaled Oxygen Concentration - - Weight 78.9 kg (174 lb) 01/26/2025 9:31 AM EDT Height 172.7 cm (5' 8 ) 01/26/2025 9:31 AM EDT Body Mass Index 26.46 01/26/2025 9:31 AM EDT Plan of Treatment Health Maintenance Due Date Last Done Comments DTaP,Tdap,and Td Vaccines (1 - Tdap) 1964 Zoster Vaccines (1 of 2) 1964 Depression Screening 07/21/2024 Cholesterol Screening (Lipid Panel) 09/28/2024 Falls Risk Assessment 09/28/2024 Medicare Annual Wellness Visit 09/28/2024 Social Influencers of Health Screening 09/28/2024 COVID-19 Vaccine (7 - Pfizer risk season) 2024 06/09/2024, 05/05/2023, 10/19/2021, Additional history exists Influenza Vaccine (#1) 2025 , 05/15/2023, 04/05/2023, Additional history exists Pneumococcal Vaccine: 50+ Years Completed 10/28/2022 RSV Immunization Adult Patients Completed 04/05/2023 HIB Vaccines Aged Out No longer eligi [...] Procedure Name Priority Date/Time Associated Diagnosis Comments NC ARTHROCENTESIS/ASP IRATION/INJECTION MAJOR JOINT/BURSA W/O U/S GUIDANCE Routine 01/26/2025 9:45 AM EDT Primary osteoarthritis of left knee from Last 3 Months Results * NC ARTHROCENTESIS/ASPIRATION/INJECTION MAJOR JOINT/BURSA W/O U/S GUIDANCE (01/26/2025 9:45 AM EDT) Narrative Christoph Pennington PA - 01/26/2025 9:45 AM EDT OPAL Baker 01/26/2025 10:42 AM L Inj/Asp: L knee Indications: pain Details: 22 G needle, anterolateral approach Medications: 4 mL lidocaine 1 %; 80 mg methylPREDNISolone acetate 80 mg/mL Outcome: tolerated well, no immediate complications Informed Consent: Site: Knee Laterality: Left Relevant images/test results available and reviewed: yes Health status cleared: Yes Procedure/treatment, purpose, treatment alternatives, risks/potential complications and benefits explained: yes Risk/complications/benefits details: Risks include but are not limited to: The treatment may not accomplish the desired results. Additionally bleeding, infection, damage to tendon, nerve, cartilage, muscle; thinning or lightening of the skin in the area of injection; flushing or redness of the face, elevated blood pressure or blood sugar, allergic reaction, rash, increased pain Benefits include relief of inflammation and pain Patient questions answered: yes Patient agrees, verbalizes understanding, and wants to proceed: yes Consent given by: Patient Informed consent discussion completed by Physician/ADAN with patient: Verbal Pre-procedure timeout performed: yes us Christoph JOSEPH IN CLINIC/BEDSIDE ORDERABLES Fin al Result from Last 3 Months Insurance [employer] Care Teams Outfitter Cabin Relationship Specialty Start Date End Date Neva Raygoza MD [address] [place] [address] PCP - General Internal Medicine 09/28/24
[2025-02-23 14:33] LABS: Hematocrit 35.3 % (42.0-52.0); Hemoglobin 12.0 g/dl (14.0-18.0); Imm Gran Abs Auto 0.05 X10*3/uL (0.00-0.03); Imm Gran Pct Auto 0.8 % (0.0-0.4); Lymphocytes Absolute Auto 0.4 X10*3/uL (1.2-4.9); Mean Corpuscular HGB Conc 34.0 g/dl (31.0-36.0); Mean Corpuscular Hemoglobin 32.7 pg (27.0-33.0); Mean Corpuscular Volume 96.2 fL (80.0-98.0); NRBC Abs Auto 0.000 X10*3/uL (0.0-0.012); NRBC Pct Auto 0.0 /100WBC (0.0-0.2); Platelet Count 208 X10*3/uL (160-400); Red Blood Count 3.67 X10*6/uL (4.60-5.80); White Blood Count 6.2 X10*3/uL (4.8-10.8)
[2025-02-23 15:10] LABS: Alanine Aminotransferase 96 U/L (0-40); Albumin Level 4.3 g/dL (3.5-5.0); Alkaline Phosphatase 81 U/L (39-117); Anion Gap 10 (12-20); Aspartate Amino Transferase 70 U/L (5-37); Blood Urea Nitrogen 29 mg/dL (9-16); Calcium 8.3 mg/dL (8.4-10.2); Carbon Dioxide 27 mmol/L (22-29); Chloride 111 mmol/L (96-108); Estimated Glomerular Filt Rate 54; Potassium 4.6 mmol/L (3.3-5.1); Sodium 143 mmol/L (135-145); Total Protein 6.9 g/dL (6.5-8.0)
== END 2025-02-23 13:23 | disposition home or self-care (01) ==
LOC: HO.LAB 13:22
PROVIDERS: PCP Internal Medicine; Visit Provider Hospitalist
DX: J47.9 Bronchiectasis, uncomplicated (principal); R91.8 Other nonspecific abnormal finding of lung field
CPT/HCPCS: 36415; 80048; 80076; 85025

== ENCOUNTER 2025-06-28 12:30 | Outpatient (AMB) | payer MEDICARE, SELFPAY ==
--- NOTE | 2025-06-28 12:56 | MHC.OFFVIS ---
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 Allergies sacubitril (From Entresto) Adverse Reaction (Intermediate, Verified 06/28/25 13:00) Palpitations/Afib amiodarone Adverse Reaction (Verified 06/28/25 13:00) Difficulty Breathing Medication List - Last Reconciled 06/28/25 by Cherie Meyer NP-C albuterol sulfate 2.5 mg (3 mL) inhalation BID 30 days apixaban (Eliquis) 5 mg PO BID 90 days azathioprine 100 mg PO DAILY levalbuterol HCl 1.25 mg (3 mL) inhalation BID 90 days metoprolol tartrate 50 mg PO BID nebulizers As directed valsartan 80 mg (2 x 40 mg) PO BID HPI HPI 6 mth f/up: Details: The patient is an 79 year old male presenting for follow-up of paroxysmal atrial fibrillation. He has a history of cardiomyopathy in the setting of atrial fibrillation with rapid ventricular response. He underwent an atrial fibrillation ablation on 02/16/2024 and reports resolution of his symptoms since a few weeks post-procedure. Since the ablation, he has noted improvement in his breathing and uses his albuterol inhaler less frequently. His cardiac history includes a cardiac catheterization which showed no significant coronary artery disease. A Holter monitor from 05/25/2024 showed sinus rhythm, and an echocardiogram from 12/24/2024 demonstrated an ejection fraction of 51% with grade 2 diastolic dysfunction, no valve abnormalities, and an ascending aorta of 4 cm. He is currently treated with metoprolol for rate and rhythm control and Eliquis for anticoagulation. The patient also has a history of sleep apnea for which he uses a CPAP machine. He reports difficulty with the mask fit, leading to air leaks and frequent awakenings at night. He also reports inconsistent use of the device. For activity, he walks his dog for a mile daily and feels well doing so. Recent labs from 02/23/2025 showed a hematocrit of 35.3 and creatinine of 1.29. 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 Asthma Allergies Chronic allergic rhinitis Bronchiectasis Surgical History S/P cardiac cath Social History Patient Tobacco Use Status: Former Tobacco user Tobacco use type: Cigarette Cigarette Packs Per Day: 1 Years Smoked: 20 Review of Systems Const All systems reviewed & are unremarkable except as noted in HPI and below ENT Denies dizziness Card Denies chest pain, Denies chest pain at rest, Denies chest pain with activity, Denies rapid heart rate, Denies pedal edema, Denies edema, Denies leg edema, Denies lightheadedness, Denies palpitations, Denies dyspnea, Denies dyspnea on exertion and Denies orthopnea Resp Denies cough, Denies dyspnea and Denies dyspnea on exertion GI Denies hematochezia and Denies change in stool character Musc Denies abnormal gait, Denies limited range of motion, Denies muscle cramps, Denies muscle weakness, Denies numbness, Denies radiating pain into limb, Denies stiffness and Denies tingling Neuro Denies abnormal gait, Denies dizziness, Denies numbness and Denies tingling Endo Denies palpitations Physical Exam Vital Signs: Last Vital Signs Pulse 55 06/28/25 12:57 BP 120/52 L 06/28/25 12:57 BMI result Body Mass Index 25.8 Const General: cooperative, healthy appearing, comfortable and no acute distress Orientation/consciousness: patient oriented x3 Neck Neck: Yes normal visual inspection Resp Effort & Inspection: normal respiratory effort Auscultation: clear to auscultation bilaterally, no rales, no rhonchi and no wheezes Cardio Rate: regular rate Rhythm: regular rhythm Heart sounds: S1 normal heart sound present, S2 normal heart sound present, no gallops, no murmurs and no rubs Neuro General: patient oriented x3 Extrem General: Yes normal to inspection, No no pedal edema and No calf tenderness Psych Appearance: grossly normal Mental Status: mental status grossly normal Speech and movement: Normal speech and movement present Office Procedures EKG Details: Today, read by me sinus bradycardia, left axis deviation, inferior infarct can not be excluded, rate 55, QTC 436 millisecond [id number], Complete Assessment & Plan Assessment & Plan (1) PAF (paroxysmal atrial fibrillation): Code(s): I48.0 - Paroxysmal atrial fibrillation Category: Medical Plan: History of paroxysmal atrial fibrillation status post AFib ablation 02/16/2024. No documented recurrent AFib since that time. EKG showing sinus bradycardia, rate 55 today. Continue metoprolol for heart rate control. Continue Eliquis for anticoagulation. (2) Cardiomyopathy: Code(s): I42.9 - Cardiomyopathy, unspecified Category: Medical Qualifiers: Cardiomyopathy type: unspecified Qualified Code(s): I42.9 - Cardiomyopathy, unspecified Plan: History of cardiomyopathy in the setting of AFib RVR. Most recent echocardiogram 05/2024 showing EF 50-55%. Continue metoprolol and valsartan for neurohormonal modulation. Continue with AFib rhythm control (3) Sleep apnea: Code(s): G47.30 - Sleep apnea, unspecified Category: Medical Plan: History of sleep apnea, compliant with CPAP. Dislikes his mask. 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 Plan I discussed with the patient that he is doing very well since his atrial fibrillation ablation nearly a year and a half ago. I explained that his current medications will remain unchanged. I reinforced the importance of continuing his blood thinner, Eliquis, to prevent stroke, as atrial fibrillation can return without him knowing. We discussed his difficulties with the CPAP mask, and I advised him to speak with the prescribing doctor about alternative mask options to improve his sleep and adherence. I encouraged him to continue his daily walking and to let us know if he has any recurrence of palpitations. I advised a follow-up visit in six months, or sooner if any issues arise, and he can see either myself or Dr. Mcgill. Patient Instructions: - Continue to take all your medications as prescribed, including the blood thinner Eliquis. - It is important to stay on the blood thinner to prevent a stroke, even if your atrial fibrillation does not seem to be coming back. - Continue staying active, such as with your daily one-mile walks. - Let us know if you have any return of your atrial fibrillation symptoms, such as palpitations. - Talk to the doctor who prescribes your CPAP machine about the issues you are having with the mask leaking at night; there are different types of masks that may fit better. - We will see you back for a follow-up appointment in six months, but you can call sooner if needed. Patient was informed and verbally consented to the use of an ambient scribe for clinic note documentation during this visit. Visit time spent on chart review, interview, assessment, orders, documentation. Coding Level of Care Code Est Pt Level 4 (78987) Complex visit Add On G2211 Diagnoses PAF (paroxysmal atrial fibrillation) I48.0 Cardiomyopathy, unspecified type I42.9 Cardiomyopathy type: unspecified Sleep apnea G47.30 CPT Codes EKG - CPT: 20755-[id number], Complete ([id number]) Time Spent (min) 28
[2025-06-28 12:57] VITALS: BP 120/52; PULSE 55; BMI 25.8
== END 2025-06-28 13:19 | disposition home or self-care (01) ==
LOC: HO.HCS 12:31
PROVIDERS: PCP Internal Medicine; Visit Provider Nurse Practitioner Family
DX: I48.0 Paroxysmal atrial fibrillation (principal); I42.9 Cardiomyopathy, unspecified; G47.30 Sleep apnea, unspecified
CPT/HCPCS: 93010; 99214; G2211

== ENCOUNTER → 2025-06-28 12:30 | Outpatient (BNVA) | payer MEDICARE, SELFPAY | PROVIDERS: PCP Internal Medicine; Visit Provider Nurse Practitioner Family | DX: I48.0 Paroxysmal atrial fibrillation (principal); I42.9 Cardiomyopathy, unspecified; G47.30 Sleep apnea, unspecified; Z79.01 Long term (current) use of anticoagulants; Z79.899 Other long term (current) drug therapy; Z99.89 Dependence on other enabling machines and devices | CPT/HCPCS: 93005; 99212 ==